=== PATIENT | female | born 1940 | race Caucasian/White ===

== ENCOUNTER 2019-03-19 21:19 | Emergency (ER) | payer OTHER, MEDICARE ==
[2019-03-19] MEDS ORDERED: SMZ./TMP. 800/160 MG TABLET ONE (21:48)
[2019-03-19] MEDS ORDERED: NYSTATIN 100MU/GM CREAM 15GM TOP ONE (21:48)
--- NOTE | 2019-03-19 22:00 | ER ---
Nurse's Notes [facility] Name: Feli Rae Age: 78 yrs Sex: Female : 1940 Arrival Date: 03/19/2019 Time: 21:23 Bed 7 Private MD: Diagnosis: Rash and other nonspecific skin eruption;Candidiasis of other sites-navel;Type 2 diabetes mellitus Presentation: 03/19 21:28 Presenting complaint: Patient states: "I've been lifting some heavy containers, that aj1 was a couple days ago but then I noticed I'm leaking some fluid from around my belly button.. I've had a surgery there for a hernia in 2008." Denies fever. Reports that the drainage is clear in color, but was blood tinged. Transition of care: patient was not received from another setting of care. Onset of symptoms was 2019. Risk Assessment: Do you want to hurt yourself or someone else? Patient reports no desire to harm self or others. Initial Sepsis Screen: Does the patient meet any 2 criteria? HR > 90 bpm. No. Patient's initial sepsis screen is negative. Does the patient have a suspected source of infection? Yes: Skin breakdown/wound. Care prior to arrival: None. 21:28 Method Of Arrival: Ambulatory aj1 21:28 Acuity: RAFAEL 3 aj1 Triage Assessment: 21:30 General: Appears in no apparent distress. comfortable, Behavior is calm, cooperative, aj1 appropriate for age. Pain: Denies pain. Neuro: Level of Consciousness is awake, alert, obeys commands. Cardiovascular: Patient's skin is warm and dry. Respiratory: Airway is patent Respiratory effort is even, unlabored, Respiratory pattern is regular, symmetrical. Historical: - Allergies: 21:30 PENICILLINS; aj1 - Home Meds: 21:30 Metoprolol Tartrate Oral [Active]; aj1 - PMHx: 21:30 Hypertension; aj1 - Immunization history:: Flu vaccine is up to date. - Social history:: Smoking status: Patient/guardian denies using tobacco. - Ebola Screening: : Patient denies travel to an Ebola-affected area in the 21 days before illness onset. - Family history:: not pertinent. Screenin:11 Abuse screen: Denies threats or abuse. Denies injuries from another. Nutritional lp1 screening: No deficits noted. Tuberculosis screening: No symptoms or risk factors identified. Fall Risk None identified. Assessment: 21:45 General: Appears in no apparent distress. Behavior is calm, cooperative, appropriate lp1 for age. Pain: Denies pain. Neuro: No deficits noted. Cardiovascular: No deficits noted. Respiratory: No deficits noted. GI: No signs and/or symptoms were reported involving the gastrointestinal system. : No signs and/or symptoms were reported regarding the genitourinary system. EENT: No signs and/or symptoms were reported regarding the EENT system. Derm: Rash noted that is red, on umbilical area. Musculoskeletal: No deficits noted. Vital Signs: 21:30 BP 189 / 100; Pulse 113; Resp 20; Temp 98.9; Pulse Ox 95% on R/A; Weight 77.11 kg (R); aj1 Height 5 ft. 6 in. (167.64 cm) (R); Pain 0/10; 22:00 BP 180 / 88; Pulse 89; Resp 18; Pulse Ox 98% on R/A; lp1 21:30 Body Mass Index 27.44 (77.11 kg, 167.64 cm) [facility] ED Course: 21:23 Patient arrived in ED. jg7 21:29 Triage completed. aj1 21:31 Arvind Zhao MD is Attending Physician. [facility] 21:31 Arm band placed on Patient placed in an exam room. aj1 21:39 Jerica Gama, KALIE is Primary Nurse. lp1 22:00 Patient has correct armband on for positive identification. lp1 22:11 No provider procedures requiring assistance completed. Patient did not have IV access lp1 during this emergency room visit. Administered Medications: 21:59 Drug: Nystatin-Triamcinolone 1 application {Note: umbilicus.} Route: Topical; Site: lp1 wound; 21:59 Drug: Bactrim (160 mg-800 mg (DS) 1 tablet Route: PO; lp1 22:12 Follow up: Response: Medication administered at discharge. lp1 Outcome: 22:00 Discharge ordered by . beverly 22:11 Discharged to home ambulatory, with significant other. lp1 22:11 Condition: good 22:11 Discharge instructions given to patient, Instructed on discharge instructions, follow up and referral plans. medication usage, wound care, Demonstrated understanding of instructions, follow-up care, medications, wound care, Prescriptions given X 2. 22:12 Patient left the ED. lp1 Signatures: Zuleyma Weaver RN RN aj1 Arvind Zhao MD MD cha Pena, Laura, RN RN lp1 Lamar Narvaez7
--- NOTE | 2019-03-19 22:00 | EDPHYS ---
Physician Documentation [facility] Name: Feli Rae Age: 78 yrs Sex: Female : 1940 Arrival Date: 03/19/2019 Time: 21:23 Bed 7 Private MD: ED Physician Arvind Zhao HPI: 03/19 21:43 This 78 yrs old Female presents to ER via Ambulatory with complaints of beverly DRAINAGE FROM NAVEL. 21:43 The patient presents with cellulitis of the umbilical area. Description: The affected beverly area is small, localized, draining, erythematous. Onset: The symptoms/episode began/occurred 2 day(s) ago. Possible cause(s): unknown. Associated signs and symptoms: The patient has no apparent associated signs or symptoms. Severity of symptoms: At their worst the symptoms were mild, in the emergency department the symptoms are unchanged. The patient has not experienced similar symptoms in the past. Historical: - Allergies: 21:30 PENICILLINS; aj1 - Home Meds: 21:30 Metoprolol Tartrate Oral [Active]; aj1 - PMHx: 21:30 Hypertension; aj1 - Immunization history:: Flu vaccine is up to date. - Social history:: Smoking status: Patient/guardian denies using tobacco. - Ebola Screening: : Patient denies travel to an Ebola-affected area in the 21 days before illness onset. - Family history:: not pertinent. ROS: 21:43 Constitutional: Negative for fever, chills, and weight loss, Eyes: Negative for injury, beverly pain, redness, and discharge, ENT: Negative for injury, pain, and discharge, Neck: Negative for injury, pain, and swelling, Cardiovascular: Negative for chest pain, palpitations, and edema, Respiratory: Negative for shortness of breath, cough, wheezing, and pleuritic chest pain, Abdomen/GI: Negative for abdominal pain, nausea, vomiting, diarrhea, and constipation, Back: Negative for injury and pain, : Negative for injury, bleeding, discharge, and swelling, MS/Extremity: Negative for injury and deformity, Neuro: Negative for headache, weakness, numbness, tingling, and seizure, Psych: Negative for depression, anxiety, suicide ideation, homicidal ideation, and hallucinations, Allergy/Immunology: Negative for hives, rash, and allergies, Endocrine: Negative for neck swelling, polydipsia, polyuria, polyphagia, and marked weight changes, Hematologic/Lymphatic: Negative for swollen nodes, abnormal bleeding, and unusual bruising. 21:43 Skin: Positive for erythema, rash. Exam: 21:43 Constitutional: This is a well developed, well nourished patient who is awake, alert, beverly and in no acute distress. Head/Face: Normocephalic, atraumatic. Eyes: Pupils equal round and reactive to light, extra-ocular motions intact. Lids and lashes normal. Conjunctiva and sclera are non-icteric and not injected. Cornea within normal limits. Periorbital areas with no swelling, redness, or edema. ENT: Nares patent. No nasal discharge, no septal abnormalities noted. Tympanic membranes are normal and external auditory canals are clear. Oropharynx with no redness, swelling, or masses, exudates, or evidence of obstruction, uvula midline. Mucous membranes moist. Neck: Trachea midline, no thyromegaly or masses palpated, and no cervical lymphadenopathy. Supple, full range of motion without nuchal rigidity, or vertebral point tenderness. No Meningismus. Chest/axilla: Normal chest wall appearance and motion. Nontender with no deformity. No lesions are appreciated. Cardiovascular: Regular rate and rhythm with a normal S1 and S2. No gallops, murmurs, or rubs. Normal PMI, no JVD. No pulse deficits. Respiratory: Lungs have equal breath sounds bilaterally, clear to auscultation and percussion. No rales, rhonchi or wheezes noted. No increased work of breathing, no retractions or nasal flaring. Abdomen/GI: Soft, non-tender, with normal bowel sounds. No distension or tympany. No guarding or rebound. No evidence of tenderness throughout. Back: No spinal tenderness. No costovertebral tenderness. Full range of motion. Female : Normal external genitalia. MS/ Extremity: Pulses equal, no cyanosis. Neurovascular intact. Full, normal range of motion. Neuro: Awake and alert, GCS 15, oriented to person, place, time, and situation. Cranial nerves II-XII grossly intact. Motor strength 5/5 in all extremities. Sensory grossly intact. Cerebellar exam normal. Normal gait. Psych: Awake, alert, with orientation to person, place and time. Behavior, mood, and affect are within normal limits. 21:43 Skin: cellulitis, that is minimal, induration, that is mild is noted, injury, is not appreciated, rash a mild rash is noted. Vital Signs: 21:30 BP 189 / 100; Pulse 113; Resp 20; Temp 98.9; Pulse Ox 95% on R/A; Weight 77.11 kg (R); aj1 Height 5 ft. 6 in. (167.64 cm) (R); Pain 0/10; 22:00 BP 180 / 88; Pulse 89; Resp 18; Pulse Ox 98% on R/A; lp1 21:30 Body Mass Index 27.44 (77.11 kg, 167.64 cm) aj1 MDM: 21:31 Patient medically screened. [facility] 21:43 Data reviewed: vital signs, nurses notes, lab test result(s). [facility] 03/19 22:04 Order name: Glucose, Ancillary Testing ED[facility] 03/19 21:42 Order name: Blood Glucose Level; Complete Time: 21:59 [facility] Administered Medications: 21:59 Drug: Nystatin-Triamcinolone 1 application {Note: umbilicus.} Route: Topical; Site: lp1 wound; 21:59 Drug: Bactrim (160 mg-800 mg (DS) 1 tablet Route: PO; lp1 22:12 Follow up: Response: Medication administered at discharge. lp1 Disposition: 03/19/19 22:00 Discharged to Home. Impression: Rash and other nonspecific skin eruption, Candidiasis of other sites - navel, Type 2 diabetes mellitus. - Condition is Stable. - Discharge Instructions: Type 2 Diabetes Mellitus, Diagnosis, Adult, Rash, Rash, [id number], Diabetes Mellitus and Food, Type 2 Diabetes Mellitus, Diagnosis, Adult, [id number], Skin Yeast Infection. - Prescriptions for Bactrim DS 800- 160 mg Oral Tablet - take 1 tablet by ORAL route every 12 hours for 7 days; 14 tablet. Nystatin- Triamcinolone 100,000-0.1 unit/gram-% Topical Ointment - apply 1 application by TOPICAL route 2 times per day; 22 gram. - Medication Reconciliation Form, Thank You Letter, Antibiotic Education, Prescription Opioid Use form. - Follow up: Private Physician; When: 2 - 3 days; Reason: Recheck today's complaints, Continuance of care, Re-evaluation by your physician. - Problem is new. - Symptoms have improved. Signatures: Dispatcher [employer] Zuleyma Montgomery, KALIE RN aj1 Arvind Zhao MD MD cha Pena, Laura, RN RN lp1 Corrections: (The following items were deleted from the chart) 22:12 22:00 03/19/2019 22:00 Discharged to Home. Impression: Rash and other nonspecific skin lp1 eruption; Candidiasis of other sites - navel; Type 2 diabetes mellitus. Condition is Stable. Discharge Instructions: Rash, Rash, [id number], Skin Yeast Infection. Prescriptions for Benadryl 25 mg Oral Capsule - take 1 capsule by ORAL route every 6 hours As needed; 30 tablet, Bactrim DS 800-160 mg Oral Tablet - take 1 tablet by ORAL route every 12 hours for 7 days; 14 tablet, Nystatin-Triamcinolone 100,000-0.1 unit/gram-% Topical Ointment - apply 1 application by TOPICAL route 2 times per day; 22 gram. and Forms are Medication Reconciliation Form, Thank You Letter, Antibiotic Education, Prescription Opioid Use. Follow up: Private Physician; When: 2 - 3 days; Reason: Recheck today's complaints, Continuance of care, Re-evaluation by your physician. Problem is new. Symptoms have improved. beverly
[2019-03-19 22:18] VITALS: TEMP 98.9
[2019-03-19 22:19] VITALS: BP 180/88; O2SAT 98
== END 2019-03-19 22:12 | disposition home or self-care (01) ==
LOC: ER 21:19
DX: B37.89 Other sites of candidiasis (principal); E11.9 Type 2 diabetes mellitus without complications; I10 Essential (primary) hypertension; Z88.0 Allergy status to penicillin
CPT/HCPCS: 82947; 99283

== ENCOUNTER 2020-02-07 09:55 | Emergency (ER) | payer OTHER, MEDICARE ==
[2020-02-07] MEDS ORDERED: FENTANYL CITR 100 MCG/2 ML ONE (10:30)
[2020-02-07 10:35] LABS: Absolute Lymphocytes (CBC) 1.3 K/uL (0.7-4.9); Basophils % 0.4 % (0-1.3); Hematocrit 39.4 % (36.0-45.0); Lymphocytes % 17.8 % (15.3-44.8); MPV 6.6 fL (7.6-11.3); RBC Red Blood Cell Count 4.39 M/uL (3.86-4.86)
[2020-02-07] MEDS ORDERED: HYDROMORPHONE HCL 1 MG/ML INJ ONE (11:16)
--- NOTE | 2020-02-07 11:43 | RAD REPORT ---
EXAM DESCRIPTION: CT - Head C Spine Mpr Wo Con - 02/07/2020 10:40 am CLINICAL HISTORY: Head and neck injury status post fall. Head and neck pain COMPARISON: None. TECHNIQUE: Computed axial tomography of the head and cervical spine was obtained. Sagittal and coronal reconstruction was performed. All CT scans are performed using dose optimization technique as appropriate and may include automated exposure control or mA/KV adjustment according to patient size. FINDINGS: An intracranial bleed is not seen. The ventricles are normal in caliber. An extra-axial fl uid collection is not noted.Fluid within the visualized sinuses and mastoids is not seen Avulsion fracture spinous process of C5. Minimally displaced fracture right lamina/inferior articular process C5. Minimally displaced fracture left lamina/inferior articular process C5 . Ossification involves the anterior aspect of the cervical vertebra involves the cervical spine IMPRESSION: No acute intracranial abnormality is seen. Avulsion fracture spinous process of C5. Minimally displaced fracture right lamina/inferior articular process C5. Minimally displaced fracture left lamina/inferior articular process C5 The exam was discussed with Dr. Zhao in the Emergency Room
[2020-02-07] MEDS ORDERED: NA CHLORIDE 0.9% 1,000 ML ONE (13:14)
--- NOTE | 2020-02-07 13:44 | EDPHYS ---
Physician Documentation [facility] Name: Feli Rae Age: 79 yrs Sex: Female : 1940 Arrival Date: 02/07/2020 Time: 09:59 Bed 3 Private MD: ED Physician Arvind Zhao HPI: 02/06 13:11 This 79 yrs old Female presents to ER via EMS with complaints of Fall Injury. snw 13:29 Details of fall: The patient fell from an upright position, pt slipped on conditioner snw while she was conditioner. 13:37 Onset: The symptoms/episode began/occurred suddenly, just prior to arrival. Associated snw injuries: The patient sustained neck injury, decreased range of motion, pain, pain with movement, tenderness. Severity of symptoms: At their worst the symptoms were moderate. The patient has not experienced similar symptoms in the past. pt was to see PCP, Dr. Polo, this am for check up. + LOC, no vomiting. Pt with GCS 15 on arrival. Historical: - Allergies: 10:06 PENICILLINS; em - PMHx: 10:06 Hypertension; Diabetes - NIDDM; em - PSHx: 10:06 ; em - Immunization history: Last tetanus immunization: - up to date. - Social history:: Smoking status: Patient denies any tobacco usage or history of. ROS: 10:00 Eyes: Negative for injury, pain, redness, and discharge, ENT: Negative for injury, snw pain, and discharge, Cardiovascular: Negative for chest pain, palpitations, and edema, Respiratory: Negative for shortness of breath, cough, wheezing, and pleuritic chest pain, Abdomen/GI: Negative for abdominal pain, nausea, vomiting, diarrhea, and constipation, Back: Negative for injury and pain, : Negative for injury, bleeding, discharge, and swelling, MS/Extremity: Negative for injury and deformity, Skin: Negative for injury, rash, and discoloration, Psych: Negative for depression, anxiety, suicide ideation, homicidal ideation, and hallucinations. 10:00 Constitutional: Positive for pain upon slipping and falling in bathroom this morning. 10:00 Neck: Positive for injury or acute deformity, pain with movement, pain at rest, C-collar placed prior to arrival. 10:00 Neuro: Positive for loss of consciousness, Negative for altered mental status. Exam: 10:00 Constitutional: This is a well developed, well nourished patient who is awake, alert, snw and in no acute distress. Head/Face: Normocephalic, atraumatic. Eyes: Pupils equal round and reactive to light, extra-ocular motions intact. Lids and lashes normal. Conjunctiva and sclera are non-icteric and not injected. Cornea within normal limits. Periorbital areas with no swelling, redness, or edema. ENT: Nares patent. No nasal discharge, no septal abnormalities noted. Tympanic membranes are normal and external auditory canals are clear. Oropharynx with no redness, swelling, or masses, exudates, or evidence of obstruction, uvula midline. Mucous membranes moist. Chest/axilla: Normal chest wall appearance and motion. Nontender with no deformity. No lesions are appreciated. Cardiovascular: Regular rate and rhythm with a normal S1 and S2. No gallops, murmurs, or rubs. Normal PMI, no JVD. No pulse deficits. Respiratory: Lungs have equal breath sounds bilaterally, clear to auscultation and percussion. No rales, rhonchi or wheezes noted. No increased work of breathing, no retractions or nasal flaring. Abdomen/GI: Soft, non-tender, with normal bowel sounds. No distension or tympany. No guarding or rebound. No evidence of tenderness throughout. Back: No spinal tenderness. No costovertebral tenderness. Full range of motion. Skin: Warm, dry with normal turgor. Normal color with no rashes, no lesions, and no evidence of cellulitis. MS/ Extremity: Pulses equal, no cyanosis. Neurovascular intact. Full, normal range of motion. Neuro: Awake and alert, GCS 15, oriented to person, place, time, and situation. Cranial nerves II-XII grossly intact. Motor strength 5/5 in all extremities. Sensory grossly intact. Cerebellar exam normal. Normal gait. Psych: Awake, alert, with orientation to person, place and time. Behavior, mood, and affect are within normal limits. 10:00 Neck: External neck: remains in C-collar placed prior to arrival. Pt states positive posterior pain, no loss of function or sensation.. Vital Signs: 10:00 BP 177 / 100; Pulse 88; Resp 18; Temp 98.4(O); Pulse Ox 94% on R/A; Weight 81.65 kg; em Height 5 ft. 6 in. (167.64 cm); Pain 5/10; 10:49 BP 187 / 98; Pulse 85; Resp 18; Pulse Ox 98% on 2 lpm NC; em 11:33 BP 173 / 94; Pulse 87; Resp 18; Pulse Ox 99% on 2 lpm NC; Pain 7/10; em 12:30 BP 177 / 81; Pulse 80; Resp 19; Pulse Ox 98% on 2 lpm NC; tw2 13:00 BP 155 / 97; Pulse 76; Resp 18; Pulse Ox 99% on 2 lpm NC; Pain 2/10; em 14:00 BP 184 / 86; Pulse 97; Resp 18; Pulse Ox 99% on 2 lpm NC; Pain 5/10; em 10:00 Body Mass Index 29.05 (81.65 kg, 167.64 cm) em Bridgett Coma Score: 10:00 Eye Response: spontaneous(4). Verbal Response: oriented(5). Motor Response: obeys em commands(6). Total: 15. 10:49 Eye Response: spontaneous(4). Verbal Response: oriented(5). Motor Response: obeys em commands(6). Total: 15. 11:41 Eye Response: spontaneous(4). Verbal Response: oriented(5). Motor Response: obeys em commands(6). Total: 15. 13:00 Eye Response: spontaneous(4). Verbal Response: oriented(5). Motor Response: obeys em commands(6). Total: 15. 14:00 Eye Response: spontaneous(4). Verbal Response: oriented(5). Motor Response: obeys em commands(6). Total: 15. Trauma Score (Adult): 10:00 Eye Response: spontaneous(1); Verbal Response: oriented(1); Motor Response: obeys em commands(2); Systolic BP: > 89 mm Hg(4); Respiratory Rate: 10 to 29 per min(4); Vance Score: 15; Trauma Score: 12 10:49 Eye Response: spontaneous(1); Verbal Response: oriented(1); Motor Response: obeys em commands(2); Systolic BP: > 89 mm Hg(4); Respiratory Rate: 10 to 29 per min(4); Bridgett Score: 15; Trauma Score: 12 11:41 Eye Response: spontaneous(1); Verbal Response: oriented(1); Motor Response: obeys em commands(2); Systolic BP: > 89 mm Hg(4); Respiratory Rate: 10 to 29 per min(4); Vance Score: 15; Trauma Score: 12 13:00 Eye Response: spontaneous(1); Verbal Response: oriented(1); Motor Response: obeys em commands(2); Systolic BP: > 89 mm Hg(4); Respiratory Rate: 10 to 29 per min(4); Vance Score: 15; Trauma Score: 12 14:00 Eye Response: spontaneous(1); Verbal Response: oriented(1); Motor Response: obeys em commands(2); Systolic BP: > 89 mm Hg(4); Respiratory Rate: 10 to 29 per min(4); Vance Score: 15; Trauma Score: 12 MDM: 10:13 Patient medically screened. [facility] 13:38 Data reviewed: vital signs, nurses notes. Data interpreted: Pulse oximetry: on room air snw is 99 %. Interpretation: normal. Counseling: I had a detailed discussion with the patient and/or guardian regarding: the historical points, exam findings, and any diagnostic results supporting the discharge/admit diagnosis, the presence of at least one elevated blood pressure reading (>120/80) during this emergency department visit, lab results, radiology results, the need to transfer to another facility, for higher level of care, [facility] does not immediately have the required specialist. Physician consultation: Dr Duarte and will see patient in ED, at [facility]. later today. 13:40 ED course: Pt much more comfortable at this time. snw 02/06 10:15 Order name: CBC with Diff; Complete Time: 10:59 snw 02/06 10:15 Order name: Chem 7; Complete Time: 10:59 snw 02/06 10:15 Order name: CT Head C Spine; Complete Time: 11:54 snw 02/06 10:15 Order name: C-Collar: continue; Complete Time: 10:16 snw 02/06 12:27 Order name: Hinson; Complete Time: 12:47 snw 02/06 12:28 Order name: Oxygen Per Protocol; Complete Time: 12:47 snw Administered Medications: 10:20 Drug: fentaNYL (PF) 50 mcg Route: IVP; Site: right antecubital; em 10:55 Follow up: Response: No adverse reaction; No change in condition; Pain is unchanged, em physician notified 11:04 Drug: Dilaudid 1 mg Route: IVP; Site: right antecubital; em 11:40 Follow up: Response: No adverse reaction; Marked relief of symptoms; Pain is decreased; em RASS: Drowsy (-1) 13:11 Drug: NS 0.9% 1000 ml Route: IV; Rate: 75 ml/hr; Site: right antecubital; em 14:04 Follow up: IV Status: Infusion continued upon transfer tw2 14:06 Drug: Dilaudid 0.5 mg Route: IVP; Site: right antecubital; em 14:14 Follow up: Response: Medication administered at discharge. em Disposition: 15:47 Co-signature as Attending Physician, Arvind Zhao MD I agree with the assessment and beverly plan of care. Disposition: 02/07/20 13:43 Transfer ordered to [facility]. Diagnosis is Fracture of fifth cervical vertebra. - Reason for transfer: Higher level of care. - Accepting physician is Dr. Duarte. - Condition is Stable. - Problem is new. - Symptoms are unchanged. Signatures: Dispatcher [employer] Arvind Phipps MD MD cha Waters, Shelly, CREDIT RESOLUTION REPRESENTATIVE-C CREDIT RESOLUTION REPRESENTATIVE-Csnw Mino Chowdary, RN RN Shena Lilly RN tw2 Corrections: (The following items were deleted from the chart) 14:25 13:43 02/07/2020 13:43 Transfer ordered to [facility]. Diagnosis is em Fracture of fifth cervical vertebra. Reason for transfer: Higher level of care. Accepting physician is Dr. Duarte. Condition is Stable. Problem is new. Symptoms are unchanged. snw
--- NOTE | 2020-02-07 13:44 | ER ---
Nurse's Notes [facility] Name: Feli Rae Age: 79 yrs Sex: Female : 1940 Arrival Date: 02/07/2020 Time: 09:59 Bed 3 Private MD: Diagnosis: Fracture of fifth cervical vertebra Presentation: 02/06 10:00 Chief complaint: EMS states: was in the shower washing hair and fell and hit her head, em reports positive LOC, does take 2 baby aspirin, also reports neck and upper back pain, was placed on backboard and placed on c-collar, 18 G RAC, given 15 mg Toradol IVP x 1 RETREADER. Care prior to arrival: Cervical collar in place. Placed on backboard. IV initiated. 18 GA, in the right antecubital area. Mechanism of Injury: Fall from standing position. Trauma event details: Injury occurred in the [facility]. 10:00 Acuity: RAFAEL 3 em 10:00 Method Of Arrival: EMS: [facility] em 10:08 Coronavirus screen: Client denies travel out of the [place] in the last 14 days. Ebola em Screen: Patient negative for fever greater than or equal to 101.5 degrees Fahrenheit, and additional compatible Ebola Virus Disease symptoms Patient denies exposure to infectious person. Patient denies travel to an Ebola-affected area in the 21 days before illness onset. No symptoms or risks identified at this time. Initial Sepsis Screen: Does the patient meet any 2 criteria? Yes Does the patient have a suspected source of infection? No. Patient's initial sepsis screen is negative. Risk Assessment: Do you want to hurt yourself or someone else? Patient reports no desire to harm self or others. Onset of symptoms was February 07, 2020. Trauma Activation: Alert Physician: ED Physician; Name: Pavel; Notified At: ; Arrived At: Physician: General Surgeon; Name: ; Notified At: ; Arrived At: Physician: Radiology; Name: ; Notified At: ; Arrived At: Physician: Respiratory; Name: ; Notified At: ; Arrived At: Physician: Lab; Name: ; Notified At: ; Arrived At: Historical: - Allergies: 10:06 PENICILLINS; em - PMHx: 10:06 Hypertension; Diabetes - NIDDM; em - PSHx: 10:06 ; em - Immunization history: Last tetanus immunization: - up to date. - Social history:: Smoking status: Patient denies any tobacco usage or history of. Screenin:00 Abuse screen: Denies threats or abuse. Nutritional screening: No deficits noted. em Tuberculosis screening: No symptoms or risk factors identified. 10:00 Fall Risk Fall in past 12 months (25 points). em Primary Survey: 10:00 NO uncontrolled hemorrhage observed. A: The patient is alert. Airway: patent. em Breathing/Chest: Respiratory pattern: regular, Respiratory effort: spontaneous. Circulation: Cardiac rhythm: sinus rhythm. Disability Alert. Exposure/Environment: All clothing and personal items were removed. There is no evidence of uncontrolled external bleeding. 11:00 Reassessment Airway Airway Patent Breathing/Chest Respiratory pattern Regular em Circulation Heart tones Present Color [place] Disability Alert. Assessment: 10:00 General: Appears in no apparent distress. uncomfortable, Behavior is calm, cooperative, em appropriate for age. Pain: Complains of pain in thoracic area and neck Pain currently is 5 out of 10 on a pain scale. Neuro: Level of Consciousness is awake, alert, obeys commands, Oriented to person, place, time, situation, Reports a syncopal episode. Cardiovascular: Capillary refill < 3 seconds Patient's skin is warm and dry. Respiratory: Airway is patent Respiratory effort is even, unlabored, Respiratory pattern is regular, symmetrical. GI: Abdomen is flat, Patient currently denies nausea, vomiting. Derm: Skin is intact, is healthy with good turgor, Skin is pink, warm \T\ dry. Musculoskeletal: Capillary refill < 3 seconds, Range of motion: intact in all extremities. 10:55 Reassessment: reports pain is unchanged, reports pain has gotten worse, provider em notified. 11:33 Reassessment: Patient appears in no apparent distress at this time. Patient and/or em family updated on plan of care and expected duration. Pain level reassessed. Patient is alert, oriented x 3, equal unlabored respirations, skin warm/dry/pink. Patient states feeling better. 13:01 Reassessment: Patient appears in no apparent distress at this time. Patient and/or em family updated on plan of care and expected duration. Pain level reassessed. Patient is alert, oriented x 3, equal unlabored respirations, skin warm/dry/pink. reports feeling better, rates pain 2/10. 13:43 Reassessment: Patient appears in no apparent distress at this time. report given to ness López RN, pending transfer. 13:57 Reassessment: Patient appears in no apparent distress at this time. reports pain is em coming back, rates pain 5/10, provider notified. 14:08 Reassessment: Patient appears in no apparent distress at this time. report given to MARTY em EMS, pt placed on backboard and c-collar left in place. Vital Signs: 10:00 BP 177 / 100; Pulse 88; Resp 18; Temp 98.4(O); Pulse Ox 94% on R/A; Weight 81.65 kg; em Height 5 ft. 6 in. (167.64 cm); Pain 5/10; 10:49 BP 187 / 98; Pulse 85; Resp 18; Pulse Ox 98% on 2 lpm NC; em 11:33 BP 173 / 94; Pulse 87; Resp 18; Pulse Ox 99% on 2 lpm NC; Pain 7/10; em 12:30 BP 177 / 81; Pulse 80; Resp 19; Pulse Ox 98% on 2 lpm NC; tw2 13:00 BP 155 / 97; Pulse 76; Resp 18; Pulse Ox 99% on 2 lpm NC; Pain 2/10; em 14:00 BP 184 / 86; Pulse 97; Resp 18; Pulse Ox 99% on 2 lpm NC; Pain 5/10; em 10:00 Body Mass Index 29.05 (81.65 kg, 167.64 cm) em [place] Coma Score: 10:00 Eye Response: spontaneous(4). Verbal Response: oriented(5). Motor Response: obeys em commands(6). Total: 15. 10:49 Eye Response: spontaneous(4). Verbal Response: oriented(5). Motor Response: obeys em commands(6). Total: 15. 11:41 Eye Response: spontaneous(4). Verbal Response: oriented(5). Motor Response: obeys em commands(6). Total: 15. 13:00 Eye Response: spontaneous(4). Verbal Response: oriented(5). Motor Response: obeys em commands(6). Total: 15. 14:00 Eye Response: spontaneous(4). Verbal Response: oriented(5). Motor Response: obeys em commands(6). Total: 15. Trauma Score (Adult): 10:00 Eye Response: spontaneous(1); Verbal Response: oriented(1); Motor Response: obeys em commands(2); Systolic BP: > 89 mm Hg(4); Respiratory Rate: 10 to 29 per min(4); [place] Score: 15; Trauma Score: 12 10:49 Eye Response: spontaneous(1); Verbal Response: oriented(1); Motor Response: obeys em commands(2); Systolic BP: > 89 mm Hg(4); Respiratory Rate: 10 to 29 per min(4); [place] Score: 15; Trauma Score: 12 11:41 Eye Response: spontaneous(1); Verbal Response: oriented(1); Motor Response: obeys em commands(2); Systolic BP: > 89 mm Hg(4); Respiratory Rate: 10 to 29 per min(4); [place] Score: 15; Trauma Score: 12 13:00 Eye Response: spontaneous(1); Verbal Response: oriented(1); Motor Response: obeys em commands(2); Systolic BP: > 89 mm Hg(4); Respiratory Rate: 10 to 29 per min(4); [place] Score: 15; Trauma Score: 12 14:00 Eye Response: spontaneous(1); Verbal Response: oriented(1); Motor Response: obeys em commands(2); Systolic BP: > 89 mm Hg(4); Respiratory Rate: 10 to 29 per min(4); Bridgett Score: 15; Trauma Score: 12 ED Course: 09:59 Patient arrived in ED. em 10:00 Arm band placed on. em 10:00 Patient has correct armband on for positive identification. Placed in gown. Bed in low em position. Call light in reach. Side rails up X2. Pulse ox on. NIBP on. 10:00 Maintain EMS IV. Dressing intact. Good blood return noted. Site clean \T\ dry. Gauge \T\ em site: 18 G RAC. 10:00 Patient maintains SpO2 saturation greater than 95% on room air. Thermoregulation: warm em blanket given to patient. 10:03 Triage completed. em 10:07 Mino Chowdary RN is Primary Nurse. em 10:13 Arvind Zhao MD is Attending Physician. beverly 10:14 Angle Viveros FNP-C is [facility]. snw 10:14 Arvind Zhao MD is Attending Physician. snw 10:38 CT Head C Spine In Process Unspecified. EDMS 12:46 Hinson cath inserted, using sterile technique, 16 Fr., by me, balloon inflated, to ss gravity drainage. 13:15 No provider procedures requiring assistance completed. em 14:18 Patient transferred, IV remains in place. em Administered Medications: 10:20 Drug: fentaNYL (PF) 50 mcg Route: IVP; Site: right antecubital; em 10:55 Follow up: Response: No adverse reaction; No change in condition; Pain is unchanged, em physician notified 11:04 Drug: Dilaudid 1 mg Route: IVP; Site: right antecubital; em 11:40 Follow up: Response: No adverse reaction; Marked relief of symptoms; Pain is decreased; em RASS: Drowsy (-1) 13:11 Drug: NS 0.9% 1000 ml Route: IV; Rate: 75 ml/hr; Site: right antecubital; em 14:04 Follow up: IV Status: Infusion continued upon transfer tw2 14:06 Drug: Dilaudid 0.5 mg Route: IVP; Site: right antecubital; em 14:14 Follow up: Response: Medication administered at discharge. em Output: 14:10 Urine: 500ml (Hinson); Total: 500ml. em Outcome: 13:43 ER care complete, transfer ordered by . snw 14:18 Transferred by ground EMS to [facility], Transfer form completed. X-rays sent em w/ patient. 14:18 Condition: stable 14:18 Patient's length of stay in the Emergency Department was greater than 2 hours. pending accepting transfer Patient's length of stay extended due to 14:25 Patient left the ED. em Signatures: Dispatcher [employer] EDMS Arvind Zhao MD MD cha Waters, Shelly, FNP-C [facility] Mino Chowdary, KALIE JADE Brianda Yang RN RN Shena Botello RN RN tw2
[2020-02-07] MEDS ORDERED: HYDROMORPHONE HCL 0.5 MG/0.5 ML INJ ONE (14:13)
[2020-02-07 15:45] VITALS: TEMP 98.4
[2020-02-07 15:52] VITALS: O2SAT 99
[2020-02-07 15:55] VITALS: BP 184/86
== END 2020-02-07 14:25 | disposition short-term general hospital (02) ==
LOC: ER 09:55
DX: S12.400A Unspecified displaced fracture of fifth cervical vertebra, initial encounter for closed fracture (principal); W01.0XXA Fall on same level from slipping, tripping and stumbling without subsequent striking against object, initial encounter; Y93.E1 Activity, personal bathing and showering; Y92.9 Unspecified place or not applicable; I10 Essential (primary) hypertension; Z88.0 Allergy status to penicillin
CPT/HCPCS: 85025; 80048; 36415; 70450; 72125; J3010; J1170 ×2; J7030; 51702; 96361; 96374; 96375; 99285; G0390

== ENCOUNTER 2020-02-14 09:40 | Inpatient (IN) | payer OTHER, MEDICARE ==
--- NOTE | 2020-02-14 12:17 | R.PREADM ---
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 ACUTE CLINICAL PROJECT MANAGER/DC ABRASIVE SAWYER ZOHREH RICHARDS ATTENDING PHYSICIAN IRASEMA PALACIO DO REFERRING PHYSICIAN IRASEMA PALACIO DO REHAB FACILITY [facility] CLINICAL LIAISON Karel Mejia PHYSICIAN REVIEWER Dr. Asim Sanchez M.D. MR# [id number] NAME CHELY WAGNER ADDRESS [address] [place] [address] PHONE [facility] [id number] DATE OF 1940 AGE 79 SSN# [id number] GENDER female MARITAL STATUS RACE unknown race ADMIT FROM 02 - [facility] PRE-HOSPITAL LIVING SETTING 01 - Home (private home/apt. board/care, assisted living, mcc, transitional living) HOME TYPE AND DETAILS Type of home: single family house # of levels in the residence: 1 # of steps within the residence: 0 # of steps to enter the residence: 0 PRE-HOSPITAL LIVING WITH Family/Relatives FAMILY SUPPORT Yes PHONE PRIMARY FAMILY CONTACT ON ADM.? no IS PRIMARY FAMILY CONTACT AUTH. REP.? no PHONE 1ST CONTACT ON ADM. no IS 1ST CONTACT AUTH. REP.? no PHONE 2ND CONTACT ON ADM.? no PATIENT EMPLOYMENT STATUS Retired (for age) PATIENT EMPLOYER No Employer PAYOR INFORMATION: 1ST PAYOR NAME MEDICARE 1ST PAYOR PHONE 1ST PAYOR INJURY/ILLNESS DUE TO ACCIDENT? No ANOTHER CONSTITUTION PARTY RESPONSIBLE? No PRIMARY REHAB/ACUTE DIAGNOSIS: FRACTURE OF SIXTH CERVICAL VERTEBRA ONSET DATE 02/07/2020 REHAB IMPAIRMENT CATEGORY (BARBARA): 04 Traumatic spinal cord injury (TSCI) MEETS 60% rule PRIMARY DIAGNOSIS-RELATED SURGERIES: C3T2 PS1F,C4-C7 LAMINECTOMY SUMMARY OF ACUTE HOSPITALIZATION: Pt. is a 79 yo Right-handed female of unknown race. On 02/07/2020 she was admitted to [facility] with diagnosis FRACTURE OF SIXTH CERVICAL VERTEBRA . 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 Pre-morbidly, Pt. was independent/mod-I in Locomotion, Balance, Safety Awareness, Transfers Control, and Self-Care; and she had good Endurance and Communication. Currently, she has deficits of Locomotion, Balance, Sphincter Control, and Self-Care. Pt. is now referred to [facility] for acute in-patient rehabilitation in order to maximize patient's functional independence in activities of daily living, strength, ROM, and mobi lity. Patient has realistic goal of being discharged at assistance level 7-Ind to reside at Home with Fami ly/Relatives. PAST MEDICAL HISTORY DIABETES HYPERTENSION AFIB CERVICAL SPINAL FRX PAST SURGICAL HISTORY: CS X2 HERNIA REPAIR X2 HYSTERECTOMY MEDICATION ALLERGIES: No Known Drug Allergies (NKDA) ENVIRONMENTAL ALLERGIES: - Substance Allergies None Known - Other Allergies None Known CODE STATUS: Full code WEIGHT/HEIGHT/BMI: WEIGHT 180 lbs HEIGHT 5' 6" BMI 29 DIET: - Diet Type Regular - Diet - Solid Texture Regular - Diet - Liquid Texture Regular - Tube Feed N/A REVIEW OF SYSTEMS: - Gen Alert and awake Lying in bed No apparent distress Oriented to: person, time, and place - Vital Signs Temperature: 96.8 F SBP/DBP: 140/73 Pulse: 69 Resp: 21 Vital signs stable, afebrile - CVS RRR VITAL SIGNS Temperature: 96.8 F SBP/DBP: 140/73 Pulse: 69 Resp: 21 Vital signs stable, afebrile MEDICATIONS/TREATMENT: Other- See attached MAR (Medication Administration Record). CURRENT SPHINCTER CONTROL: Pre-hospital bladder status: unspecified # of bladder accidents in the last 7 days prior to screenin Pre-hospital bowel status: unspecified # of bowel accidents in the last 7 days prior to screenin Last Bowel Movement Date: 02/14/2020 CURRENT LOCOMOTION STATUS: distance walked 200 feet WITH ROLLING WALKER DETAILED CURRENT FUNCTIONAL STATUS: - Bladder accident frequency: Ind - No accidents in the past 7 days - Bowel accident frequency: Ind - No accidents in the past 7 days - Walking score based on distance walked: 0(N/A) score based on distance walked: 3(>=150ft) - Wheelchair score based on distance traveled: 0(N/A) QI SCORES: - Self-Care A. Eating 03-Partial/moderate assistance B. Oral hygiene 03-Partial/moderate assistance C. Toileting hygiene 88-Not attempted due to medical condition or safety concerns E. Shower/bathe self 03-Partial/moderate assistance F. Upper body dressing 02-Substantial/maximal assistance G. Lower body dressing 02-Substantial/maximal assistance - Mobility A. Roll left and right 03-Partial/moderate assistance B. Sit to lying 03-Partial/moderate assistance C. Lying to sitting on side of bed 03-Partial/moderate assistance D. Sit to stand 02-Substantial/maximal assistance E. Chair/[id number] transfer 02-Substantial/maximal assistance F. Toilet transfer 03-Partial/moderate assistance G. Car transfer 03-Partial/moderate assistance I. Walk 10 feet 03-Partial/moderate assistance J. Walk 50 feet with two turns 03-Partial/moderate assistance K. Walk 150 feet 03-Partial/moderate assistance L. Walking 10 feet on uneven surfaces 88-Not attempted due to medical condition or safety concerns M. 1 step (curb) 88-Not attempted due to medical condition or safety concerns N. 4 steps 88-Not attempted due to medical condition or safety concerns O. 12 steps 88-Not attempted due to medical condition or safety concerns P. Picking up object 88-Not attempted due to medical condition or safety concerns R. Wheel 50 feet with two turns 88-Not attempted due to medical condition or safety concerns S. Wheel 150 feet 88-Not attempted due to medical condition or safety concerns - Bladder and Bowel Bladder continence Bowel continence - Endurance Fair - Balance Fair - Safety Awareness Fair CURRENT FUNC. DEFICITS: Self-Care, Mobility, Endurance, Balance, and Safety Awareness HISTORY OF FALLS. HAS THE PATIENT HAD TWO OR MORE FALLS IN THE PAST YEAR OR ANY FALL WITH INJURY IN T HE PAST YEAR?: No PRIOR SURGERY. DID THE PATIENT HAVE MAJOR SURGERY DURING THE 100 DAYS PRIOR TO ADMISSION?: No THERAPY NOTES FROM ACUTE CARE: Attached. SPECIAL NEEDS: - Safety Concerns Skin breakdown precautions needed due to skin breakdown risk PATIENT NEEDS ACTIVE AND ONGOING THERAPEUTIC INTERVENTION OF MULTIPLE THERAPY DISCIPLINES, INCLUDING: - Orthotics/Prosthetics Orthotic Evaluation. Splinting/Casting. - Dietary and Nutrition Adequate Nutrition. Nutritional Education. Nutritional Supplements. PATIENT NEEDS CLOSE MEDICAL SUPERVISION BY A REHABILITATION PHYSICIAN FOR: Coordination of Treatment Team PATIENT REQUIRES 24X7 REHAB NURSING FOR MEDICAL AND FUNCTIONAL MGT. OF THE FOLLOWING DEFICITS: Disease Management Medication Management Patient/Family Education Providing Safe Environment PATIENT REQUIRES INTENSIVE, COORDINATED INTERDISCIPLINARY APPROACH TO REHAB: Arranging Home Equipment/Services Discharge Planning Family Intervention/Training Deputy Court Clerk/Case Management PATIENT REHAB POTENTIAL: Brian WAGNER is able and expected to receive 3 hours of individualized therapy daily on at least 5 of rody ry 7 days Brian ARREAGAs prognosis for significant practical improvement within a reasonable period of time appears Good Expected level of measurable improvement will be of a practical value to Brian ARREAGAs functional capaci ty or adaptations to impairments Has a viable Discharge Plan Medically appropriate; condition is sufficiently stable to participate in intensive rehab program DISCHARGE PLAN: - Estimated Length of Stay (days) 27. - Consensus on plan Discharge plan has been discussed with primary caregiver. Patient/Family is in agreement with the milli n. Primary caregiver is in agreement with the plan. - Patient/Family Goals Return home independently. - Planned Living Setting Upon Discharge Home, to live with Family/Relatives. Transitional Living. RECOMMENDED CARE LEVEL: IRF RECOMMENDATION DETAILS: Recommended Admission to Comprehensive Rehabilitation Program to Increase Functional [place] SCREENER'S COMPLETENESS CONFIRMATION: - Screening Confirmation The patient data collection on this preadmission screening form is finished PHYSICIANS REVIEW AND ADMISSION DETERMINATION Admit - Based on my review of the Pre-Admission Screening results, in my medical judgment and experie nce, I concur with the findings and recommend admission to [facility], as this patient requires an IRF level of care. SIGNATURE PANEL: Hearing Officer - [electronically] signed by Karel Mejia on 02/14/2020 at 11:17 (STRETCHING PRESS OPERATOR) Hearing Officer - [electronically] signed by Hieu Conn PT on 02/14/2020 at 12:07 (STRETCHING PRESS OPERATOR) Physician Reviewer - [electronically] signed by Dr. Asim Sanchez M.D. on 02/14/2020 at 12:17 (STRETCHING PRESS OPERATOR )
[2020-02-14] MEDS ORDERED: D50W 25 GM/50 ML SYRINGE IV PRN (18:41)
[2020-02-14] MEDS ORDERED: DOCUSATE NA/SENNA CONC 1 TAB PO PRN (18:41)
[2020-02-14] MEDS ORDERED: GLUCAGON 1 MG/VIAL IM PRN (18:41)
[2020-02-14] MEDS ORDERED: METOPROLOL TAR 50 MG TAB PO SCH (20:00)
[2020-02-14] MEDS: TRAMADOL HCL 50 MG TAB PO PRN (20:19)
[2020-02-14] MEDS: METOPROLOL TAR 50 MG TAB PO SCH (20:20)
[2020-02-14 21:33] LABS: Urine Appearance CLOUDY; Urine Bilirubin NEGATIVE (NEG); Urine Blood NEGATIVE (NEG); Urine Color YELLOW; Urine Glucose TRACE (NEG); Urine Protein NEGATIVE (NEG); Urine Urobilinogen 0.2 mg/dL (0.2-1.0); Urine pH 5.5 (5.0-7.0)
[2020-02-14 21:48] LABS: Urine Bacteria <20 /HPF (<20); Urine RBC <5 /HPF (NONE SEEN); Urine Yeast PRESENT (NONE SEEN)
[2020-02-15] MEDS ORDERED: LOPERAMIDE HCL 2 MG CAPSULE PO PRN (03:19)
[2020-02-15 06:10] LABS: Albumin 2.9 g/dL (3.4-5.0); BUN Blood Urea Nitrogen 12 mg/dL (7-18); Bicarbonate 27 mmol/L (21-32); Glucose Level 173 mg/dL (74-106); Magnesium 2.1 mg/dL (1.8-2.4); Potassium 3.7 mmol/L (3.5-5.1); Prealbumin 15.5 mg/dL (20-40); Sodium Level 140 mmol/L (136-145)
[2020-02-15 07:01] LABS: Absolute Lymphocytes (CBC) 1.4 K/uL (0.7-4.9); Basophils % 0.6 % (0-1.3); Hematocrit 36.4 % (36.0-45.0); Lymphocytes % 16.3 % (15.3-44.8); MPV 6.6 fL (7.6-11.3); RBC Red Blood Cell Count 3.95 M/uL (3.86-4.86)
[2020-02-15] MEDS: ENOXAPARIN 30 MG/0.3 ML SQ SCH ×2 (07:14→19:37)
[2020-02-15] MEDS: INSULIN GLARGINE 100 UNITS/ML SQ SCH (07:56)
[2020-02-15] MEDS: METOPROLOL TAR 50 MG TAB PO SCH ×2 (07:57→19:37)
[2020-02-15] MEDS: TRAMADOL HCL 50 MG TAB PO PRN ×2 (07:58→12:11)
[2020-02-15] MEDS: CALCIUM CARBONATE 500 MG TAB PO SCH ×2 (07:58→19:37)
[2020-02-15] MEDS: ASPIRIN 81 MG CHEWABLE TABLET PO SCH (07:58)
[2020-02-15] MEDS ORDERED: GLUCAGON 1 MG/VIAL IM PRN (09:15)
[2020-02-15] MEDS ORDERED: D50W 25 GM/50 ML SYRINGE IV PRN (09:15)
[2020-02-15] MEDS ORDERED: LOPERAMIDE HCL 2 MG CAPSULE PO ONE (10:45)
[2020-02-15] MEDS: INSULIN -REGULAR HUMAN 50 UNIT/0.5 ML ML SQ SCH ×3 (12:13→19:46)
--- NOTE | 2020-02-15 17:56 | R.HP ---
HISTORY AND PHYSICAL FACILITY: [facility] ENCOUNTER DATE AND TIME: 02/15/2020 17:50 (INFORMATION CODER) MR#: [id number] NAME CHELY WAGNER ADDRESS: [address] [place] [address]: [place] [id number] PHONE: DATE OF : 1940 AGE: 79 SSN# [id number] GENDER: Female DEXTERITY Right-handed MARITAL STATUS RACE Unknown race PRE-HOSPITAL LIVING SETTING 01 - Home (private home/apt. board/care, assisted living, mcc, transitional living) PRE-HOSPITAL LIVING WITH Family/Relatives ENCOUNTER PHYSICIAN: Dr. Asim Sanchez M.D. REFERRING DOCTOR: IRASEMA PALACIO DO DATE OF ADMISSION: 02/14/2020 17:15 (INFORMATION CODER) REFERRING FACILITY [facility] HOME TYPE AND DETAILS: Type of home: single family house # of levels in the residence: 1 # of steps within the residence: 0 # of steps to enter the residence: 0 ONSET DATE: 02/07/2020 PRIMARY DIAGNOSIS-RELATED SURGERIES: C3T2 PS1F,C4-C7 LAMINECTOMY HISTORY OF PRESENT ILLNESS (HPI): Pt. is a 79 yo Right-handed female of unknown race. On 02/07/2020 [address] to [facility] with diagnosis FRACTURE OF SIXTH CERVICAL VERTEBRA . 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 Pre-morbidly, Pt. was independent/mod-I in Locomotion, Balance, Safety Awareness, Transfers Control, and Self-Care; and she had good Endurance and Communication. Currently, she has deficits of Locomotion, Balance, Sphincter Control, and Self-Care. Pt. is now referred to [facility] for acute in-patient rehabilitation in order to maximize patient's functional independence in activities of daily living, strength, ROM, and mobi lity. Patient has realistic goal of being discharged at assistance level 7-Ind to reside at Home with Fami ly/Relatives. MEDICATION ALLERGIES: No Known Drug Allergies (NKDA) ENVIRONMENTAL ALLERGIES: - Substance Allergies None Known - Other Allergies None Known PAST MEDICAL HISTORY: DIABETES HYPERTENSION AFIB CERVICAL SPINAL FRX PAST SURGICAL HISTORY: CS X2 HERNIA REPAIR X2 HYSTERECTOMY SOCIAL HISTORY: - Home Living Family/Relatives REVIEW OF SYSTEMS: - Gen No Chills No Fatigue No Fever - Eyes No Double Vision No itchiness - ENMT No Difficulty Swallowing - CVS No Chest Discomfort No Chest Pain No Fatigue No Weight Gain - Resp No Cough No Shortness of Breath - GI Continent No Abdominal Pain No Constipation Diarrhea - Continent No Kidney Pain No Painful Urination No Urinary Urgency - MSK No Joint Pain Muscle Cramps Stiffness - Skin No Itching No Rash No Suspicious Lesions - Neuro Coordination Difficulty No Difficulty with Concentration No Memory Loss No Seizures No Weakness - Psych No Anxiety No Depression No HIV Exposure No Persistent Infections No Seasonal Allergies - Endo No Cold/Heat Intolerance No Excessive Hunger No Excessive Thirst No Excessive Urination PHYSICAL EXAM - Gen Alert and awake Lying in bed No apparent distress Oriented to: person, time, and place - Skin No skin breakdown. No abnormalities - Eyes No abnormalities - ENMT No abnormalities - Neck No abnormalities - CVS RRR - Chest No abnormalities - Resp Clear to auscultation - Abd Soft - GI Soft No abnormalities - No abnormalities - Ext No significant edema - MSK Unremarkable - Neuro No focal deficits - Psych No abnormalities VITAL SIGNS Temperature: 98.7 F SBP/DBP: 140/67 Pulse: 75 Resp: 16 NURSING: - Shower allowing shower - Bladder care per protocol - Skin care per protocol ACTIVITIES OOB only with supervision QI SCORES: - Self-Care A. Eating 03-Partial/moderate assistance B. Oral hygiene 03-Partial/moderate assistance C. Toileting hygiene 88-Not attempted due to medical condition or safety concerns E. Shower/bathe self 03-Partial/moderate assistance F. Upper body dressing 02-Substantial/maximal assistance G. Lower body dressing 02-Substantial/maximal assistance - Mobility A. Roll left and right 03-Partial/moderate assistance B. Sit to lying 03-Partial/moderate assistance C. Lying to sitting on side of bed 03-Partial/moderate assistance D. Sit to stand 02-Substantial/maximal assistance E. Chair/mva-kw-paloi transfer 02-Substantial/maximal assistance F. Toilet transfer 03-Partial/moderate assistance G. Car transfer 03-Partial/moderate assistance I. Walk 10 feet 03-Partial/moderate assistance J. Walk 50 feet with two turns 03-Partial/moderate assistance K. Walk 150 feet 03-Partial/moderate assistance L. Walking 10 feet on uneven surfaces 88-Not attempted due to medical condition or safety concerns M. 1 step (curb) 88-Not attempted due to medical condition or safety concerns N. 4 steps 88-Not attempted due to medical condition or safety concerns O. 12 steps 88-Not attempted due to medical condition or safety concerns P. Picking up object 88-Not attempted due to medical condition or safety concerns R. Wheel 50 feet with two turns 88-Not attempted due to medical condition or safety concerns S. Wheel 150 feet 88-Not attempted due to medical condition or safety concerns - Bladder and Bowel Bladder continence Bowel continence - Endurance Fair - Balance Fair - Safety Awareness Fair CURRENT FUNC. DEFICITS: Self-Care, Mobility, Endurance, Balance, and Safety Awareness MEDICATIONS: - Other See attached MAR (Medication Administration Record) ASSESSMENT: Pt. is a 79 yo Right-handed female of unknown race.On 02/07/[address] 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 was independent/mod-I in L ocomotion, Balance, Safety Awareness, Transfers Control, and Self-Care; and she had good Endurance an d Communication.Currently, she has deficits of Locomotion, Balance, Sphincter Control, and Self-Care. Pt. is now referred to [facility] for acute in-patient rehabilitation in order to maximize patient's functional independence in activities of daily living, strength, ROM, and mobi lity.- Rehab Goal Patient has realistic goal of being discharged at assistance level 7-Ind to reside at Home with Fami ly/Relatives. - Physical Therapy Gait dysfunction - to improve, our physical therapists will perform initial evaluation of pt's status upon admission and devise an individualized program for Gait Training, and Wheel Chair mobility Need for home safety evaluation - to improve, our physical therapists will perform initial evaluation of pt's status upon admission and devise an individualized program for Home Evaluation Need in caregiver upon discharge - to improve, our physical therapists will perform initial evaluatio n of pt's status upon admission and devise an individualized program for Caregiver Training New precaution - to improve, our physical therapists will perform initial evaluation of pt's status u janet admission and devise an individualized program for Patient precaution education Edema - to improve, our physical therapists will perform initial evaluation of pt's status upon admi ssion and devise an individualized program for Elevation Training, and Lymphedema Therapy Poor balance - to improve, our physical therapists will perform initial evaluation of pt's status upo n admission and devise an individualized program for Balance Training Weakness - to improve, our physical therapists will perform initial evaluation of pt's status upon ad mission and devise an individualized program for Aquatic Therapy, Neuromuscular Reeducation, and Stre ngthening Achieving independence - to improve, our physical therapists will perform initial evaluation of pt's status upon admission and devise an individualized program for Community Reintegration Activities - Occupational Therapy ADL deficits - to improve, our occupation therapists will perform initial evaluation of pt's status u janet admission and devise an individualized program for Bathing, Bed mobility, Community Reintegration , Cooking, Dressing, Eating, Fine Motor Skills, Grooming, Homemaking, Kitchen Mobility, Laundry, Randa ent Education, Safety Awareness, Splinting - Positioning, Transfers(Toilet, Tub, Shower), and Wheel C hair Management Need for home care chaplain - to improve, our occupation therapists will perform initial evaluation of pt's s tatus upon admission and devise an individualized program for Caregiver Training Weakness - to improve, our occupation therapists will perform initial evaluation of pt's status upon admission and devise an individualized program for Aquatic Therapy, Balance, Endurance, UE ROM, and U E strengthening MEDICAL PLAN: - Diet Type Start Regular - Diet - Liquid Texture Start Regular - Tube Feed Start N/A - Bladder care per protocol - Skin care per protocol - Other See attached MAR (Medication Administration Record) - Diet - Solid Texture Regular - Shower shower DISCHARGE PLAN: - Estimated Length of Stay (days) 27. - Consensus on plan Discharge plan has been discussed with primary caregiver. Patient/Family is in agreement with the milli n. Primary caregiver is in agreement with the plan. - Patient/Family Goals Return home independently. - Planned Living Setting Upon Discharge Home, to live with Family/Relatives. Transitional Living. SIGNATURE PANEL: (INFORMATION CODER)
--- NOTE | 2020-02-15 17:57 | PAPE ---
POST ADMISSION PHYSICIAN EVALUATION PATIENT: [facility] MR# [id number] REFERRING DOCTOR IRASEMA PALACIO DO EVALUATION DATE AND TIME 02/15/2020 17:56 (EMERGENCY PLANNING AND RESPONSE MANAGER) NAME CHELY WAGNER DATE OF 1940 AGE 79 PHONE SSN# [id number] GENDER female EVALUATING PHYSICIAN Dr. Asim Sanchez M.D. ADMISSION DIAGNOSIS: FRACTURE OF SIXTH CERVICAL VERTEBRA ONSET DATE 02/07/2020 POST-ADMISSION FUNCTIONAL/MEDICAL STATUS: - Bladder Same accident frequency: Ind - No accidents in the past 7 days - Bowel Same accident frequency: Ind - No accidents in the past 7 days - Walking Same score based on distance walked: 0(N/A) Same score based on distance walked: 3(>=150ft) - Wheelchair Same score based on distance traveled: 0(N/A) STATUS CHANGE EVALUATION: No change in Functional or Medical Status is identified compared with Pre-Admission screening. PATIENT NEEDS CLOSE MEDICAL SUPERVISION BY A REHABILITATION PHYSICIAN FOR: Coordination of Treatment Team PATIENT REQUIRES 24X7 REHAB NURSING FOR MEDICAL AND FUNCTIONAL MGT. OF THE FOLLOWING DEFICITS: Disease Management Medication Management Patient/Family Education Providing Safe Environment PATIENT REQUIRES INTENSIVE, COORDINATED INTERDISCIPLINARY APPROACH TO REHAB: Arranging Home Equipment/Services Discharge Planning Family Intervention/Training Machine Learning Intern/Case Management LIST OF IDENTIFIED AND POTENTIAL PROBLEMS: Alteration in leisure activities Bladder, Incontinence Bowel, Incontinence Infection, Actual or Potential Mobility Impaired Pain, Alteration in Comfort Self Care Deficit Skin Integrity, Actual or Potential Urinary Tract Infection (UTI), Actual or Potential PATIENT COULD BE AT RISK FOR COMPLICATIONS FROM ADVERSE MEDICAL CONDITIONS DUE TO HIS/HER COMORBIDITI ES AND THE RIGORS OF THE INTENSIVE REHABILLITATION PROGRAM. METHODS OR INTERVENTIONS TO AVOID COMPLIC ATIONS INCLUDE: - Infection Clinical staff to assess and manage the signs and symptoms of infection including fever, redness, war mth, etc. - Urinary Tract Infection - Falls Patient will be evaluated for Fall Precautions and will be placed on Fall Precautions as indicated pe r protocol. - Skin Breakdown Nursing will assess skin daily using assessment tool and will place on Skin Breakdown Precautions as indicated per protocol. - Pain Clinical staff may employ non-medication methods such as massage, distraction, decrease stimulus, etc . as needed. Clinical staff will assess patient's pain level every shift per protocol to assess and e nsure pain management effectiveness. Medications will be given and the pain level re-assessed. PRELIMINARY PLAN OF CARE: - Physical Therapy Patient needs Physical Therapy for a daily minimum of 1.5 hours at least 5 out of 7 days, to improve: Mobility, Strengthening, Transfers, Stretching, ROM, Endurance, Ability to manage stairs, Gait, and Balance. - Rehabilitation Nursing Patient requires 24x7 Rehabilitation Nursing for: Pain Issues, Identifying and preventing risk factor s, Monitoring and reporting current medical conditions, Assisting with ambulation and transfer, Festus ting with all ADL-s, Teaching patients about disease process and medications, Family teaching, Provid ing safe environment, Bowel and Bladder Issues, Skin Integrity, and Medication Management. Patient needs Machine Learning Intern and/or Case Management for: Discharge Planning, Arranging Home Equipmen t or Services, and Family Interventions. - Dietary and Nutrition Services Patient needs Dietary and Nutrition Services for: Adequate Nutrition, Nutritional Supplements, and Nu tritional Education. - Occupational Therapy Patient needs Occupational Therapy for a daily minimum of 1.5 hours at least 5 out of 7 days, to impr ove Activities of Daily Living, including: Eating, Grooming, Bathing, Dressing, Toileting, Toilet Tra nsfers, Community Reintegration, Higher functional activities, Adaptive Equipment, Splinting, Househo ld Tasks, and Other activities as determined. QI SCORES: - Self-Care A. Eating 03-Partial/moderate assistance B. Oral hygiene 03-Partial/moderate assistance C. Toileting hygiene 88-Not attempted due to medical condition or safety concerns E. Shower/bathe self 03-Partial/moderate assistance F. Upper body dressing 02-Substantial/maximal assistance G. Lower body dressing 02-Substantial/maximal assistance - Mobility A. Roll left and right 03-Partial/moderate assistance B. Sit to lying 03-Partial/moderate assistance C. Lying to sitting on side of bed 03-Partial/moderate assistance D. Sit to stand 02-Substantial/maximal assistance E. Chair/rur-xs-akvwr transfer 02-Substantial/maximal assistance F. Toilet transfer 03-Partial/moderate assistance G. Car transfer 03-Partial/moderate assistance I. Walk 10 feet 03-Partial/moderate assistance J. Walk 50 feet with two turns 03-Partial/moderate assistance K. Walk 150 feet 03-Partial/moderate assistance L. Walking 10 feet on uneven surfaces 88-Not attempted due to medical condition or safety concerns M. 1 step (curb) 88-Not attempted due to medical condition or safety concerns N. 4 steps 88-Not attempted due to medical condition or safety concerns O. 12 steps 88-Not attempted due to medical condition or safety concerns P. Picking up object 88-Not attempted due to medical condition or safety concerns R. Wheel 50 feet with two turns 88-Not attempted due to medical condition or safety concerns S. Wheel 150 feet 88-Not attempted due to medical condition or safety concerns - Bladder and Bowel Bladder continence Bowel continence - Endurance Fair - Balance Fair - Safety Awareness Fair POTENTIAL FUNCTIONAL GOALS FOR PATIENT TO ACHIEVE BY DISCHARGE: - Safety Precaution Patient will remain free from falls or injury at time of discharge. - Bed Mobility Patient will perform bed mobility at 4-Danielle level of assistance. - Transfers Patient will complete transfers from bed to chair at 4-Danielle level of assistance. - Mobility Patient will ambulate 150 ft with 4-Danielle level of assistance with RW. PATIENT REHAB POTENTIAL Brian WAGNER is able and expected to receive 3 hours of individualized therapy daily on at least 5 of 7 days Brian WAGNER's prognosis for significant practical improvement within a reasonable period of time appears Good Expected level of measurable improvement will be of a practical value to Brian WAGNER's functional capaci ty or adaptations to impairments Has a viable Discharge Plan Medically appropriate; condition is sufficiently stable to participate in intensive rehab program DISCHARGE PLAN: - Estimated Length of Stay (days) 27. - Consensus on plan Discharge plan has been discussed with primary caregiver. Patient/Family is in agreement with the milli n. Primary caregiver is in agreement with the plan. - Patient/Family Goals Return home independently. - Planned Living Setting Upon Discharge Home, to live with Family/Relatives. Transitional Living. CONCLUSION ON REHABILITATION NECESSITY: I have evaluated patient's pre-admission functional status and, comparing it to the patient's post-ad mission functional status now, I conclude that the pre-admission assessment was accurate. Patient's c ondition on admission supports the medical necessity of admission to [facility]. It is safe to proceed with patient's therapy program. SIGNATURE PANEL: (EMERGENCY PLANNING AND RESPONSE MANAGER)
[2020-02-15] MEDS: CRANBERRY FRUIT EXTRACT 200 MG CAP PO SCH (19:37)
[2020-02-16 06:02] LABS: Absolute Lymphocytes (CBC) 2.1 K/uL (0.7-4.9); Basophils % 1.3 % (0-1.3); Hematocrit 34.2 % (36.0-45.0); Lymphocytes % 26.2 % (15.3-44.8); MPV 6.5 fL (7.6-11.3); RBC Red Blood Cell Count 3.79 M/uL (3.86-4.86)
[2020-02-16 06:25] LABS: Albumin 2.8 g/dL (3.4-5.0); Magnesium 1.9 mg/dL (1.8-2.4); Potassium 3.6 mmol/L (3.5-5.1); Prealbumin 17.1 mg/dL (20-40)
[2020-02-16] MEDS: ACETAMINOPHEN 500 MG TAB PO PRN (06:51)
[2020-02-16] MEDS: LOPERAMIDE HCL 2 MG CAPSULE PO PRN ×3 (07:08→17:42)
[2020-02-16] MEDS: INSULIN -REGULAR HUMAN 50 UNIT/0.5 ML ML SQ SCH ×4 (07:30→21:45)
[2020-02-16] MEDS: ENOXAPARIN 30 MG/0.3 ML SQ SCH (08:00)
[2020-02-16 08:22] LABS: Blood Morphology Comment NOTED (NOT SEEN); Platelet Estimate ADEQ; White Blood Cell Scan OK (OK)
[2020-02-16] MEDS: CRANBERRY FRUIT EXTRACT 200 MG CAP PO SCH ×2 (08:34→20:15)
[2020-02-16] MEDS: METOPROLOL TAR 50 MG TAB PO SCH ×2 (08:34→20:15)
[2020-02-16] MEDS: ASPIRIN 81 MG CHEWABLE TABLET PO SCH (08:35)
[2020-02-16] MEDS: CALCIUM CARBONATE 500 MG TAB PO SCH ×2 (08:35→20:16)
[2020-02-16] MEDS: INSULIN GLARGINE 100 UNITS/ML SQ SCH (08:36)
--- NOTE | 2020-02-16 16:07 | FAST ---
[employer]ITY [employer] FORM SHIFT START DATE/TIME: 02/16/2020 07:00 (DICTAPHONE TRANSCRIBER) SHIFT END DATE/TIME: 02/16/2020 19:00 (DICTAPHONE TRANSCRIBER) NAME CHELY WAGNER DATE OF : 1940 DATE OF ADMISSION: 02/14/2020 17:15 (DICTAPHONE TRANSCRIBER) PHONE: AGE: 79 N# [id number] GENDER: Female ENCOUNTER PHYSICIAN: Dr. Asim Sanchez M.D. 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 EATING: EATING - STEP 1: Does the patient complete the activity by him/herself with no assistance (physical, verbal/nonverbal cueing, setup/clean-up)? No. EATING - STEP 2: Does the patient need only setup/clean-up assistance from one helper? Yes. 1. [id number] ADMISSION PERFORMANCE: Setup or clean-up assistance CODE: 05 ORAL HYGIENE: ORAL HYGIENE - STEP 1: Does the patient complete the activity by him/herself with no assistance (physical, verbal/nonverbal cueing, setup/clean-up)? No. ORAL HYGIENE - STEP 2: Does the patient need only setup/clean-up assistance from one helper? Yes. 1. [id number] ADMISSION PERFORMANCE: Setup or clean-up assistance CODE: 05 TOILETING HYGIENE: TOILETING HYGIENE - STEP 1: Does the patient complete the activity by him/herself with no assistance (physical, verbal/nonverbal cueing, setup/clean-up)? No. TOILETING HYGIENE - STEP 2: Does the patient need only setup/clean-up assistance from one helper? Yes. 1. [id number] ADMISSION PERFORMANCE: Setup or clean-up assistance CODE: 05 BATHING: Not assessed/no information CODE: - DRESSING - UPPER BODY: DRESSING - UPPER BODY - STEP 1: Does the patient complete the activity by him/herself with no assistance (physical, verbal/nonverbal cueing, setup/clean-up)? No. DRESSING - UPPER BODY - STEP 2: Does the patient need only setup/clean-up assistance from one helper? Yes. 1. [id number] ADMISSION PERFORMANCE: Setup or clean-up assistance CODE: 05 DRESSING - LOWER BODY: DRESSING - LOWER BODY - STEP 1: Does the patient complete the activity by him/herself with no assistance (physical, verbal/nonverbal cueing, setup/clean-up)? No. DRESSING - LOWER BODY - STEP 2: Does the patient need only setup/clean-up assistance from one helper? Yes. 1. [id number] ADMISSION PERFORMANCE: Setup or clean-up assistance CODE: 05 PUTTING ON/TAKING OFF FOOTWEAR: FOOTWEAR - STEP 1: Does the patient complete the activity by him/herself with no assistance (physical, verbal/nonverbal cueing, setup/clean-up)? No. FOOTWEAR - STEP 2: Does the patient need only setup/clean-up assistance from one helper? Yes. 1. [id number] ADMISSION PERFORMANCE: Setup or clean-up assistance CODE: 05 ROLL LEFT AND RIGHT: ROLL LEFT AND RIGHT - STEP 1: Does the patient complete the activity by him/herself with no assistance (physical, verbal/nonverbal cueing, setup/clean-up)? No. ROLL LEFT AND RIGHT - STEP 2: Does the patient need only setup/clean-up assistance from one helper? Yes. 1. [id number] ADMISSION PERFORMANCE: Setup or clean-up assistance CODE: 05 SIT TO LYING: SIT TO LYING - STEP 1: Does the patient complete the activity by him/herself with no assistance (physical, verbal/nonverbal cueing, setup/clean-up)? No. SIT TO LYING - STEP 2: Does the patient need only setup/clean-up assistance from one helper? Yes. 1. [id number] ADMISSION PERFORMANCE: Setup or clean-up assistance CODE: 05 LYING TO SITTING: LYING TO SITTING ON SIDE OF BED - STEP 1: Does the patient complete the activity by him/herself with no assistance (physical, verbal/nonverbal cueing, setup/clean-up)? No. LYING TO SITTING ON SIDE OF BED - STEP 2: Does the patient need only setup/clean-up assistance from one helper? Yes. 1. [id number] ADMISSION PERFORMANCE: Setup or clean-up assistance CODE: 05 SIT TO STAND: SIT TO STAND - STEP 1: Does the patient complete the activity by him/herself with no assistance (physical, verbal/nonverbal cueing, setup/clean-up)? No. SIT TO STAND - STEP 2: Does the patient need only setup/clean-up assistance from one helper? Yes. 1. [id number] ADMISSION PERFORMANCE: Setup or clean-up assistance CODE: 05 TRANSFERS: BED, CHAIR: [id number] TRANSFER - STEP 1: Does the patient complete the activity by him/herself with no assistance (physical, verbal/nonverbal cueing, setup/clean-up)? No. CHAIR/[id number] TRANSFER - STEP 2: Does the patient need only setup/clean-up assistance from one helper? Yes. 1. [id number] ADMISSION PERFORMANCE: Setup or clean-up assistance CODE: 05 TRANSFER TOILET: TOILET TRANSFER - STEP 1: Does the patient complete the activity by him/herself with no assistance (physical, verbal/nonverbal cueing, setup/clean-up)? No. TOILET TRANSFER - STEP 2: Does the patient need only setup/clean-up assistance from one helper? Yes. 1. [id number] ADMISSION PERFORMANCE: Setup or clean-up assistance CODE: 05 TRANSFERS: CAR: Not assessed/no information CODE: - WALK 10 FEET: Not assessed/no information CODE: - 1 STEP (CURB): Not assessed/no information CODE: - PICKING UP OBJECT: Not assessed/no information CODE: - DOES THE PATIENT USE A WHEELCHAIR/SCOOTER? Q1. DOES THE PATIENT USE A WHEELCHAIR/SCOOTER?: Yes CODE: 1 WHEEL 50 FEET WITH TWO TURNS: WHEEL 50 FEET WITH TWO TURNS - STEP 1: Does the patient complete the activity by him/herself with no assistance (physical, verbal/nonverbal cueing, setup/clean-up)? No. WHEEL 50 FEET WITH TWO TURNS - STEP 2: Does the patient need only setup/clean-up assistance from one helper? Yes. 1. [id number] ADMISSION PERFORMANCE: Setup or clean-up assistance CODE: 05 INDICATE THE TYPE OF WHEELCHAIR/SCOOTER USED: RR1. INDICATE THE TYPE OF WHEELCHAIR/SCOOTER USED.: Manual CODE: 1 WHEEL 150 FEET: Not assessed/no information CODE: - INDICATE THE TYPE OF WHEELCHAIR/SCOOTER USED: SS1. INDICATE THE TYPE OF WHEELCHAIR/SCOOTER USED.: Manual CODE: 1 BLADDER AND BOWEL: H350. BLADDER CONTINENCE (3-DAY ASSESSMENT PERIOD): Always continent (no documented incontinence) CODE: 0 H400. BOWEL CONTINENCE (3-DAY ASSESSMENT PERIOD): Always continent CODE: 0 SIGNATURE PANEL: The following modified sections: 1. [id number] Admission Performance, 1. [id number] Admission Performance, 1. [id number] Admission Performance, 1. [id number] Admission Performance, 1. RG9263c Admission Performance, 1. [id number] Admission Performance, 1. [id number] Admission Performance, 1. [id number] Admission Performance , 1. [id number] Admission Performance, 1. [id number] Admission Performance, 1. [id number] Admission Performanc e, 1. [id number] Admission Performance, Q1. Does the patient use a wheelchair/scooter?, 1. [id number] Admis leah Performance, RR1. Indicate the type of wheelchair/scooter used., Code, SS1. Indicate the type of wheelchair/scooter used., H350. Bladder Continence (3-day assessment period), H400. Bowel Continence (3-day assessment period) were [electronically] signed by Mari BarriosN.Pedrito on ThuFeb 16 2020 16 :07:01 [facility]-0600 (Central Standard Time)
--- NOTE | 2020-02-16 17:38 | R.PN ---
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 Pt denied any Shortness of Breath. WBC 8.2, Hgb 11.7, prealbumin 17.1, glucose 136 to 208. Ambulated 1250' with standby assistance using a rolling walker. Up and down 15 steps with standby ass istance. VITAL SIGNS Temperature: 97.8 F SBP/DBP: 136/65 Pulse: 74 Resp: 16 MEDICATION ALLERGIES: No Known Drug Allergies (NKDA) ENVIRONMENTAL ALLERGIES: - Substance Allergies None Known - Other Allergies None Known NURSING: - Shower allowing shower - Bladder care per protocol - Skin care per protocol ACTIVITIES OOB only with supervision THERAPIES: - Orthotics/Prosthetics Orthotic Evaluation. Splinting/Casting. - Dietary and Nutrition Adequate Nutrition. Nutritional Education. Nutritional Supplements. PHYSICAL EXAM - Gen Alert and awake Lying in bed No apparent distress Oriented to: person, time, and place - Skin No skin breakdown. No abnormalities - Eyes No abnormalities - ENMT No abnormalities - Neck No abnormalities - CVS RRR - Chest No abnormalities - Resp Clear to auscultation - Abd Soft - GI Soft No abnormalities - No abnormalities - Ext No significant edema - MSK Unremarkable - Neuro No focal deficits - Psych No abnormalities ASSESSMENT: Pt. 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 was independent/mod-I in L ocomotion, Balance, Safety Awareness, Transfers Control, and Self-Care; and she had good Endurance an d Communication.Currently, she has deficits of Locomotion, Balance, Sphincter Control, and Self-Care. Pt. is now referred to [facility] for acute in-patient rehabilitation in order to maximize patient's functional independence in activities of daily living, strength, ROM, and mobi lity.- Rehab Goal Patient has realistic goal of being discharged at assistance level 7-Ind to reside at Home with Fami ly/Relatives. MDM/PLAN: - Physical Therapy Gait dysfunction - to improve, our physical therapists will perform initial evaluation of pt's statu s upon admission and devise an individualized program for Gait Training, and Wheel Chair mobility Need for home safety evaluation - to improve, our physical therapists will perform initial evaluatio n of pt's status upon admission and devise an individualized program for Home Evaluation Need in caregiver upon discharge - to improve, our physical therapists will perform initial evaluati on of pt's status upon admission and devise an individualized program for Caregiver Training New precaution - to improve, our physical therapists will perform initial evaluation of pt's status upon admission and devise an individualized program for Patient precaution education Edema - to improve, our physical therapists will perform initial evaluation of pt's status upon admis leah and devise an individualized program for Elevation Training, and Lymphedema Therapy Poor balance - to improve, our physical therapists will perform initial evaluation of pt's status up on admission and devise an individualized program for Balance Training Weakness - to improve, our physical therapists will perform initial evaluation of pt's status upon a dmission and devise an individualized program for Aquatic Therapy, Neuromuscular Reeducation, and Str engthening Achieving independence - to improve, our physical therapists will perform initial evaluation of pt's status upon admission and devise an individualized program for Community Reintegration Activities - Occupational Therapy ADL deficits - to improve, our occupation therapists will perform initial evaluation of pt's status upon admission and devise an individualized program for Bathing, Bed mobility, Community Reintegratio n, Cooking, Dressing, Eating, Fine Motor Skills, Grooming, Homemaking, Kitchen Mobility, Laundry, Pat ient Education, Safety Awareness, Splinting - Positioning, Transfers(Toilet, Tub, Shower), and Wheel Chair Management Need for post acute care nurse practitioner - to improve, our occupation therapists will perform initial evaluation of pt's status upon admission and devise an individualized program for Caregiver Training Weakness - to improve, our occupation therapists will perform initial evaluation of pt's status upon admission and devise an individualized program for Aquatic Therapy, Balance, Endurance, UE ROM, and UE strengthening - Other See attached MAR (Medication Administration Record) - Diet Type Continue Regular - Diet - Liquid Texture Continue Regular - Tube Feed Continue N/A - Bladder care per protocol - Skin care per protocol - Diet - Solid Texture Continue Regular - Shower allowing shower FUNCTIONAL STATUS: UPDATED AT WEEKLY TEAM CONFERENCE - Bladder Same accident frequency: 7-Ind - No accidents in the past 7 days - Bowel Same accident frequency: 7-Ind - No accidents in the past 7 days - Walking Same score based on distance walked: 0(N/A) Same score based on distance walked: 3(>=150ft) - Wheelchair Same score based on distance traveled: 0(N/A) FUNCTIONAL STATUS: - Self-Care A. Eating Ind B. Grooming Jitendra C. Bathing sup D. Dressing - Upper Danielle E. Dressing - Lower Danielle F. Toileting sup - Sphincter Control G. Bladder control Jitendra H. Bowel control Jitendra - Transfers Control I. Bed/Chair/Wheelchair sup J. Toilet sup K. Tub/Shower Danielle - Locomotion L. Walk/Wheelchair (B) Danielle M. Stairs Danielle - Communication N. Comprehension (B) Jitendra O. Expression (B) Jitendra - Social Cognition P. Social Interaction Jitendra Q. Problem Solving Jitendra R. Memory Jitendra - Endurance Good - Balance Good - Safety Awareness Good QI SCORES: - Self-Care A. Eating 03-Partial/moderate assistance B. Oral hygiene 03-Partial/moderate assistance C. Toileting hygiene 88-Not attempted due to medical condition or safety concerns E. Shower/bathe self 03-Partial/moderate assistance F. Upper body dressing 02-Substantial/maximal assistance G. Lower body dressing 02-Substantial/maximal assistance - Mobility A. Roll left and right 03-Partial/moderate assistance B. Sit to lying 03-Partial/moderate assistance C. Lying to sitting on side of bed 03-Partial/moderate assistance D. Sit to stand 02-Substantial/maximal assistance E. Chair/[id number] transfer 02-Substantial/maximal assistance F. Toilet transfer 03-Partial/moderate assistance G. Car transfer 03-Partial/moderate assistance I. Walk 10 feet 03-Partial/moderate assistance J. Walk 50 feet with two turns 03-Partial/moderate assistance K. Walk 150 feet 03-Partial/moderate assistance L. Walking 10 feet on uneven surfaces 88-Not attempted due to medical condition or safety concerns M. 1 step (curb) 88-Not attempted due to medical condition or safety concerns N. 4 steps 88-Not attempted due to medical condition or safety concerns O. 12 steps 88-Not attempted due to medical condition or safety concerns P. Picking up object 88-Not attempted due to medical condition or safety concerns R. Wheel 50 feet with two turns 88-Not attempted due to medical condition or safety concerns S. Wheel 150 feet 88-Not attempted due to medical condition or safety concerns - Bladder and Bowel Bladder continence Bowel continence - Endurance Fair - Balance Fair - Safety Awareness Fair CURRENT [facility]. 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
[2020-02-16] MEDS: ENOXAPARIN 40 MG/0.4 ML SQ SCH (20:16)
[2020-02-17] MEDS: INSULIN -REGULAR HUMAN 50 UNIT/0.5 ML ML SQ SCH ×4 (07:11→20:51)
[2020-02-17] MEDS: ASPIRIN 81 MG CHEWABLE TABLET PO SCH (07:50)
[2020-02-17] MEDS: CRANBERRY FRUIT EXTRACT 200 MG CAP PO SCH ×2 (07:50→20:50)
[2020-02-17] MEDS: CALCIUM CARBONATE 500 MG TAB PO SCH ×2 (07:50→20:49)
[2020-02-17] MEDS: INSULIN GLARGINE 100 UNITS/ML SQ SCH (07:51)
[2020-02-17] MEDS: METOPROLOL TAR 50 MG TAB PO SCH ×2 (07:51→20:49)
[2020-02-17] MEDS: TRAMADOL HCL 50 MG TAB PO PRN (08:19)
[2020-02-17] MEDS: LOPERAMIDE HCL 2 MG CAPSULE PO PRN (08:25)
--- NOTE | 2020-02-17 09:53 | P.RH.PN ---
Estimated Length of Stay: 12 Expected Discharge Date: 02/26/20 Discharge Disposition Plan: Home Family Support: Yes Correction Goal: Mobility, Transfers, Self Care Vital Signs: Last Vital Signs Temp 98 F 02/17/20 07:54 Pulse 66 02/17/20 07:54 Resp 18 02/17/20 08:19 BP 126/63 02/17/20 07:54 Pulse Ox 96 02/17/20 08:19 Laboratory: Laboratory Last Values WBC 8.2 K/uL (4.3-10.9) 02/16/20 05:41 RBC 3.79 M/uL (3.86-4.86) L 02/16/20 05:41 Hgb 11.7 g/dL (12.0-15.0) L 02/16/20 05:41 Hct 34.2 % (36.0-45.0) L 02/16/20 05:41 MCV 90.3 fL (80-100) 02/16/20 05:41 MCH 30.8 pg (27.0-35.0) 02/16/20 05:41 MCHC 34.1 g/dL (32.0-36.0) 02/16/20 05:41 RDW 14.2 % (12.1-15.2) 02/16/20 05:41 Plt Count 317 K/uL (152-406) 02/16/20 05:41 MPV 6.5 fL (7.6-11.3) L 02/16/20 05:41 Neutrophils % 58.8 % (41.7-73.7) 02/16/20 05:41 Lymphocytes % 26.2 % (15.3-44.8) 02/16/20 05:41 Monocytes % 10.2 % (3.3-12.3) 02/16/20 05:41 Eosinophils % 3.5 % (0-4.4) 02/16/20 05:41 Basophils % 1.3 % (0-1.3) 02/16/20 05:41 Absolute Neutrophils 4.8 K/uL (1.8-8.0) 02/16/20 05:41 Absolute Lymphocytes 2.1 K/uL (0.7-4.9) 02/16/20 05:41 Absolute Monocytes 0.8 K/uL (0.1-1.3) 02/16/20 05:41 Absolute Eosinophils 0.3 K/uL (0-0.5) 02/16/20 05:41 Absolute Basophils 0.1 K/uL (0-0.5) 02/16/20 05:41 Platelet Estimate Adeq 02/16/20 05:41 Morphology Comment Noted (NOT SEEN) 02/16/20 05:41 Sodium 140 mmol/L (136-145) 02/16/20 05:41 Potassium 3.6 mmol/L (3.5-5.1) 02/16/20 05:41 Chloride 105 mmol/L (98-107) 02/16/20 05:41 Carbon Dioxide 26 mmol/L (21-32) 02/16/20 05:41 BUN 12 mg/dL (7-18) 02/16/20 05:41 Creatinine 0.70 mg/dL (0.55-1.3) 02/16/20 05:41 Estimated GFR 81 mL/min (=/>90) L 02/16/20 05:41 Glucose 148 mg/dL (74-106) H 02/16/20 05:41 POC Glucose 153 mg/dL (65-120) H 02/17/20 06:58 Calcium 8.8 mg/dL (8.5-10.1) 02/16/20 05:41 Magnesium 1.9 mg/dL (1.8-2.4) 02/16/20 05:41 Albumin 2.8 g/dL (3.4-5.0) L 02/16/20 05:41 Prealbumin 17.1 mg/dL (20-40) L 02/16/20 05:41 Urine Color Yellow 02/14/20 20:20 Urine Appearance Cloudy 02/14/20 20:20 Urine pH 5.5 (5.0-7.0) 02/14/20 20:20 Ur Specific [place] 1.020 (1.005-1.030) 02/14/20 20:20 Glucose (UA)(Auto) Trace (NEG) 02/14/20 20:20 Urine Ketones 2+ (NEG) H 02/14/20 20:20 Urine Blood Negative (NEG) 02/14/20 20:20 Urine Nitrite Negative (NEG) 02/14/20 20:20 Urine Bilirubin Negative (NEG) 02/14/20 20:20 Urine Urobilinogen 0.2 mg/dL (0.2-1.0) 02/14/20 20:20 Ur Leukocyte Esterase 1+ (NEG) H 02/14/20 20:20 Urine RBC <5 /HPF (NONE SEEN) 02/14/20 20:20 Urine WBC 5-10 /HPF (<5) H 02/14/20 20:20 Ur Squamous Epith Cells 5-10 /HPF (NONE SEEN) H 02/14/20 20:20 Urine Bacteria <20 /HPF (<20) 02/14/20 20:20 Urine Yeast Present (NONE SEEN) H 02/14/20 20:20 Urine Culture Reflexed Not needed 02/14/20 20:20 Urine Total Protein Negative (NEG) 02/14/20 20:20 SARS-CoV-2 RNA (RT-PCR) Negative (NEGATIVE) 02/14/20 17:49 Smear Scan Ok (OK) 02/16/20 05:41 Weight: 180 lb Wound Present: No Closed Surgical Incision Present: Yes Negative Pressure Wound Therapy Present: No Physician Update: Labs reviewed and are stable. She is doing well with physical and occupational therapy. Her neck pain is improving. Comment: S/P Laminectomy. Posterior Spinal fusion. Hematoma evacuation. 02/14 dressing changed. Functional Improvement: Patient presents w/ very good work ethic and follows instructions very well. Patient is currently SBA w/ transfers and gait tx. Summary: Patient's care plan and senior care goals have been reviewed and revised as necessary. Please see the Rehabilitation Signature page for all necessary signatures.
[2020-02-17] MEDS: ENOXAPARIN 40 MG/0.4 ML SQ SCH (20:50)
[2020-02-18 05:30] VITALS: BMI 28.5
[2020-02-18] MEDS: INSULIN -REGULAR HUMAN 50 UNIT/0.5 ML ML SQ SCH ×4 (07:30→20:20)
[2020-02-18] MEDS: CRANBERRY FRUIT EXTRACT 200 MG CAP PO SCH ×2 (08:33→20:20)
[2020-02-18] MEDS: METOPROLOL TAR 50 MG TAB PO SCH ×2 (08:33→20:19)
[2020-02-18] MEDS: ACETAMINOPHEN 500 MG TAB PO PRN (08:34)
[2020-02-18] MEDS: CALCIUM CARBONATE 500 MG TAB PO SCH ×2 (08:34→20:19)
[2020-02-18] MEDS: ASPIRIN 81 MG CHEWABLE TABLET PO SCH (08:34)
[2020-02-18] MEDS: INSULIN GLARGINE 100 UNITS/ML SQ SCH (08:35)
[2020-02-18] MEDS: LOPERAMIDE HCL 2 MG CAPSULE PO PRN (13:38)
[2020-02-18] MEDS: METFORMIN HCL 500 MG TAB PO SCH (16:50)
--- NOTE | 2020-02-18 19:27 | R.PN ---
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 Pt denied any Shortness of Breath. WBC 8.2, Hgb 11.7, prealbumin 17.1, glucose 155 to 198. Ambulated 1000' with standby assistance using a rolling walker. Self propelled wheelchair 1000' with minimum assistance. VITAL SIGNS Temperature: 98.0 F SBP/DBP: 132/63 Pulse: 72 Resp: 16 MEDICATION ALLERGIES: No Known Drug Allergies (NKDA) ENVIRONMENTAL ALLERGIES: - Substance Allergies None Known - Other Allergies None Known NURSING: - Shower allowing shower - Bladder care per protocol - Skin care per protocol ACTIVITIES OOB only with supervision THERAPIES: - Orthotics/Prosthetics Orthotic Evaluation. Splinting/Casting. - Dietary and Nutrition Adequate Nutrition. Nutritional Education. Nutritional Supplements. PHYSICAL EXAM - Gen Alert and awake Lying in bed No apparent distress Oriented to: person, time, and place - Skin No skin breakdown. No abnormalities - Eyes No abnormalities - ENMT No abnormalities - Neck No abnormalities - CVS RRR - Chest No abnormalities - Resp Clear to auscultation - Abd Soft - GI Soft No abnormalities - No abnormalities - Ext No significant edema - MSK Unremarkable - Neuro No focal deficits - Psych No abnormalities ASSESSMENT: Pt. 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 was independent/mod-I in L ocomotion, Balance, Safety Awareness, Transfers Control, and Self-Care; and she had good Endurance an d Communication.Currently, she has deficits of Locomotion, Balance, Sphincter Control, and Self-Care. Pt. is now referred to [facility] for acute in-patient rehabilitation in order to maximize patient's functional independence in activities of daily living, strength, ROM, and mobi lity.- Rehab Goal Patient has realistic goal of being discharged at assistance level 7-Ind to reside at Home with Fami ly/Relatives. MDM/PLAN: - Physical Therapy Gait dysfunction - to improve, our physical therapists will perform initial evaluation of pt's statu s upon admission and devise an individualized program for Gait Training, and Wheel Chair mobility Need for home safety evaluation - to improve, our physical therapists will perform initial evaluatio n of pt's status upon admission and devise an individualized program for Home Evaluation Need in caregiver upon discharge - to improve, our physical therapists will perform initial evaluati on of pt's status upon admission and devise an individualized program for Caregiver Training New precaution - to improve, our physical therapists will perform initial evaluation of pt's status upon admission and devise an individualized program for Patient precaution education Edema - to improve, our physical therapists will perform initial evaluation of pt's status upon admi ssion and devise an individualized program for Elevation Training, and Lymphedema Therapy Poor balance - to improve, our physical therapists will perform initial evaluation of pt's status up on admission and devise an individualized program for Balance Training Weakness - to improve, our physical therapists will perform initial evaluation of pt's status upon a dmission and devise an individualized program for Aquatic Therapy, Neuromuscular Reeducation, and Str engthening Achieving independence - to improve, our physical therapists will perform initial evaluation of pt's status upon admission and devise an individualized program for Community Reintegration Activities - Occupational Therapy ADL deficits - to improve, our occupation therapists will perform initial evaluation of pt's status upon admission and devise an individualized program for Bathing, Bed mobility, Community Reintegratio n, Cooking, Dressing, Eating, Fine Motor Skills, Grooming, Homemaking, Kitchen Mobility, Laundry, Pat ient Education, Safety Awareness, Splinting - Positioning, Transfers(Toilet, Tub, Shower), and Wheel Chair Management Need for memory care program director - to improve, our occupation therapists will perform initial evaluation of pt's status upon admission and devise an individualized program for Caregiver Training Weakness - to improve, our occupation therapists will perform initial evaluation of pt's status upon admission and devise an individualized program for Aquatic Therapy, Balance, Endurance, UE ROM, and UE strengthening - Other See attached MAR (Medication Administration Record) - Diet Type Continue Regular - Diet - Liquid Texture Continue Regular - Tube Feed Continue N/A - Bladder care per protocol - Skin care per protocol - Diet - Solid Texture Continue Regular - Shower allowing shower FUNCTIONAL STATUS: UPDATED AT WEEKLY TEAM CONFERENCE - Bladder Same accident frequency: 7-Ind - No accidents in the past 7 days - Bowel Same accident frequency: 7-Ind - No accidents in the past 7 days - Walking Same score based on distance walked: 0(N/A) Same score based on distance walked: 3(>=150ft) - Wheelchair Same score based on distance traveled: 0(N/A) FUNCTIONAL STATUS: - Self-Care A. Eating Ind B. Grooming Jitendra C. Bathing sup D. Dressing - Upper Danielle E. Dressing - Lower Danielle F. Toileting sup - Sphincter Control G. Bladder control Jitendra H. Bowel control Jitendra - Transfers Control I. Bed/Chair/Wheelchair sup J. Toilet sup K. Tub/Shower Danielle - Locomotion L. Walk/Wheelchair (B) Danielle M. Stairs Danielle - Communication N. Comprehension (B) Jitendra O. Expression (B) Jitendra - Social Cognition P. Social Interaction Jitendra Q. Problem Solving Jitendra R. Memory Jitendra - Endurance Good - Balance Good - Safety Awareness Good QI SCORES: - Self-Care A. Eating 03-Partial/moderate assistance B. Oral hygiene 03-Partial/moderate assistance C. Toileting hygiene 88-Not attempted due to medical condition or safety concerns E. Shower/bathe self 03-Partial/moderate assistance F. Upper body dressing 02-Substantial/maximal assistance G. Lower body dressing 02-Substantial/maximal assistance - Mobility A. Roll left and right 03-Partial/moderate assistance B. Sit to lying 03-Partial/moderate assistance C. Lying to sitting on side of bed 03-Partial/moderate assistance D. Sit to stand 02-Substantial/maximal assistance E. Chair/[id number] transfer 02-Substantial/maximal assistance F. Toilet transfer 03-Partial/moderate assistance G. Car transfer 03-Partial/moderate assistance I. Walk 10 feet 03-Partial/moderate assistance J. Walk 50 feet with two turns 03-Partial/moderate assistance K. Walk 150 feet 03-Partial/moderate assistance L. Walking 10 feet on uneven surfaces 88-Not attempted due to medical condition or safety concerns M. 1 step (curb) 88-Not attempted due to medical condition or safety concerns N. 4 steps 88-Not attempted due to medical condition or safety concerns O. 12 steps 88-Not attempted due to medical condition or safety concerns P. Picking up object 88-Not attempted due to medical condition or safety concerns R. Wheel 50 feet with two turns 88-Not attempted due to medical condition or safety concerns S. Wheel 150 feet 88-Not attempted due to medical condition or safety concerns - Bladder and Bowel Bladder continence Bowel continence - Endurance Fair - Balance Fair - Safety Awareness Fair CURRENT [facility]. 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
[2020-02-18] MEDS: ENOXAPARIN 40 MG/0.4 ML SQ SCH (20:20)
[2020-02-19] MEDS: INSULIN -REGULAR HUMAN 50 UNIT/0.5 ML ML SQ SCH ×4 (07:24→19:42)
[2020-02-19] MEDS: CRANBERRY FRUIT EXTRACT 200 MG CAP PO SCH ×2 (08:43→19:42)
[2020-02-19] MEDS: CALCIUM CARBONATE 500 MG TAB PO SCH ×2 (08:43→19:42)
[2020-02-19] MEDS: METOPROLOL TAR 50 MG TAB PO SCH ×2 (08:43→19:42)
[2020-02-19] MEDS: ACETAMINOPHEN 500 MG TAB PO PRN (08:44)
[2020-02-19] MEDS: METFORMIN HCL 500 MG TAB PO SCH ×2 (08:44→17:04)
[2020-02-19] MEDS: ASPIRIN 81 MG CHEWABLE TABLET PO SCH (08:44)
[2020-02-19] MEDS: INSULIN GLARGINE 100 UNITS/ML SQ SCH (08:44)
[2020-02-19] MEDS: LOPERAMIDE HCL 2 MG CAPSULE PO PRN (10:46)
[2020-02-19] MEDS: ENOXAPARIN 40 MG/0.4 ML SQ SCH (19:42)
[2020-02-20] MEDS: TRAMADOL HCL 50 MG TAB PO PRN ×2 (02:05→08:07)
[2020-02-20] MEDS: INSULIN -REGULAR HUMAN 50 UNIT/0.5 ML ML SQ SCH ×4 (07:10→20:34)
[2020-02-20] MEDS: CALCIUM CARBONATE 500 MG TAB PO SCH ×2 (08:08→20:34)
[2020-02-20] MEDS: INSULIN GLARGINE 100 UNITS/ML SQ SCH (08:08)
[2020-02-20] MEDS: METOPROLOL TAR 50 MG TAB PO SCH ×2 (08:08→20:34)
[2020-02-20] MEDS: ASPIRIN 81 MG CHEWABLE TABLET PO SCH (08:09)
[2020-02-20] MEDS: METFORMIN HCL 500 MG TAB PO SCH ×2 (08:09→16:56)
[2020-02-20] MEDS: CRANBERRY FRUIT EXTRACT 200 MG CAP PO SCH ×2 (08:09→20:33)
[2020-02-20] MEDS: LOPERAMIDE HCL 2 MG CAPSULE PO PRN (13:05)
[2020-02-20] MEDS: ENOXAPARIN 40 MG/0.4 ML SQ SCH (20:34)
[2020-02-20] MEDS: MELATONIN 3 MG TABLET PO PRN (20:35)
[2020-02-21] MEDS: INSULIN -REGULAR HUMAN 50 UNIT/0.5 ML ML SQ SCH ×4 (07:12→20:48)
[2020-02-21] MEDS: INSULIN GLARGINE 100 UNITS/ML SQ SCH (08:03)
[2020-02-21] MEDS: METOPROLOL TAR 50 MG TAB PO SCH ×2 (08:04→20:47)
[2020-02-21] MEDS: ASPIRIN 81 MG CHEWABLE TABLET PO SCH (08:04)
[2020-02-21] MEDS: CALCIUM CARBONATE 500 MG TAB PO SCH ×2 (08:04→20:47)
[2020-02-21] MEDS: METFORMIN HCL 500 MG TAB PO SCH ×2 (08:05→17:11)
[2020-02-21] MEDS: CRANBERRY FRUIT EXTRACT 200 MG CAP PO SCH ×2 (08:05→20:46)
--- NOTE | 2020-02-21 10:49 | FAST ---
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 Asim Sanchez M.D. 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 EATING: EATING - STEP 1: Does the patient complete the activity by him/herself with no assistance (physical, verbal/nonverbal cueing, setup/clean-up)? No. EATING - STEP 2: Does the patient need only setup/clean-up assistance from one helper? Yes. 1. [id number] ADMISSION PERFORMANCE: Setup or clean-up assistance CODE: 05 ORAL HYGIENE: ORAL HYGIENE - STEP 1: Does the patient complete the activity by him/herself with no assistance (physical, verbal/nonverbal cueing, setup/clean-up)? No. ORAL HYGIENE - STEP 2: Does the patient need only setup/clean-up assistance from one helper? Yes. 1. [id number] ADMISSION PERFORMANCE: Setup or clean-up assistance CODE: 05 TOILETING HYGIENE: TOILETING HYGIENE - STEP 1: Does the patient complete the activity by him/herself with no assistance (physical, verbal/nonverbal cueing, setup/clean-up)? No. TOILETING HYGIENE - STEP 2: Does the patient need only setup/clean-up assistance from one helper? Yes. 1. [id number] ADMISSION PERFORMANCE: Setup or clean-up assistance CODE: 05 BATHING: Not assessed/no information CODE: - DRESSING - UPPER BODY: DRESSING - UPPER BODY - STEP 1: Does the patient complete the activity by him/herself with no assistance (physical, verbal/nonverbal cueing, setup/clean-up)? No. DRESSING - UPPER BODY - STEP 2: Does the patient need only setup/clean-up assistance from one helper? Yes. 1. [id number] ADMISSION PERFORMANCE: Setup or clean-up assistance CODE: 05 DRESSING - LOWER BODY: DRESSING - LOWER BODY - STEP 1: Does the patient complete the activity by him/herself with no assistance (physical, verbal/nonverbal cueing, setup/clean-up)? No. DRESSING - LOWER BODY - STEP 2: Does the patient need only setup/clean-up assistance from one helper? Yes. 1. [id number] ADMISSION PERFORMANCE: Setup or clean-up assistance CODE: 05 PUTTING ON/TAKING OFF FOOTWEAR: FOOTWEAR - STEP 1: Does the patient complete the activity by him/herself with no assistance (physical, verbal/nonverbal cueing, setup/clean-up)? No. FOOTWEAR - STEP 2: Does the patient need only setup/clean-up assistance from one helper? Yes. 1. [id number] ADMISSION PERFORMANCE: Setup or clean-up assistance CODE: 05 ROLL LEFT AND RIGHT: Not assessed/no information CODE: - SIT TO LYING: SIT TO LYING - STEP 1: Does the patient complete the activity by him/herself with no assistance (physical, verbal/nonverbal cueing, setup/clean-up)? No. SIT TO LYING - STEP 2: Does the patient need only setup/clean-up assistance from one helper? Yes. 1. [id number] ADMISSION PERFORMANCE: Setup or clean-up assistance CODE: 05 LYING TO SITTING: LYING TO SITTING ON SIDE OF BED - STEP 1: Does the patient complete the activity by him/herself with no assistance (physical, verbal/nonverbal cueing, setup/clean-up)? No. LYING TO SITTING ON SIDE OF BED - STEP 2: Does the patient need only setup/clean-up assistance from one helper? Yes. 1. [id number] ADMISSION PERFORMANCE: Setup or clean-up assistance CODE: 05 SIT TO STAND: SIT TO STAND - STEP 1: Does the patient complete the activity by him/herself with no assistance (physical, verbal/nonverbal cueing, setup/clean-up)? No. SIT TO STAND - STEP 2: Does the patient need only setup/clean-up assistance from one helper? Yes. 1. [id number] ADMISSION PERFORMANCE: Setup or clean-up assistance CODE: 05 TRANSFERS: BED, CHAIR: CHAIR/[id number] TRANSFER - STEP 1: Does the patient complete the activity by him/herself with no assistance (physical, verbal/nonverbal cueing, setup/clean-up)? No. CHAIR/[id number] TRANSFER - STEP 2: Does the patient need only setup/clean-up assistance from one helper? Yes. 1. [id number] ADMISSION PERFORMANCE: Setup or clean-up assistance CODE: 05 TRANSFER TOILET: TOILET TRANSFER - STEP 1: Does the patient complete the activity by him/herself with no assistance (physical, verbal/nonverbal cueing, setup/clean-up)? No. TOILET TRANSFER - STEP 2: Does the patient need only setup/clean-up assistance from one helper? Yes. 1. [id number] ADMISSION PERFORMANCE: Setup or clean-up assistance CODE: 05 TRANSFERS: CAR: Not assessed/no information CODE: - WALK 10 FEET: Not assessed/no information CODE: - 1 STEP (CURB): Not assessed/no information CODE: - PICKING UP OBJECT: Not assessed/no information CODE: - DOES THE PATIENT USE A WHEELCHAIR/SCOOTER? Q1. DOES THE PATIENT USE A WHEELCHAIR/SCOOTER?: No CODE: 0 INDICATE THE TYPE OF WHEELCHAIR/SCOOTER USED: CODE: EXPR INDICATE THE TYPE OF WHEELCHAIR/SCOOTER USED: CODE: EXPR BLADDER AND BOWEL: H350. BLADDER CONTINENCE (3-DAY ASSESSMENT PERIOD): Always continent (no documented incontinence) CODE: 0 H400. BOWEL CONTINENCE (3-DAY ASSESSMENT PERIOD): Always continent CODE: 0 SIGNATURE PANEL: The following modified sections: 1. [id number] Admission Performance, 1. [id number] Admission Performance, 1. [id number] Admission Performance, 1. [id number] Admission Performance, 1. [id number] Admission Performance, 1. [id number] Admission Performance, 1. [id number] Admission Performance, 1. [id number] Admission Performance , 1. [id number] Admission Performance, 1. [id number] Admission Performance, 1. [id number] Admission Performanc e, Q1. Does the patient use a wheelchair/scooter?, Q1. Does the patient use a wheelchair/scooter?, H3 50. Bladder Continence (3-day assessment period), H400. Bowel Continence (3-day assessment period) we re [electronically] signed by Mari BarriosNDianne on ThuFeb 21 2020 10:48:56 T-06 ([facility])
[2020-02-21] MEDS: LOPERAMIDE HCL 2 MG CAPSULE PO PRN ×2 (11:53→15:19)
[2020-02-21] MEDS ORDERED: MECLIZINE HCL 12.5 MG TAB PO PRN (14:43)
--- NOTE | 2020-02-21 17:57 | R.PN ---
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 Pt denied any Shortness of Breath. WBC 8.2, Hgb 11.7, prealbumin 17.1, glucose 125 to 155. Ambulated 1500' with standby assistance using a rolling walker. VITAL SIGNS Temperature: 98.0 F SBP/DBP: 115/64 Pulse: 68 Resp: 16 MEDICATION ALLERGIES: No Known Drug Allergies (NKDA) ENVIRONMENTAL ALLERGIES: - Substance Allergies None Known - Other Allergies None Known NURSING: - Shower allowing shower - Bladder care per protocol - Skin care per protocol ACTIVITIES OOB only with supervision THERAPIES: - Orthotics/Prosthetics Orthotic Evaluation. Splinting/Casting. - Dietary and Nutrition Adequate Nutrition. Nutritional Education. Nutritional Supplements. PHYSICAL EXAM - Gen Alert and awake Lying in bed No apparent distress Oriented to: person, time, and place - Skin No skin breakdown. No abnormalities - Eyes No abnormalities - ENMT No abnormalities - Neck No abnormalities - CVS RRR - Chest No abnormalities - Resp Clear to auscultation - Abd Soft - GI Soft No abnormalities - No abnormalities - Ext No significant edema - MSK Unremarkable - Neuro No focal deficits - Psych No abnormalities ASSESSMENT: Pt. 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 was independent/mod-I in L ocomotion, Balance, Safety Awareness, Transfers Control, and Self-Care; and she had good Endurance an d Communication.Currently, she has deficits of Locomotion, Balance, Sphincter Control, and Self-Care. Pt. is now referred to [facility] for acute in-patient rehabilitation in order to maximize patient's functional independence in activities of daily living, strength, ROM, and mobi lity.- Rehab Goal Patient has realistic goal of being discharged at assistance level 7-Ind to reside at Home with Fami ly/Relatives. MDM/PLAN: - Physical Therapy Gait dysfunction - to improve, our physical therapists will perform initial evaluation of pt's statu s upon admission and devise an individualized program for Gait Training, and Wheel Chair mobility Need for home safety evaluation - to improve, our physical therapists will perform initial evaluatio n of pt's status upon admission and devise an individualized program for Home Evaluation Need in caregiver upon discharge - to improve, our physical therapists will perform initial evaluati on of pt's status upon admission and devise an individualized program for Caregiver Training New precaution - to improve, our physical therapists will perform initial evaluation of pt's status upon admission and devise an individualized program for Patient precaution education Edema - to improve, our physical therapists will perform initial evaluation of pt's status upon admi ssion and devise an individualized program for Elevation Training, and Lymphedema Therapy Poor balance - to improve, our physical therapists will perform initial evaluation of pt's status up on admission and devise an individualized program for Balance Training Weakness - to improve, our physical therapists will perform initial evaluation of pt's status upon a dmission and devise an individualized program for Aquatic Therapy, Neuromuscular Reeducation, and Str engthening Achieving independence - to improve, our physical therapists will perform initial evaluation of pt's status upon admission and devise an individualized program for Community Reintegration Activities - Occupational Therapy ADL deficits - to improve, our occupation therapists will perform initial evaluation of pt's status upon admission and devise an individualized program for Bathing, Bed mobility, Community Reintegratio n, Cooking, Dressing, Eating, Fine Motor Skills, Grooming, Homemaking, Kitchen Mobility, Laundry, Pat ient Education, Safety Awareness, Splinting - Positioning, Transfers(Toilet, Tub, Shower), and Wheel Chair Management Need for day care center director - to improve, our occupation therapists will perform initial evaluation of pt's status upon admission and devise an individualized program for Caregiver Training Weakness - to improve, our occupation therapists will perform initial evaluation of pt's status upon admission and devise an individualized program for Aquatic Therapy, Balance, Endurance, UE ROM, and UE strengthening - Other See attached MAR (Medication Administration Record) - Diet Type Continue Regular - Diet - Liquid Texture Continue Regular - Tube Feed Continue N/A - Bladder care per protocol - Skin care per protocol - Diet - Solid Texture Continue Regular - Shower allowing shower FUNCTIONAL STATUS: UPDATED AT WEEKLY TEAM CONFERENCE - Bladder Same accident frequency: 7-Ind - No accidents in the past 7 days - Bowel Same accident frequency: 7-Ind - No accidents in the past 7 days - Walking Same score based on distance walked: 0(N/A) Same score based on distance walked: 3(>=150ft) - Wheelchair Same score based on distance traveled: 0(N/A) FUNCTIONAL STATUS: - Self-Care A. Eating Ind B. Grooming Jitendra C. Bathing sup D. Dressing - Upper Danielle E. Dressing - Lower Danielle F. Toileting sup - Sphincter Control G. Bladder control Jitendra H. Bowel control Jitendra - Transfers Control I. Bed/Chair/Wheelchair sup J. Toilet sup K. Tub/Shower Danielle - Locomotion L. Walk/Wheelchair (B) Danielle M. Stairs Danielle - Communication N. Comprehension (B) Jitendra O. Expression (B) Jitendra - Social Cognition P. Social Interaction Jitendra Q. Problem Solving Jitendra R. Memory Jitendra - Endurance Good - Balance Good - Safety Awareness Good QI SCORES: - Self-Care A. Eating 03-Partial/moderate assistance B. Oral hygiene 03-Partial/moderate assistance C. Toileting hygiene 88-Not attempted due to medical condition or safety concerns E. Shower/bathe self 03-Partial/moderate assistance F. Upper body dressing 02-Substantial/maximal assistance G. Lower body dressing 02-Substantial/maximal assistance - Mobility A. Roll left and right 03-Partial/moderate assistance B. Sit to lying 03-Partial/moderate assistance C. Lying to sitting on side of bed 03-Partial/moderate assistance D. Sit to stand 02-Substantial/maximal assistance E. Chair/ovt-pe-asbvm transfer 02-Substantial/maximal assistance F. Toilet transfer 03-Partial/moderate assistance G. Car transfer 03-Partial/moderate assistance I. Walk 10 feet 03-Partial/moderate assistance J. Walk 50 feet with two turns 03-Partial/moderate assistance K. Walk 150 feet 03-Partial/moderate assistance L. Walking 10 feet on uneven surfaces 88-Not attempted due to medical condition or safety concerns M. 1 step (curb) 88-Not attempted due to medical condition or safety concerns N. 4 steps 88-Not attempted due to medical condition or safety concerns O. 12 steps 88-Not attempted due to medical condition or safety concerns P. Picking up object 88-Not attempted due to medical condition or safety concerns R. Wheel 50 feet with two turns 88-Not attempted due to medical condition or safety concerns S. Wheel 150 feet 88-Not attempted due to medical condition or safety concerns - Bladder and Bowel Bladder continence Bowel continence - Endurance Fair - Balance Fair - Safety Awareness Fair [facility] 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
[2020-02-21] MEDS: MELATONIN 3 MG TABLET PO PRN (20:47)
[2020-02-21] MEDS: ENOXAPARIN 40 MG/0.4 ML SQ SCH (20:48)
[2020-02-22] MEDS: INSULIN -REGULAR HUMAN 50 UNIT/0.5 ML ML SQ SCH ×4 (07:30→20:17)
[2020-02-22] MEDS: CRANBERRY FRUIT EXTRACT 200 MG CAP PO SCH ×2 (08:12→20:17)
[2020-02-22] MEDS: ASPIRIN 81 MG CHEWABLE TABLET PO SCH (08:13)
[2020-02-22] MEDS: ACETAMINOPHEN 500 MG TAB PO PRN (08:13)
[2020-02-22] MEDS: METFORMIN HCL 500 MG TAB PO SCH ×2 (08:13→17:15)
[2020-02-22] MEDS: METOPROLOL TAR 50 MG TAB PO SCH ×2 (08:16→20:16)
[2020-02-22] MEDS: CALCIUM CARBONATE 500 MG TAB PO SCH ×2 (08:17→20:16)
[2020-02-22] MEDS: INSULIN GLARGINE 100 UNITS/ML SQ SCH (08:17)
[2020-02-22] MEDS ORDERED: ONDANSETRON 4 MG (ODT) TAB PO PRN (10:15)
[2020-02-22] MEDS ORDERED: ONDANSETRON 4 MG (ODT) TAB ONE (10:30)
[2020-02-22] MEDS: LOPERAMIDE HCL 2 MG CAPSULE PO PRN (14:44)
--- NOTE | 2020-02-22 18:10 | R.PN ---
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 Pt denied any Shortness of Breath. WBC 8.2, Hgb 11.7, prealbumin 17.1, glucose 105 to 158. Ambulated 1500' with standby assistance using a rollator. VITAL SIGNS Temperature: 97.8 F SBP/DBP: 130/63 Pulse: 74 Resp: 16 MEDICATION ALLERGIES: No Known Drug Allergies (NKDA) ENVIRONMENTAL ALLERGIES: - Substance Allergies None Known - Other Allergies None Known NURSING: - Shower allowing shower - Bladder care per protocol - Skin care per protocol ACTIVITIES OOB only with supervision THERAPIES: - Orthotics/Prosthetics Orthotic Evaluation. Splinting/Casting. - Dietary and Nutrition Adequate Nutrition. Nutritional Education. Nutritional Supplements. PHYSICAL EXAM - Gen Alert and awake Lying in bed No apparent distress Oriented to: person, time, and place - Skin No skin breakdown. No abnormalities - Eyes No abnormalities - ENMT No abnormalities - Neck No abnormalities - CVS RRR - Chest No abnormalities - Resp Clear to auscultation - Abd Soft - GI Soft No abnormalities - No abnormalities - Ext No significant edema - MSK Unremarkable - Neuro No focal deficits - Psych No abnormalities ASSESSMENT: Pt. 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 was independent/mod-I in L ocomotion, Balance, Safety Awareness, Transfers Control, and Self-Care; and she had good Endurance an d Communication.Currently, she has deficits of Locomotion, Balance, Sphincter Control, and Self-Care. Pt. is now referred to [facility] for acute in-patient rehabilitation in order to maximize patient's functional independence in activities of daily living, strength, ROM, and mobi lity.- Rehab Goal Patient has realistic goal of being discharged at assistance level 7-Ind to reside at Home with Fami ly/Relatives. MDM/PLAN: - Physical Therapy Gait dysfunction - to improve, our physical therapists will perform initial evaluation of pt's statu s upon admission and devise an individualized program for Gait Training, and Wheel Chair mobility Need for home safety evaluation - to improve, our physical therapists will perform initial evaluatio n of pt's status upon admission and devise an individualized program for Home Evaluation Need in caregiver upon discharge - to improve, our physical therapists will perform initial evaluati on of pt's status upon admission and devise an individualized program for Caregiver Training New precaution - to improve, our physical therapists will perform initial evaluation of pt's status upon admission and devise an individualized program for Patient precaution education Edema - to improve, our physical therapists will perform initial evaluation of pt's status upon admi ssion and devise an individualized program for Elevation Training, and Lymphedema Therapy Poor balance - to improve, our physical therapists will perform initial evaluation of pt's status up on admission and devise an individualized program for Balance Training Weakness - to improve, our physical therapists will perform initial evaluation of pt's status upon a dmission and devise an individualized program for Aquatic Therapy, Neuromuscular Reeducation, and Str engthening Achieving independence - to improve, our physical therapists will perform initial evaluation of pt's status upon admission and devise an individualized program for Community Reintegration Activities - Occupational Therapy ADL deficits - to improve, our occupation therapists will perform initial evaluation of pt's status upon admission and devise an individualized program for Bathing, Bed mobility, Community Reintegratio n, Cooking, Dressing, Eating, Fine Motor Skills, Grooming, Homemaking, Kitchen Mobility, Laundry, Pat ient Education, Safety Awareness, Splinting - Positioning, Transfers(Toilet, Tub, Shower), and Wheel Chair Management Need for continuum of care manager - to improve, our occupation therapists will perform initial evaluation of pt's status upon admission and devise an individualized program for Caregiver Training Weakness - to improve, our occupation therapists will perform initial evaluation of pt's status upon admission and devise an individualized program for Aquatic Therapy, Balance, Endurance, UE ROM, and UE strengthening - Other See attached MAR (Medication Administration Record) - Diet Type Continue Regular - Diet - Liquid Texture Continue Regular - Tube Feed Continue N/A - Bladder care per protocol - Skin care per protocol - Diet - Solid Texture Continue Regular - Shower allowing shower FUNCTIONAL STATUS: UPDATED AT WEEKLY TEAM CONFERENCE - Bladder Same accident frequency: 7-Ind - No accidents in the past 7 days - Bowel Same accident frequency: 7-Ind - No accidents in the past 7 days - Walking Same score based on distance walked: 0(N/A) Same score based on distance walked: 3(>=150ft) - Wheelchair Same score based on distance traveled: 0(N/A) FUNCTIONAL STATUS: - Self-Care A. Eating Ind B. Grooming Jitendra C. Bathing sup D. Dressing - Upper Danielle E. Dressing - Lower Danielle F. Toileting sup - Sphincter Control G. Bladder control Jitendra H. Bowel control Jitendra - Transfers Control I. Bed/Chair/Wheelchair sup J. Toilet sup K. Tub/Shower Danielle - Locomotion L. Walk/Wheelchair (B) Danielle M. Stairs Danielle - Communication N. Comprehension (B) Jitendra O. Expression (B) Jitendra - Social Cognition P. Social Interaction Jitendra Q. Problem Solving Jitendra R. Memory Jitendra - Endurance Good - Balance Good - Safety Awareness Good QI SCORES: - Self-Care A. Eating 03-Partial/moderate assistance B. Oral hygiene 03-Partial/moderate assistance C. Toileting hygiene 88-Not attempted due to medical condition or safety concerns E. Shower/bathe self 03-Partial/moderate assistance F. Upper body dressing 02-Substantial/maximal assistance G. Lower body dressing 02-Substantial/maximal assistance - Mobility A. Roll left and right 03-Partial/moderate assistance B. Sit to lying 03-Partial/moderate assistance C. Lying to sitting on side of bed 03-Partial/moderate assistance D. Sit to stand 02-Substantial/maximal assistance E. Chair/aph-ha-zagda transfer 02-Substantial/maximal assistance F. Toilet transfer 03-Partial/moderate assistance G. Car transfer 03-Partial/moderate assistance I. Walk 10 feet 03-Partial/moderate assistance J. Walk 50 feet with two turns 03-Partial/moderate assistance K. Walk 150 feet 03-Partial/moderate assistance L. Walking 10 feet on uneven surfaces 88-Not attempted due to medical condition or safety concerns M. 1 step (curb) 88-Not attempted due to medical condition or safety concerns N. 4 steps 88-Not attempted due to medical condition or safety concerns O. 12 steps 88-Not attempted due to medical condition or safety concerns P. Picking up object 88-Not attempted due to medical condition or safety concerns R. Wheel 50 feet with two turns 88-Not attempted due to medical condition or safety concerns S. Wheel 150 feet 88-Not attempted due to medical condition or safety concerns - Bladder and Bowel Bladder continence Bowel continence - Endurance Fair - Balance Fair - Safety Awareness Fair [facility]RENT [facility]. 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
[2020-02-22] MEDS: ENOXAPARIN 40 MG/0.4 ML SQ SCH (20:16)
[2020-02-22] MEDS: MELATONIN 3 MG TABLET PO PRN (20:17)
[2020-02-23] MEDS: TRAMADOL HCL 50 MG TAB PO PRN (02:29)
[2020-02-23 06:08] LABS: Absolute Lymphocytes (CBC) 1.7 K/uL (0.7-4.9); Basophils % 0.2 % (0-1.3); Hematocrit 35.4 % (36.0-45.0); Lymphocytes % 22.9 % (15.3-44.8); MPV 6.2 fL (7.6-11.3); RBC Red Blood Cell Count 3.88 M/uL (3.86-4.86)
[2020-02-23 06:27] LABS: Albumin 3.2 g/dL (3.4-5.0); Magnesium 2.2 mg/dL (1.8-2.4); Potassium 3.9 mmol/L (3.5-5.1); Prealbumin 19.2 mg/dL (20-40)
[2020-02-23] MEDS: INSULIN -REGULAR HUMAN 50 UNIT/0.5 ML ML SQ SCH ×4 (07:30→20:31)
[2020-02-23] MEDS: METOPROLOL TAR 50 MG TAB PO SCH ×2 (08:18→20:30)
[2020-02-23] MEDS: CRANBERRY FRUIT EXTRACT 200 MG CAP PO SCH ×2 (08:19→20:30)
[2020-02-23] MEDS: ASPIRIN 81 MG CHEWABLE TABLET PO SCH (08:19)
[2020-02-23] MEDS: METFORMIN HCL 500 MG TAB PO SCH ×2 (08:19→17:06)
[2020-02-23] MEDS: CALCIUM CARBONATE 500 MG TAB PO SCH ×2 (08:19→20:30)
[2020-02-23] MEDS: INSULIN GLARGINE 100 UNITS/ML SQ SCH (08:23)
[2020-02-23 09:07] LABS: Blood Morphology Comment NOT SEEN (NOT SEEN); Platelet Estimate INCR; White Blood Cell Scan OK (OK)
[2020-02-23] MEDS: LOPERAMIDE HCL 2 MG CAPSULE PO PRN (13:58)
--- NOTE | 2020-02-23 17:52 | R.PN ---
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 Pt denied any Shortness of Breath. WBC 7.4, Hgb 12.2, prealbumin 19.2, glucose 107 to 143. Ambulated 1500' with independence using a rolling walker. Up and down 25 steps with independence. VITAL SIGNS Temperature: 98.8 F SBP/DBP: 111/67 Pulse: 73 Resp: 16 MEDICATION ALLERGIES: No Known Drug Allergies (NKDA) ENVIRONMENTAL ALLERGIES: - Substance Allergies None Known - Other Allergies None Known NURSING: - Shower allowing shower - Bladder care per protocol - Skin care per protocol ACTIVITIES OOB only with supervision THERAPIES: - Orthotics/Prosthetics Orthotic Evaluation. Splinting/Casting. - Dietary and Nutrition Adequate Nutrition. Nutritional Education. Nutritional Supplements. PHYSICAL EXAM - Gen Alert and awake Lying in bed No apparent distress Oriented to: person, time, and place - Skin No skin breakdown. No abnormalities - Eyes No abnormalities - ENMT No abnormalities - Neck No abnormalities - CVS RRR - Chest No abnormalities - Resp Clear to auscultation - Abd Soft - GI Soft No abnormalities - No abnormalities - Ext No significant edema - MSK Unremarkable - Neuro No focal deficits - Psych No abnormalities ASSESSMENT: Pt. 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 was independent/mod-I in L ocomotion, Balance, Safety Awareness, Transfers Control, and Self-Care; and she had good Endurance an d Communication.Currently, she has deficits of Locomotion, Balance, Sphincter Control, and Self-Care. Pt. is now referred to [facility] for acute in-patient rehabilitation in order to maximize patient's functional independence in activities of daily living, strength, ROM, and mobi lity.- Rehab Goal Patient has realistic goal of being discharged at assistance level 7-Ind to reside at Home with Fami ly/Relatives. MDM/PLAN: - Physical Therapy Gait dysfunction - to improve, our physical therapists will perform initial evaluation of pt's statu s upon admission and devise an individualized program for Gait Training, and Wheel Chair mobility Need for home safety evaluation - to improve, our physical therapists will perform initial evaluatio n of pt's status upon admission and devise an individualized program for Home Evaluation Need in caregiver upon discharge - to improve, our physical therapists will perform initial evaluati on of pt's status upon admission and devise an individualized program for Caregiver Training New precaution - to improve, our physical therapists will perform initial evaluation of pt's status upon admission and devise an individualized program for Patient precaution education Edema - to improve, our physical therapists will perform initial evaluation of pt's status upon admi ssion and devise an individualized program for Elevation Training, and Lymphedema Therapy Poor balance - to improve, our physical therapists will perform initial evaluation of pt's status up on admission and devise an individualized program for Balance Training Weakness - to improve, our physical therapists will perform initial evaluation of pt's status upon a dmission and devise an individualized program for Aquatic Therapy, Neuromuscular Reeducation, and Str engthening Achieving independence - to improve, our physical therapists will perform initial evaluation of pt's status upon admission and devise an individualized program for Community Reintegration Activities - Occupational Therapy ADL deficits - to improve, our occupation therapists will perform initial evaluation of pt's status upon admission and devise an individualized program for Bathing, Bed mobility, Community Reintegratio n, Cooking, Dressing, Eating, Fine Motor Skills, Grooming, Homemaking, Kitchen Mobility, Laundry, Pat ient Education, Safety Awareness, Splinting - Positioning, Transfers(Toilet, Tub, Shower), and Wheel Chair Management Need for adult daycare coordinator - to improve, our occupation therapists will perform initial evaluation of pt's status upon admission and devise an individualized program for Caregiver Training Weakness - to improve, our occupation therapists will perform initial evaluation of pt's status upon admission and devise an individualized program for Aquatic Therapy, Balance, Endurance, UE ROM, and UE strengthening - Other See attached MAR (Medication Administration Record) - Diet Type Continue Regular - Diet - Liquid Texture Continue Regular - Tube Feed Continue N/A - Bladder care per protocol - Skin care per protocol - Diet - Solid Texture Continue Regular - Shower allowing shower FUNCTIONAL STATUS: UPDATED AT WEEKLY TEAM CONFERENCE - Bladder Same accident frequency: 7-Ind - No accidents in the past 7 days - Bowel Same accident frequency: 7-Ind - No accidents in the past 7 days - Walking Same score based on distance walked: 0(N/A) Same score based on distance walked: 3(>=150ft) - Wheelchair Same score based on distance traveled: 0(N/A) FUNCTIONAL STATUS: - Self-Care A. Eating Ind B. Grooming Jitendra C. Bathing sup D. Dressing - Upper Danielle E. Dressing - Lower Danielle F. Toileting sup - Sphincter Control G. Bladder control Jitendra H. Bowel control Jitendra - Transfers Control I. Bed/Chair/Wheelchair sup J. Toilet sup K. Tub/Shower Danielle - Locomotion L. Walk/Wheelchair (B) Danielel M. Stairs Danielle - Communication N. Comprehension (B) Jitendra O. Expression (B) Jitendra - Social Cognition P. Social Interaction Jitendra Q. Problem Solving Jitendra R. Memory Jitendra - Endurance Good - Balance Good - Safety Awareness Good QI SCORES: - Self-Care A. Eating 03-Partial/moderate assistance B. Oral hygiene 03-Partial/moderate assistance C. Toileting hygiene 88-Not attempted due to medical condition or safety concerns E. Shower/bathe self 03-Partial/moderate assistance F. Upper body dressing 02-Substantial/maximal assistance G. Lower body dressing 02-Substantial/maximal assistance - Mobility A. Roll left and right 03-Partial/moderate assistance B. Sit to lying 03-Partial/moderate assistance C. Lying to sitting on side of bed 03-Partial/moderate assistance D. Sit to stand 02-Substantial/maximal assistance E. Chair/[id number]-[id number] transfer 02-Substantial/maximal assistance F. Toilet transfer 03-Partial/moderate assistance G. Car transfer 03-Partial/moderate assistance I. Walk 10 feet 03-Partial/moderate assistance J. Walk 50 feet with two turns 03-Partial/moderate assistance K. Walk 150 feet 03-Partial/moderate assistance L. Walking 10 feet on uneven surfaces 88-Not attempted due to medical condition or safety concerns M. 1 step (curb) 88-Not attempted due to medical condition or safety concerns N. 4 steps 88-Not attempted due to medical condition or safety concerns O. 12 steps 88-Not attempted due to medical condition or safety concerns P. Picking up object 88-Not attempted due to medical condition or safety concerns R. Wheel 50 feet with two turns 88-Not attempted due to medical condition or safety concerns S. Wheel 150 feet 88-Not attempted due to medical condition or safety concerns - Bladder and Bowel Bladder continence Bowel continence - Endurance Fair - Balance Fair - Safety Awareness Fair CURRENT PENDING SALE TO [facility]. 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
[2020-02-23] MEDS: ENOXAPARIN 40 MG/0.4 ML SQ SCH (20:31)
[2020-02-24] MEDS: INSULIN -REGULAR HUMAN 50 UNIT/0.5 ML ML SQ SCH ×4 (07:30→20:02)
[2020-02-24] MEDS: INSULIN GLARGINE 100 UNITS/ML SQ SCH (07:58)
[2020-02-24] MEDS: ASPIRIN 81 MG CHEWABLE TABLET PO SCH (07:59)
[2020-02-24] MEDS: CRANBERRY FRUIT EXTRACT 200 MG CAP PO SCH ×2 (07:59→19:59)
[2020-02-24] MEDS: METFORMIN HCL 500 MG TAB PO SCH ×2 (07:59→17:05)
[2020-02-24] MEDS: CALCIUM CARBONATE 500 MG TAB PO SCH ×2 (07:59→20:00)
[2020-02-24] MEDS: METOPROLOL TAR 50 MG TAB PO SCH ×2 (07:59→20:00)
--- NOTE | 2020-02-24 09:52 | P.RH.PN ---
Estimated Length of Stay: 12 Expected Discharge Date: 02/25/20 Discharge Disposition Plan: Home Family Support: Yes Senior Care Goal: Mobility, Transfers, Self Care Vital Signs: Last Vital Signs Temp 98.8 F 02/24/20 07:18 Pulse 70 02/24/20 07:59 Resp 16 02/24/20 07:18 BP 136/73 02/24/20 07:59 Pulse Ox 98 02/24/20 07:18 Laboratory: Laboratory Last Values WBC 7.4 K/uL (4.3-10.9) 02/23/20 05:43 RBC 3.88 M/uL (3.86-4.86) 02/23/20 05:43 Hgb 12.2 g/dL (12.0-15.0) 02/23/20 05:43 Hct 35.4 % (36.0-45.0) L 02/23/20 05:43 MCV 91.3 fL (80-100) 02/23/20 05:43 MCH 31.5 pg (27.0-35.0) 02/23/20 05:43 MCHC 34.5 g/dL (32.0-36.0) 02/23/20 05:43 RDW 14.0 % (12.1-15.2) 02/23/20 05:43 Plt Count 456 K/uL (152-406) H D 02/23/20 05:43 MPV 6.2 fL (7.6-11.3) L 02/23/20 05:43 Neutrophils % 61.0 % (41.7-73.7) 02/23/20 05:43 Lymphocytes % 22.9 % (15.3-44.8) 02/23/20 05:43 Monocytes % 10.4 % (3.3-12.3) 02/23/20 05:43 Eosinophils % 5.5 % (0-4.4) H 02/23/20 05:43 Basophils % 0.2 % (0-1.3) 02/23/20 05:43 Absolute Neutrophils 4.5 K/uL (1.8-8.0) 02/23/20 05:43 Absolute Lymphocytes 1.7 K/uL (0.7-4.9) 02/23/20 05:43 Absolute Monocytes 0.8 K/uL (0.1-1.3) 02/23/20 05:43 Absolute Eosinophils 0.4 K/uL (0-0.5) 02/23/20 05:43 Absolute Basophils 0.0 K/uL (0-0.5) 02/23/20 05:43 Platelet Estimate Incr 02/23/20 05:43 Morphology Comment Not seen (NOT SEEN) 02/23/20 05:43 Sodium 137 mmol/L (136-145) 02/23/20 05:43 Potassium 3.9 mmol/L (3.5-5.1) 02/23/20 05:43 Chloride 102 mmol/L (98-107) 02/23/20 05:43 Carbon Dioxide 29 mmol/L (21-32) 02/23/20 05:43 BUN 14 mg/dL (7-18) 02/23/20 05:43 Creatinine 0.78 mg/dL (0.55-1.3) 02/23/20 05:43 Estimated GFR 72 mL/min (=/>90) L 02/23/20 05:43 Glucose 128 mg/dL (74-106) H 02/23/20 05:43 POC Glucose 148 mg/dL (65-120) H 02/24/20 07:22 Calcium 9.3 mg/dL (8.5-10.1) 02/23/20 05:43 Magnesium 2.2 mg/dL (1.8-2.4) 02/23/20 05:43 Albumin 3.2 g/dL (3.4-5.0) L 02/23/20 05:43 Prealbumin 19.2 mg/dL (20-40) L 02/23/20 05:43 Urine Color Yellow 02/14/20 20:20 Urine Appearance Cloudy 02/14/20 20:20 Urine pH 5.5 (5.0-7.0) 02/14/20 20:20 Ur Specific [place] 1.020 (1.005-1.030) 02/14/20 20:20 Glucose (UA)(Auto) Trace (NEG) 02/14/20 20:20 Urine Ketones 2+ (NEG) H 02/14/20 20:20 Urine Blood Negative (NEG) 02/14/20 20:20 Urine Nitrite Negative (NEG) 02/14/20 20:20 Urine Bilirubin Negative (NEG) 02/14/20 20:20 Urine Urobilinogen 0.2 mg/dL (0.2-1.0) 02/14/20 20:20 Ur Leukocyte Esterase 1+ (NEG) H 02/14/20 20:20 Urine RBC <5 /HPF (NONE SEEN) 02/14/20 20:20 Urine WBC 5-10 /HPF (<5) H 02/14/20 20:20 Ur Squamous Epith Cells 5-10 /HPF (NONE SEEN) H 02/14/20 20:20 Urine Bacteria <20 /HPF (<20) 02/14/20 20:20 Urine Yeast Present (NONE SEEN) H 02/14/20 20:20 Urine Culture Reflexed Not needed 02/14/20 20:20 Urine Total Protein Negative (NEG) 02/14/20 20:20 SARS-CoV-2 RNA (RT-PCR) Negative (NEGATIVE) 02/14/20 17:49 Smear Scan Ok (OK) 02/23/20 05:43 Weight: 177 lb 3.2 oz Wound Present: No Closed Surgical Incision Present: Yes Negative Pressure Wound Therapy Present: No Physician Update: Labs reviewed and are stable. She is doing well with physical and occupational therapy. She will be discharged home with home health to continue therapy. Comment: S/P Laminectomy. Posterior Spinal fusion. Hematoma evacuation Functional Improvement: Patient has met all short-term and long-term goals at this time, w/ the exception of a car transfer, due to lack of vehicle availability. Patient presents w/ very good work ethic and safety awareness. Summary: Patient's care plan and detention goals have been reviewed and revised as necessary. Please see the Rehabilitation Signature page for all necessary signatures.
[2020-02-24] MEDS ORDERED: D50W 25 GM/50 ML SYRINGE IV PRN (17:11)
[2020-02-24] MEDS ORDERED: GLUCAGON 1 MG/VIAL IM PRN (17:11)
[2020-02-24] MEDS: ENOXAPARIN 40 MG/0.4 ML SQ SCH (19:59)
[2020-02-25] MEDS: INSULIN -REGULAR HUMAN 50 UNIT/0.5 ML ML SQ SCH ×2 (07:30→11:30)
[2020-02-25 07:33] VITALS: BP 156/82; TEMP 98.5
[2020-02-25] MEDS ORDERED: HOME MED 1 EA UNK SQ SCH (08:00)
[2020-02-25] MEDS ORDERED: INSULIN GLARGINE 100 UNITS/ML SQ SCH (08:00)
[2020-02-25] MEDS: CRANBERRY FRUIT EXTRACT 200 MG CAP PO SCH (09:58)
[2020-02-25] MEDS: ASPIRIN 81 MG CHEWABLE TABLET PO SCH (09:59)
[2020-02-25] MEDS: CALCIUM CARBONATE 500 MG TAB PO SCH (09:59)
[2020-02-25] MEDS: METFORMIN HCL 500 MG TAB PO SCH (10:00)
[2020-02-25] MEDS: METOPROLOL TAR 50 MG TAB PO SCH (10:01)
[2020-02-25] MEDS: LOPERAMIDE HCL 2 MG CAPSULE PO PRN (10:55)
--- NOTE | 2020-03-23 16:41 | R.DS ---
DISCHARGE SUMMARY FACILITY [facility] MR# [id number] NAME CHELY WAGNER ADDRESS [address] [place] [address] [address] [id number] PHONE DATE OF 1940 AGE 79 SSN# [id number] GENDER Female DEXTERITY Right-handed MARITAL STATUS RACE Unknown race ENCOUNTER PHYSICIAN Dr. Asim Sanchez M.D. 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 NURSING: - Shower allowing shower - Bladder care per protocol - Skin care per protocol ACTIVITIES OOB only with supervision THERAPIES: - Orthotics/Prosthetics Orthotic Evaluation Splinting/Casting - Dietary and Nutrition Adequate Nutrition Nutritional Education Nutritional Supplements HISTORY OF PRESENT ILLNESS: Pt. 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 was independent/mod-I in L ocomotion, Balance, Safety Awareness, Transfers Control, and Self-Care; and she had good Endurance an d Communication.Currently, she has deficits of Locomotion, Balance, Sphincter Control, and Self-Care. Pt. is now referred to [facility] for acute in-patient rehabilitation in order to maximize patient's functional independence in activities of daily living, strength, ROM, and mobi lity.- Rehab Goal Patient has realistic goal of being discharged at assistance level 7-Ind to reside at Home with Fami ly/Relatives. DIET - LIQUID TEXTURE: On 02/14/2020 Pt was upgraded to Regular Diet - Liquid Texture. DIET - SOLID TEXTURE: On 02/14/2020 Pt was upgraded to Regular Diet - Solid Texture. DIET TYPE: On 02/14/2020 Pt was upgraded to Regular Diet Type. TUBE FEED: On 02/14/2020 Pt was changed to N/A Tube Feed. DISCHARGE PHYSICAL EXAM - Gen Alert and awake Lying in bed No apparent distress Oriented to: person, time, and place - Skin No skin breakdown. No abnormalities - Eyes No abnormalities - ENMT No abnormalities - Neck No abnormalities - CVS RRR - Chest No abnormalities - Resp Clear to auscultation - Abd Soft - GI Soft No abnormalities - No abnormalities - Ext No significant edema - MSK Unremarkable - Neuro No focal deficits - Psych No abnormalities FUNCTIONAL STATUS: - Self-Care A. Eating 7-Ind B. Grooming 6-Jitendra C. Bathing 6-Jitendra D. Dressing - Upper 6-Jitendra E. Dressing - Lower 6-Jitendra F. Toileting 6-Jitendra - Sphincter Control G. Bladder control 6-Jitendra H. Bowel control 6-Jitendra - Transfers Control I. Bed/Chair/Wheelchair 6-Jitendra J. Toilet 6-Jitendra K. Tub/Shower 6-Jitendra - Locomotion L. Walk/Wheelchair (B) 6-Jitendra M. Stairs 6-Jitendra - Communication N. Comprehension (B) 6-Jitendra O. Expression (B) 6-Jitendra - Social Cognition P. Social Interaction 6-Jitendra Q. Problem Solving 6-Jitendra R. Memory 6-Jitendra - Endurance Good - Balance Good - Safety Awareness Good QI SCORES: - Self-Care A. Eating 03-Partial/moderate assistance B. Oral hygiene 03-Partial/moderate assistance C. Toileting hygiene 88-Not attempted due to medical condition or safety concerns E. Shower/bathe self 03-Partial/moderate assistance F. Upper body dressing 02-Substantial/maximal assistance G. Lower body dressing 02-Substantial/maximal assistance - Mobility A. Roll left and right 03-Partial/moderate assistance B. Sit to lying 03-Partial/moderate assistance C. Lying to sitting on side of bed 03-Partial/moderate assistance D. Sit to stand 02-Substantial/maximal assistance E. Chair/whp-sp-lawpp transfer 02-Substantial/maximal assistance F. Toilet transfer 03-Partial/moderate assistance G. Car transfer 03-Partial/moderate assistance I. Walk 10 feet 03-Partial/moderate assistance J. Walk 50 feet with two turns 03-Partial/moderate assistance K. Walk 150 feet 03-Partial/moderate assistance L. Walking 10 feet on uneven surfaces 88-Not attempted due to medical condition or safety concerns M. 1 step (curb) 88-Not attempted due to medical condition or safety concerns N. 4 steps 88-Not attempted due to medical condition or safety concerns O. 12 steps 88-Not attempted due to medical condition or safety concerns P. Picking up object 88-Not attempted due to medical condition or safety concerns R. Wheel 50 feet with two turns 88-Not attempted due to medical condition or safety concerns S. Wheel 150 feet 88-Not attempted due to medical condition or safety concerns - Bladder and Bowel Bladder continence Bowel continence - Endurance Fair - Balance Fair - Safety Awareness Fair DISCHARGE INSTRUCTIONS: - N/A Lovenox 40 mg sq daily. DISCHARGE PLAN, FOLLOW UP CARE PROVISIONS: - Estimated Length of Stay (days) 27. - Consensus on plan Discharge plan has been discussed with primary caregiver. Patient/Family is in agreement with the milli n. Primary caregiver is in agreement with the plan. - Patient/Family Goals Return home independently. - Planned Living Setting Upon Discharge Home, to live with Family/Relatives. Transitional Living. 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
== END 2020-02-25 12:00 | disposition home health service (06) | DRG 561 ==
LOC: 5TH 17:28
PROVIDERS: ADMIT Psychiatry & Neurology Neurology with Special Qualifications in Child Neurology; ATTEND Psychiatry & Neurology Neurology with Special Qualifications in Child Neurology
DX: S12.500D Unspecified displaced fracture of sixth cervical vertebra, subsequent encounter for fracture with routine healing (principal); Z90.710 Acquired absence of both cervix and uterus; Z20.828 Contact with and (suspected) exposure to other viral communicable diseases
CPT/HCPCS: 36415; 80048; 81001; 82040; 82947; 83735; 84134; 85025; 87077; 87086; 87088; 87186; 97110; 97112; 97116; 97161; 97530; 97542; J1650; J1815; U0002; U0003

== ENCOUNTER 2022-04-20 01:46 | Emergency (ER) | payer OTHER, MEDICARE ==
--- OUTSIDE RECORDS SUMMARY | 2022-04-20 01:49 | XMS REPORT | Continuity of Care Document ---
:1940 Author Organization [facility] t Address [address] [place] [address] Care Team Providers Name Role Phone SINA MORALES Attending Clinician Unavailable Cliff_Tatianna Attending Clinician Unavailable SINA MORALES M.D. Attending Clinician Unavailable Vitor Admitting Clinician Unavailable Payers Payer Name Policy Type Policy Number Effective Date Expiration Date S sylvia MEDICARE PART A AND [id number] 2007 B 00:00:00 MEDICARE B-[place]: [id number] 2007 [employer] 00:00:00 [employer] [id number] 2017 2022 00:00:00 00:00:00 [employer] (MEDICARE [id number] 2022 REPLACEMENT PPO) 00:00:00 Problems Condition Condition Condition Status Onset Resolution Last Treating Co mments Source Name Details Category Date Date Treatment Clinician Date Body mass Body Mass Problem Active Philomena pito index Index 1-03 Family 25-29 - 25-29 - 00:00: Practic overweight Overweight 00 e Candidiasi Candidiasi Problem Active 2021-03 [facility] ill[facility] s of s of 0-03 Family vagina Vagina 00:00: Practic 00 e Hypertensi Hypertensi Problem Active [facility] ve ve 4- Family disorder Disorder 00:00: Practi c 00 e 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 Purpura 4-01 Family 00:00: Practic 00 e Mixed Mixed Problem Active [facility] hyperlipid Hyperlipid 2-04 Fa yulisa emia emia 00:00: Practic 00 e Secondary Secondary Problem Active Philomena sheldon polycythem Polycythem 2-04 Eden márquez ia ia 00:00: Practic 00 e Obstructiv Obstructiv Problem Active [facility] e sleep e Sleep -04 Family apnea Apnea 00:00: Practic syndrome Syndrome 00 e Foot Foot Problem Active [facility] callus Callus 2-04 Family 00:00: Practic 00 e Blister Blister Problem Active [facility] 2-04 Family 00:00: Practic 00 e Elevated Elevated Problem Active Nic ge blood-pres Blood-pres 03-15 Eden márquez sure sure 00:00: Practic reading Reading 00 e without without diagnosis Diagnosis of of hypertensi Hypertensi on on Type 2 Type 2 Problem Active [facility] diabetes Diabetes 03-15 Family mellitus Mellitus 00:00: Practi c 00 e Cervical Cervical Problem Active [facility] pain pain Physici ans Thoracic Thoracic Problem Active [facility] back pain back pain Phys ici ans Hand Hand Problem Active [facility] weakness weakness Physic i ans Allergies, Adverse Reactions, Alerts This patient has no known allergies or adverse reactions. Social History Social Habit Start Date Stop Date Quantity Comments Source Exposure to SARS-CoV-2 Not sure [facility] (event) Sex Assigned At [birth year] [facility] 00:00:00 00:00:00 Smoking Status Start Date Stop Date Source Unknown if ever smoked [facility] Medications Ordered Filled Start Stop Current Ordering Indication Dosage Frequency Signature Comments Components Source Medication Medication Date Date Medication? Clinician (SIG) Name Name aspirin 81 aspirin 81 No aspirin 81 [facility] mg capsule mg capsule mg capsule Family Take two Take two Take two Pra ctic capsule capsule capsule e daily daily daily cetirizine cetirizine No cetirizine [facility] 10 mg 10 mg 10 mg Family tablet TAKE tablet TAKE tablet Practic 1 TABLET BY 1 TABLET BY TAKE 1 e MOUTH EVERY MOUTH EVERY TABLET BY DAY DAY MOUTH NEEDED FOR NEEDED FOR EVERY DAY CONGESTION CONGESTION NEEDED FOR CONGESTION Jardiance Jardiance No 1 Q1D Jardiance [facility] 10 mg 10 mg 10 mg Family tablet Take tablet Take tablet Practic 1 tablet 1 tablet Take 1 e every day every day tablet by oral by oral every day route in route in by oral the morning the morning route in for 30 for 30 the days. days. morning for 30 days. metoprolol metoprolol No metoprolol [facility] tartrate tartrate tartrate Fam giacomo 100 mg 100 mg 100 mg Practic tablet TAKE tablet TAKE tablet e 1 TABLET BY 1 TABLET BY TAKE 1 MOUTH TWICE MOUTH TWICE TABLET BY A DAY A DAY MOUTH TWICE A DAY mupirocin 2 mupirocin 2 No mupirocin [facility] % topical % topical 2 % Famil y ointment ointment topical Prac tic APPLY TO APPLY TO ointment e AFFECTED AFFECTED APPLY TO AREA 3 AREA 3 AFFECTED TIMES A DAY TIMES A DAY AREA 3 TIMES A DAY OneTouch OneTouch No OneTouch [facility] Del[facility] Family Lancets 33 Lancets 33 Lancets 33 Practic gauge 3 gauge 3 gauge 3 e TIMES A DAY TIMES A DAY TIMES A DAY OneTouch OneTouch No 2strip( Q1D [facility] Verio test Verio test s) Verio test Family strips Take strips Take strips Practic 2 strips 2 strips Take 2 e every day every day strips by miscell. by miscell. every day route for route for by 90 days. 90 days. miscell. route for 90 days. prednisolon prednisolon No prednisolo [facility] e acetate 1 e acetate 1 ne acetate Family % eye % eye 1 % eye Practic drops,suspe drops,suspe drops,susp e nsion nsion ension INSTILL 1 INSTILL 1 INSTILL 1 DROP INTO DROP INTO DROP INTO BOTH EYES 4 BOTH EYES 4 BOTH EYES TIMES A DAY TIMES A DAY 4 TIMES A FOR 5 DAYS FOR 5 DAYS DAY FOR 5 DAYS Trulicity Trulicity No 1.5mg Q1W Trulicity [facility] 1.5 mg/0.5 1.5 mg/0.5 1.5 mg/0.5 Family mL mL mL Practic subcutaneou subcutaneou subcutaneo e s pen s pen us pen injector injector injector Inject 1.5 Inject 1.5 Inject 1.5 mg every mg every mg every week by week by week by subcutaneou subcutaneou subcutaneo s route for s route for us route 30 days. 30 days. for 30 days. valsartan valsartan valsartan [facility] 80 mg 80 mg 80 mg Family tablet TAKE tablet TAKE tablet Practic 1 TABLET BY 1 TABLET BY TAKE 1 e MOUTH EVERY MOUTH EVERY TABLET BY DAY FOR 30 DAY FOR 30 MOUTH DAYS DAYS EVERY DAY FOR 30 DAYS aspirin 81 aspirin 81 No aspirin 81 [facility] mg capsule mg capsule mg capsule Family Take two Take two Take two Pra ctic capsule capsule capsule e daily daily daily fluconazole fluconazole No 1 Q1D fluconazol [facility] 150 mg 150 mg e 150 mg Family tablet Take tablet Take tablet Practic 1 tablet 1 tablet Take 1 e every day every day tablet by oral by oral every day route for 3 route for 3 by oral days. days. route for 3 days. FreeStyle FreeStyle No FreeStyle [facility] Tomy 2 Tomy 2 Tomy 2 Family Sensor kit Sensor kit Sensor kit Practic USE USE USE e DIRECTED DIRECTED DIRECTED DAILY BUT DAILY BUT DAILY BUT CHANGE CHANGE CHANGE EVERY 14 EVERY 14 EVERY 14 DAYS. DAYS. DAYS. Jardiance Jardiance No Jardiance [facility] 10 mg 10 mg 10 mg Family tablet TAKE tablet TAKE tablet Practic 1 TABLET BY 1 TABLET BY TAKE 1 e MOUTH EVERY MOUTH EVERY TABLET BY DAY IN THE DAY IN THE MOUTH MORNING MORNING EVERY DAY IN THE MORNING metoprolol metoprolol No metoprolol [facility] tartrate tartrate tartrate Fam giacomo 100 mg 100 mg 100 mg Practic tablet TAKE tablet TAKE tablet e 1 TABLET BY 1 TABLET BY TAKE 1 MOUTH TWICE MOUTH TWICE TABLET BY A DAY A DAY MOUTH TWICE A DAY OneTouch OneTouch No OneTouch [facility] Family Lancets 33 Lancets 33 Lancets 33 Practic gauge 3 gauge 3 gauge 3 e TIMES A DAY TIMES A DAY TIMES A DAY OneTouch OneTouch No 2strip( Q1D OneTouch [facility] Verio test Verio test s) Verio test Family strips Take strips Take strips Practic 2 strips 2 strips Take 2 e every day every day strips by miscell. by miscell. every day route for route for by 90 days. 90 days. miscell. route for 90 days. Trulicity Trulicity No Trulicity [facility] 1.5 mg/0.5 1.5 mg/0.5 1.5 mg/0.5 Family mL mL mL Practic subcutaneou subcutaneou subcutaneo e s pen s pen us pen injector injector injector INJECT 1.5 INJECT 1.5 INJECT 1.5 MG UNDER MG UNDER MG UNDER THE SKIN THE SKIN THE SKIN ONCE EVERY ONCE EVERY ONCE EVERY WEEK BY WEEK BY WEEK BY SUBCUTANEOU SUBCUTANEOU SUBCUTANEO S ROUTE FOR S ROUTE FOR US ROUTE 30 DAYS. 30 DAYS. FOR 30 DAYS. valsartan valsartan No valsartan [facility] 80 mg 80 mg 80 mg Family tablet TAKE tablet TAKE tablet Practic 1 TABLET BY 1 TABLET BY TAKE 1 e MOUTH EVERY MOUTH EVERY TABLET BY DAY FOR 30 DAY FOR 30 MOUTH DAYS DAYS EVERY DAY FOR 30 DAYS aspirin 81 aspirin 81 No aspirin 81 [facility] mg capsule mg capsule mg capsule Family Take two Take two Take two Pra ctic capsule capsule capsule e daily daily daily FreeStyle FreeStyle No FreeStyle [facility] Tomy 14 Tomy 14 Tomy 14 Fam giacomo Day Sensor Day Sensor Day Sensor Practic kit USE kit USE kit USE e DIRECTED DIRECTED DIRECTED DAILY BUT DAILY BUT DAILY BUT CHANGE CHANGE CHANGE EVERY 14 EVERY 14 EVERY 14 DAYS. DAYS. DAYS. Jardiance Jardiance No 1 Q1D Jardiance [facility] 10 mg 10 mg 10 mg Family tablet Take tablet Take tablet Practic 1 tablet 1 tablet Take 1 e every day every day tablet by oral by oral every day route in route in by oral the morning the morning route in for 30 for 30 the days. days. morning for 30 days. loteprednol loteprednol No lotepredno [facility] etabonate etabonate l Famil y 0.5 % eye 0.5 % eye etabonate Practic drops,suspe drops,suspe 0.5 % eye e nsion nsion drops,susp INSTILL ONE INSTILL ONE ension DROP EVERY DROP EVERY INSTILL 4 HOURS 4 HOURS ONE DROP INTO BOTH INTO BOTH EVERY 4 EYES FOR 7 EYES FOR 7 HOURS INTO DAYS DAYS BOTH EYES FOR 7 DAYS metoprolol metoprolol No metoprolol [facility] tartrate tartrate tartrate [facility] giacomo 100 mg 100 mg 100 mg Practic tablet TAKE tablet TAKE tablet e 1 TABLET BY 1 TABLET BY TAKE 1 MOUTH TWICE MOUTH TWICE TABLET BY A DAY A DAY MOUTH TWICE A DAY OneTouch OneTouch No OneTouch [facility] Delica Delica Delica Family Lancets 33 Lancets 33 Lancets 33 Practic gauge 3 gauge 3 gauge 3 e TIMES A DAY TIMES A DAY TIMES A DAY OneTouch OneTouch No 2strip( Q1D OneTouch [facility] Verio test Verio test s) Verio test Family strips Take strips Take strips Practic 2 strips 2 strips Take 2 e every day every day strips by miscell. by miscell. every day route for route for by 90 days. 90 days. miscell. route for 90 days. Trulicity Trulicity No 1.5mg Q1W Trulicity [facility] 1.5 mg/0.5 1.5 mg/0.5 1.5 mg/0.5 Family mL mL mL Practic subcutaneou subcutaneou subcutaneo e s pen s pen us pen injector injector injector Inject 1.5 Inject 1.5 Inject 1.5 mg every mg every mg every week by week by week by subcutaneou subcutaneou subcutaneo s route for s route for us route 30 days. 30 days. for 30 days. valsartan valsartan No valsartan [facility] 80 mg 80 mg 80 mg Family tablet TAKE tablet TAKE tablet Practic 1 TABLET BY 1 TABLET BY TAKE 1 e MOUTH EVERY MOUTH EVERY TABLET BY DAY FOR 30 DAY FOR 30 MOUTH DAYS DAYS EVERY DAY FOR 30 DAYS Immunizations Ordered Immunization Filled Immunization Date Status Commen ts Source Name Name Non-US Vaccine Non-US Vaccine 2020-11-13 Completed [facility] COVID-19 IV COVID-19 IV 00:00:00 Practice (COVAXIN) (COVAXIN) Non-US Vaccine Non-US Vaccine 2020-11-13 Completed [facility] COVID-19 IV COVID-19 IV 00:00:00 Practice (COVAXIN) (COVAXIN) Non-US Vaccine Non-US Vaccine 2020-11-13 Completed [facility] COVID-19 IV COVID-19 IV 00:00:00 Practice (COVAXIN) (COVAXIN) Non-US Vaccine Non-US Vaccine 2020-05-03 Completed [facility] COVID-19 IV COVID-19 IV 00:00:00 Practice (COVAXIN) (COVAXIN) Non-US Vaccine Non-US Vaccine 2020-05-03 Completed [facility] COVID-19 IV COVID-19 IV 00:00:00 Practice (COVAXIN) (COVAXIN) Non-US Vaccine Non-US Vaccine 2020-05-03 Completed [facility] COVID-19 IV COVID-19 IV 00:00:00 Practice (COVAXIN) (COVAXIN) Non-US Vaccine Non-US Vaccine 2020-04-12 Completed [facility] COVID-19 IV COVID-19 IV 00:00:00 Practice (COVAXIN) (COVAXIN) Non-US Vaccine Non-US Vaccine 2020-04-12 Completed [facility] COVID-19 IV COVID-19 IV 00:00:00 Practice (COVAXIN) (COVAXIN) Non-US Vaccine Non-US Vaccine 2020-04-12 Completed [facility] COVID-19 IV COVID-19 IV 00:00:00 Practice (COVAXIN) (COVAXIN) Vital Signs Vital Name Observation Time Observation Value Comments Source BP Diastolic 2022-03-11 00:00:00 82 mm[Hg] [facility] Height 2022-03-11 00:00:00 66 [in_i] [facility] BMI (Body Mass 2022-03-11 00:00:00 26.5 kg/m2 [facility] Index) Practice BP Systolic 2022-03-11 00:00:00 143 mm[Hg] [facility] Body Weight 2022-03-11 00:00:00 164 [lb_av] [facility] BP Diastolic 2021-12-09 00:00:00 84 mm[Hg] [facility] Height 2021-12-09 00:00:00 66 [in_i] [facility] BMI (Body Mass 2021-12-09 00:00:00 27.3 kg/m2 [facility] Index[facility] BP Systolic 2021-12-09 00:00:00 165 mm[Hg] [facility] Body Weight 2021-12-09 00:00:00 169 [lb_av] [facility] BP Diastolic 2021-09-12 00:00:00 81 mm[Hg] [facility] Height 2021-09-12 00:00:00 66 [in_i] [facility] BMI (Body Mass 2021-09-12 00:00:00 27.6 kg/m2 [facility] Index) [facility] BP Systolic 2021-09-12 00:00:00 135 mm[Hg] [facility] Body Weight 2021-09-12 00:00:00 171 [lb_av] [facility] BP Diastolic 2021-06-07 00:00:00 88 mm[Hg] [facility] Height 2021-06-07 00:00:00 66 [in_i] [facility] BMI (Body Mass 2021-06-07 00:00:00 26.6 kg/m2 [facility] Index) Practice BP Systolic 2021-06-07 00:00:00 157 mm[Hg] [facility] Practice Body Weight 2021-06-07 00:00:00 165 [lb_av] [facility] Practice BP Diastolic 2021-04-12 00:00:00 91 mm[Hg] [facility] Practice Height 2021-04-12 00:00:00 66 [in_i] [facility] Practice BMI (Body Mass 2021-04-12 00:00:00 27.1 kg/m2 [facility] Family Index) Practice BP Systolic 2021-04-12 00:00:00 160 mm[Hg] [facility] Practice Body Weight 2021-04-12 00:00:00 168 [lb_av] [facility] Practice BP Diastolic 2021-03-15 00:00:00 94 mm[Hg] [facility] Practice Height 2021-03-15 00:00:00 66 [in_i] [facility] Practice BMI (Body Mass 2021-03-15 00:00:00 28.1 kg/m2 [facility] Family Index) Practice BP Systolic 2021-03-15 00:00:00 182 mm[Hg] [facility] Practice Body Weight 2021-03-15 00:00:00 174 [lb_av] [facility] Procedures Procedure Date / Time Performed Performing Clinician [facility] e home sleep study 2022-03-11 00:00:00 [facility] home sleep study 2021-09-12 00:00:00 [facility] home sleep study 2021-06-07 00:00:00 [facility] home sleep study 2021-04-12 00:00:00 [facility] XR CERVICAL SPINE 2-3 2020-08-02 19:51:02 [facility] THORACIC SPINE 3 2020-08-02 19:51:02 [facility] 2020-04-09 00:00:00 [facility] Post Op Promis 29 2020-03-08 00:00:00 [facility] Survey Physical Therapy 2020-02-24 00:00:00 [facility] Hernia Repair [facility] Section [facility] Plan of Care Planned Activity Planned Date Details Comments Source Diagnostic Test 2022-03-11 glucose, fingerstick, Philomena pito Family Pending 00:00:00 blood [code = Practice glucose, fingerstick, blood] Diagnostic Test 2022-03-11 hemoglobin A1C, [facility] Pending 00:00:00 fingerstick [code = Practice hemoglobin A1C, fingerstick] Future Appointment 2022-06-08 Melissa Talavera [facility] 00:00:[address]; Practice [address], [place] [address] Future Appointment 2022-05-12 Eleazar Coronado, Melissa [facility] Family 15:30:[address]; Practice [address], [place] [address] Encounters Start End Encounter Admission Attending Care Care Encounter Source Date/Time Date/Time Type Type Clinicians Facility Department ID 2021-07-17 Outpatient [facility] [id number] [place] 15:11:16 [id number] [facility] 2021-01-29 Outpatient LADJENNY, SINA [facility] [id number] [place] 15:04:09 Health 2021-01-29 Outpatient [facility] [id number] [place] 15:03:16 [facility] 2021-01-29 Outpatient [facility] [id number] [place] 15:03:16 [facility] 2020-08-02 Outpatient LADOR, SINA [facility] [id number] [place] 15:34:14 Health 2020-08-02 Outpatient [facility] [id number] [place] 14:29:13 Health 2020-07-14 Outpatient LADOR, SINA [facility] [id number] [place] 03:06:58 Health 2022-03-11 2022-03-11 Outpatient Daniel_T [facility] [address] [place] [address] 00:00:00 00:00:00 [id number] Family Practic e 2022-03-11 2022-03-11 Outpatient Daniel_T [facility] [address] [place] [address] 00:00:00 00:00:00 [id number] Family Practic e 2022-03-11 2022-03-11 Outpatient Daniel_T [facility] [address] [place] [address] 00:00:00 00:00:00 [id number] Family Practic e 2022-03-11 2022-03-11 Eleazar VFP [place] - [id number] V illage 00:00:00 00:00:00 [facility] Family Coronado, Medical - Practi c MD: [id number] [place] - e Shadow VM_HOU_Donaldo [facility], [address], [place] [address] , Ph. 2022-03-09 2022-03-09 Outpatient Daniel_T [facility]FP [facility] [address] [place] [address] 00:00:00 00:00:00 [id number] Family Practic e 2022-03-07 2022-03-07 Outpatient Daniel_T [facility] [address] [place] [address] 00:00:00 00:00:00 [id number] Family Practic e 2021-12-09 2021-12-09 Outpatient Daniel_T [facility] [address] [place] [address] 00:00:00 00:00:00 [id number] Family Practic e 2021-12-09 2021-12-09 Eleazar VFP [place] - [id number] V illage 00:00:00 00:00:00 [facility] Family CoronadoBlu - Kusum madera MD: [id number] [place] - e Shadow HELLEN_HOU_Donaldo [facility], [address], [place] [address] , Ph. 2021-12-05 2021-12-05 Outpatient Daniel_T VFP VFP [address] [place] [address] 00:00:00 00:00:00 [id number] Family Practic e 2021-12-04 2021-12-04 Outpatient Daniel_T [facility] [address] [place] [address] 00:00:00 00:00:00 [id number] Family Practic e 2021 2021 Outpatient Daniel_T [facility]FP [facility] [address] [place] [address] 11:27:00 11:27:00 [id number] Family Practic e 2021-09-12 2021-09-12 Outpatient Daniel_T [facility] [address] [place] [address] 04:27:00 04:27:00 [id number] Family Practic e 2021-09-12 2021-09-12 Eleazar VFP [place] - [id number] V illage 00:00:00 00:00:00 [facility] Family SalazarBlu hector - Kusum madera MD: [id number] DANITA_Donaldo e Shadow [facility], [address], [place] [address] , Ph. 2021-09-03 2021-09-03 Outpatient Daniel_T VFP VFP [address] 01:42:00 01:42:00 [id number] Family Practic e 2021-09-03 2021-09-03 Outpatient Daniel_T VFP VFP [address] [place] [address] 01:42:00 01:42:00 [id number] Family Practic e 2021-07-31 2021-07-31 Outpatient Daniel_T VFP [facility]FP [address] [place] [address] 04:11:00 04:11:00 [id number] Family Practic e 2021-06-13 2021-06-13 Outpatient Daniel_T [facility]FP [facility] [address] [place] [address] 05:32:00 05:32:00 [id number] Family Practic e 2021-06-07 2021-06-07 Outpatient Daniel_T VFP [facility] [address] [place] [address] 03:34:00 03:34:00 [id number] Family Practic e 2021-06-07 2021-06-07 Eleazar VFP [place] - [id number] V illage 00:00:00 00:00:00 [facility] Family Coronado, Medical - Practi c : [id number] DANITA_Donaldo jacob [facility], [facility] [address], [place] [address] , Ph. 2021-05-21 2021-05-21 Outpatient Daniel_T [facility] [address] 03:41:00 03:41:00 [id number] Family Practic e 2021-04-15 2021-04-15 Outpatient Daniel_T VFP VFP [address] [place] [address] 06:44:00 06:44:00 [id number] Family Practic e 2021-04-12 2021-04-12 Outpatient Daniel_T [facility]FP [facility] [address] [place] [address] 03:46:00 03:46:00 [id number] Family Practic e 2021-04-12 2021-04-12 Eleazar VFP [place] - [id number] V illage 00:00:00 00:00:00 [facility] Family Coronado Medical - Pracpreet madera MD: [id number] VM_HOU_Shad e [facility], [address], [place] [address] , Ph. 2021-04-08 2021-04-08 Outpatient Daniel_T VFP VFP [address] [place] [address] 05:38:00 05:38:00 [id number] Family Practic e 2021-03-22 2021-03-22 Outpatient Daniel_T VFP VFP [address] [place] [address] 09:30:00 09:30:00 [id number] Family Practic e 2021-03-15 2021-03-15 Outpatient Daniel_T VFP VFP [address] [place] [address] 12:13:00 12:13:00 [id number] Family Practic e 2021-03-15 2021-03-15 Eleazar VFP [place] - [id number] V illage 00:00:00 00:00:00 [facility]ado Medical - Pracpreet madera MD: [id number] VM_HOU_Shad e Shadow [facility], [address], [place] [address] , Ph. 2021-03-11 2021-03-11 Outpatient Daniel_T VFP V[facility] [address] [place] [address] 03:32:00 03:32:00 [id number] Family Practic e 2021-02-06 2021-02-06 Outpatient Daniel_T VFP [facility]FP [address] [place] [address] 10:35:00 10:35:00 [id number] Family Practic e 2020-08-02 2020-08-02 Office Sina Morales 6400 [id number] [place] 14:02:53 15:32:57 Visit [facility] [id number] [facility] [id number] 2020-04-03 2020-04-03 Appointmen SINA MORALES [facility] [id number] [place] 12:30:00 12:30:00 tAlisa MORALES M.D. at [employer] [facility] ANDINO M.D. Sports [facility] 2020-02-24 2020-02-24 Appointmen ELVIN SINA, [facility] [id number] [place] 12:00:00 12:00:00 Franck Gonzalez M.D. ans Results Test Description Test Time Test Comments Results Result Comments Source Hemoglobin A1c measurement device panel 2022-03-11 15:25:56 Test Item Value Reference Range Interpretation Comme nts Hemoglobin A1c/Hemoglobin.total in Blood (test code = 4548-4) 7.5 % 5.7-6.4 [facility] PracticeGlucose [Mass/volume] in Capillary [id number] 15:22:08 Test Item Value Reference Range Interpretation Comments Blood Glucose: mg/dl (test code = Blood 156 Glucose: mg/dl) [facility] Family PracticeHemoglobin A1c measurement device [id number] 15:29:41 Test Item Value Reference Range Interpretation Comments Hemoglobin A1c/Hemoglobin.total in 7.2 % 5.7-6.4 Blood (test code = 4548-4) [facility] Family PracticeGlucose [Mass/volume] in Capillary [id number] 15:27:23 Test Item Value Reference Range Interpretation Comments Blood Glucose: mg/dl (test code = Blood 124 Glucose: mg/dl) [facility] Family PracticeHemoglobin A1c measurement device [id number] 14:09:08 Test Item Value Reference Range Interpretation Comments Hemoglobin A1c/Hemoglobin.total in 7.8 % 5.7-6.4 Blood (test code = 4548-4) [facility] Family PracticeGlucose [Mass/volume] in Capillary [id number] 14:08:57 Test Item Value Reference Range Interpretation Comments Blood Glucose: mg/dl (test code = Blood 191 Glucose: mg/dl) [facility] Family PracticeHemoglobin A1c measurement device [id number] 14:01:14 Test Item Value Reference Range Interpretation Comments Hemoglobin A1C Fingerstick: (test code 7.4 = Hemoglobin A1C Fingerstick:) [facility] Family PracticeHemoglobin A1c measurement device [id number] 14:01:14 Test Item Value Reference Range Interpretation Comments Hemoglobin A1C Fingerstick: (test code 7.4 = Hemoglobin A1C Fingerstick:) [facility] Family PracticeGlucose [Mass/volume] in Capillary [id number] 13:59:15 Test Item Value Reference Range Interpretation Comments Blood Glucose: mg/dl (test code = Blood 132 Glucose: mg/dl) [facility] Cap[facility] [id number] 13:59:15 Test Item Value Reference Range Interpretation Comments Blood Glucose: mg/dl (test code = Blood 132 Glucose: mg/dl) [facility] [id number] 09:58:19 Test Item Value Reference Range Interpretation Comments Hemoglobin A1C Fingerstick: (test code 8.4 = Hemoglobin A1C Fingerstick:) [facility] [id number] 09:58:19 Test Item Value Reference Range Interpretation Comments Hemoglobin A1C Fingerstick: (test code 8.4 = Hemoglobin A1C Fingerstick:) [facility] [Mass/volume] in Capillary [id number] 09:58:12 Test Item Value Reference Range Interpretation Comments Blood Glucose: mg/dl (test code = Blood 292 Glucose: mg/dl) [facility]] in Capillary [id number] 09:58:12 Test Item Value Reference Range Interpretation Comments Blood Glucose: mg/dl (test code = Blood 292 Glucose: mg/dl) [facility] 3 [id number] 20:32:56X-rays performed to the thoracic spine in AP and lateral views which were reviewed by myself and compared to previous imaging show normal alignment of the thoracic spine and normal position of all screws and hardware.[facility] cervical [facility] 2 or 3 [id number] 20:32:38Extrapulmonary in the cervical and thoracic spine including AP, lateral and open-mouth views which were reviewed by myself and compared to previous imaging show normal position of all hardware and normal alignment of the cervical thoracic spine.[facility][U] XRAY SPINE CERVICAL 2 OR 3 VWS [id number] 12:55:00Images acquired, not reported on this accession number.[facility][U] XRAY SPINE THORACIC 2 VWS [id number] 12:55:00Images acquired, not reported on this accession number.[facility][U] XRAY SPINE THORACIC 2 VWS [id number] 12:04:00Images acquired, not reported on this accession number.[facility][U] XRAY SPINE CERVICAL 2 OR 3 S [id number] 12:04:00Images acquired, not reported on this accession number.[facility]
--- NOTE | 2022-04-20 04:05 | ER ---
Nurse's Notes [facility] Name: Feli Rae Age: 81 yrs Sex: Female : 1940 Arrival Date: 04/20/2022 Time: 01:53 Bed 13 Private MD: Diagnosis: Contusion of right ring finger without damage to nail, initial encounter Presentation: 04/20 02:04 Chief complaint: Patient states: Stumbled and my finger hit a glass around 5 PM ke1 yesterday, later on noticed that my finger is swollen. Coronavirus screen: Vaccine status: Patient reports receiving the 2nd dose of the covid vaccine. Ebola Screen: No symptoms or risks identified at this time. Initial Sepsis Screen: Does the patient meet any 2 criteria? No. Patient's initial sepsis screen is negative. Does the patient have a suspected source of infection? No. Patient's initial sepsis screen is negative. Risk Assessment: Do you want to hurt yourself or someone else? Patient reports no desire to harm self or others. Onset of symptoms was April 19, 2022 at 17:00. 02:04 Method Of Arrival: Ambulatory ke1 02:04 Acuity: RAFAEL 4 ke1 Triage Assessment: 02:07 General: Appears in no apparent distress. Behavior is appropriate for age. Pain: Denies ke1 pain. Musculoskeletal: No deficits noted. Capillary refill < 3 seconds, Range of motion: intact in all extremities. Injury Description: Bruise sustained to ring finger is purple. Historical: - Allergies: 02:06 PENICILLINS; ke1 - PMHx: 02:06 Diabetes - NIDDM; Hypertension; ke1 - Immunization history:: Client reports receiving the 2nd dose of the Covid vaccine. - Social history:: Smoking status: Patient denies any tobacco usage or history of. Screenin:10 [facility] ED Fall Risk Assessment (Adult) History of falling in the last 3 months, ke1 including since admission No falls in past 3 months (0 pts) Confusion or Disorientation No (0 pts) Intoxicated or Sedated No (0 pts) Impaired Gait No (0 pts) Mobility Assist Device Used No (0 pt) Altered Elimination No (0 pt) Score/Fall Risk Level 0 - 2 = Low Risk. Abuse screen: Denies threats or abuse. Nutritional screening: No deficits noted. Tuberculosis screening: No symptoms or risk factors identified. Assessment: 02:30 Reassessment: Ring removed by MD from swollen finger, cap refill < 3 s on the finger, ke1 warm and good circulation. 03:29 Reassessment: Patient is alert, oriented x 3, equal unlabored respirations, skin ke1 warm/dry/pink. Patient denies pain at this time. Vital Signs: 02:04 BP 141 / 78; Pulse 89; Resp 17; Temp 98.7; Pulse Ox 94% on R/A; Weight 72.57 kg; Height ke1 5 ft. 6 in. (167.64 cm); Pain 0/10; 03:27 BP 127 / 72; Pulse 78; Resp 17; Pulse Ox 94% on R/A; Pain 0/10; ke1 02:04 Body Mass Index 25.82 (72.57 kg, 167.64 cm) ke1 ED Course: 01:53 Patient arrived in ED. ja2 02:02 Tony Rico DO is Attending Physician. ms3 02:03 Diogo Vera, KALIE is Primary Nurse. ke1 02:06 Triage completed. ke1 02:10 Arm band placed on left wrist. ke1 02:10 Bed in low position. Call light in reach. ke1 03:38 Hand Right 3 View XRAY In Process Unspecified. EDMS 04:03 Carlos Rich DO is Referral Physician. ms3 04:18 No provider procedures requiring assistance completed. Patient did not have IV access ll3 during this emergency room visit. Administered Medications: No medications were administered Medication: 02:10 VIS not applicable for this client. ke1 Outcome: 04:05 Discharge ordered by MD. ms3 04:18 Discharged to home ambulatory, with significant other. ll3 04:18 Condition: stable 04:18 Discharge instructions given to patient, significant other, Instructed on discharge instructions, follow up and referral plans. Demonstrated understanding of instructions, follow-up care. 04:18 Patient left the ED. ll3 Signatures: Dispatcher [employer] EDMS Tony Rico DO DO ms3 Lamar Camarena Lynsea, RN RN ll3 Diogo Vera RN RN ke1
--- NOTE | 2022-04-20 04:05 | EDPHYS ---
Physician Documentation [facility] Name: Feli Rae Age: 81 yrs Sex: Female : 1940 Arrival Date: 04/20/2022 Time: 01:53 Bed 13 Private MD: ED Physician Tony Rico HPI: 04/20 05:08 This 81 yrs old Female presents to ER via Ambulatory with complaints of Finger Injury. ms3 05:08 81-year-old female with past medical history of diabetes and hypertension presents for ms3 right ring finger swelling after stumbling and hitting a glass door with her hand. Patient denies pain.. Historical: - Allergies: 02:06 PENICILLINS; ke1 - PMHx: 02:06 Diabetes - NIDDM; Hypertension; ke1 - Immunization history:: Client reports receiving the 2nd dose of the Covid vaccine. - Social history:: Smoking status: Patient denies any tobacco usage or history of. ROS: 05:08 Constitutional: Negative for fever, and chills. Cardiovascular: Negative for chest ms3 pain, and palpitations. Respiratory: Negative for shortness of breath, cough, wheezing, and pleuritic chest pain, Abdomen/GI: Negative for abdominal pain, nausea, vomiting, diarrhea, and constipation. 05:08 MS/extremity: Positive for Swelling of right ring finger. 05:08 All other systems are negative. Exam: 05:08 Constitutional: This is a well developed, well nourished patient who is awake, alert, ms3 and in no acute distress. Head/Face: Normocephalic, atraumatic. Chest/axilla: Normal chest wall appearance and motion. Nontender with no deformity. Cardiovascular: Regular rate and rhythm with a normal S1 and S2. No gallops, murmurs, or rubs. Normal PMI, no JVD. No pulse deficits. Respiratory: Lungs have equal breath sounds bilaterally, clear to auscultation and percussion. No rales, rhonchi or wheezes noted. No increased work of breathing, no retractions or nasal flaring. Abdomen/GI: Soft, non-tender, with normal bowel sounds. No distension or tympany. No guarding or rebound. No evidence of tenderness throughout. 05:08 Musculoskeletal/extremity: Extremities: noted in the Right ring finger: contusion, swelling. Vital Signs: 02:04 BP 141 / 78; Pulse 89; Resp 17; Temp 98.7; Pulse Ox 94% on R/A; Weight 72.57 kg; Height ke1 5 ft. 6 in. (167.64 cm); Pain 0/10; 03:27 BP 127 / 72; Pulse 78; Resp 17; Pulse Ox 94% on R/A; Pain 0/10; ke1 02:04 Body Mass Index 25.82 (72.57 kg, 167.64 cm) ke1 Procedures: 05:08 Performed Ring removal. Right ring finger. Ring cut with ring cutter. Ring then spread ms3 with hemostats and removed without incident.. MDM: 02:17 Patient medically screened. ms3 05:08 Differential diagnosis: Fracture vs Contusion vs Ligamentous injury. Data reviewed: ms3 vital signs, nurses notes, radiologic studies, plain films, and as a result, I will discharge patient. Independent interpretation of the following test(s) in the Emergency Department X-Ray: My interpretation is Hand x ray image: No fracture present. Counseling: I had a detailed discussion with the patient and/or guardian regarding: the historical points, exam findings, and any diagnostic results supporting the discharge/admit diagnosis, radiology results, the need for outpatient follow up. ED course: Discussed x-ray findings with the patient and her . Patient to follow-up with her primary care physician as discussed. All questions were answered. Return precautions discussed include worsening symptoms, or any other concerns. On reevaluation swelling decreased after ring removal, patient states her finger feels better, sensation of right ring finger intact, cap refill less than 2 seconds in right ring finger.. 04/20 02:18 Order name: Hand Right 3 View XRAY ms3 Administered Medications: No medications were administered Disposition Summary: 04/20/22 04:05 Discharge Ordered Location: Home ms3 Condition: Stable ms3 Diagnosis - Contusion of right ring finger without damage to nail, initial encounter ms3 Followup: ms3 - With: Carlos Rich DO - When: 2 - 3 days - Reason: Recheck today's complaints Discharge Instructions: - Discharge Summary Sheet ms3 - Hand Contusion ms3 Forms: - Medication Reconciliation Form ms3 - Thank You Letter ms3 - Antibiotic Education ms3 - Prescription Opioid Use ms3 Signatures: Dispatcher [employer] EDTony Bose, DO DO ms3 Diogo Vera, RN RN ke1
[2022-04-20 04:44] VITALS: TEMP 98.7; O2SAT 94
[2022-04-20 04:46] VITALS: BP 127/72
--- NOTE | 2022-04-20 19:09 | RAD REPORT ---
EXAM DESCRIPTION: XR Right Hand Complete, 3 Views CLINICAL HISTORY: Pain TECHNIQUE: Frontal, lateral and oblique views of the right hand. COMPARISON: No relevant prior studies available. FINDINGS: Bones/joints: Osseous structures are osteopenic. No acute or remote fracture. Multil evel degenerative changes most pronounced, moderate to severe at the 3rd through 5th DIP articulation s. No dislocation. Soft tissues: Unremarkable. No radiopaque foreign body. IMPRESSION: No acute abnormality. Electronically signed by: Marisol Gibbons MD 04/20/2022 3:47 AM D[employer] WORKER Due to temporary technical issues with the PACS/Fluency reporting system, reports are being signed by the in house radiologists without review as a courtesy to insure prompt reporting. The interpreting radiologist is fully responsible for the content of the report.
== END 2022-04-20 04:18 | disposition home or self-care (01) ==
LOC: ER 01:46
DX: S60.041A Contusion of right ring finger without damage to nail, initial encounter (principal); I10 Essential (primary) hypertension; Z88.0 Allergy status to penicillin
CPT/HCPCS: 99283

== ENCOUNTER 2022-11-05 17:43 | Emergency (ER) | payer OTHER ==
--- OUTSIDE RECORDS SUMMARY | 2022-11-05 17:48 | XMS REPORT | Continuity of Care Document ---
:[address] [facility] t Address [address] [facility] [address] [place] [address] Care Team Providers Name Role Phone SINA MORALES Attending Clinician Unavailable Sarah Attending Clinician Unavailable SINA MORALES M.D. Attending Clinician Unavailable Sarah Admitting Clinician Unavailable Payers Payer Name Policy Type Policy Number Effective Date Expiration Date S ource MEDICARE PART A AND [id number] 2007 B 00:00:00 [employer] (MEDICARE [id number] 2022 REPLACEMENT PPO) 00:00:00 MEDICARE B-[place]: [id number] 2007 [employer] 00:00:00 [employer] [id number] 2017 2022 00:00:00 00:00:00 Problems Condition Condition Condition Status Onset Resolution Last Treating Co mments Source Name Details Category Date Date Treatment Clinician Date Tinea Tinea Problem Active [facility] - Family 00:00: Practic 00 e Overweight Overweight Problem Active [facility] 7-27 Family 00:00: Practic 00 e Hypercalce Hypercalce Problem Active [facility] pete pete 5-08 Family 00:00: Practic 00 e Body mass Body Mass Problem Active [facility] index Index 1-03 Family 25-29 - 25-29 - 00:00: Practic overweight Overweight 00 e Candidiasi Candidiasi Problem Active 2021-03 [facility] s of s of 0-03 Family vagina Vagina 00:00: Practic 00 e Hypertensi Hypertensi Problem Active [facility] ve ve 4-01 Family disorder Disorder 00:00: Practi c 00 e 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 Purpura 4-01 Family 00:00: Practic 00 e Mixed Mixed Problem Active [facility] hyperlipid Hyperlipid 2-04 Eden márquez emia emia 00:00: Practic 00 e 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 Polycythem 2-04 Eden márquez ia ia 00:00: Practic 00 e Obstructiv Obstructiv Problem Active [facility] e sleep e Sleep 2-04 Family apnea Apnea 00:00: Practic syndrome Syndrome 00 e Foot Foot Problem Active [facility] callus Callus 2-04 Family 00:00: Practic 00 e Blister Blister Problem Active [facility] 2-04 Family 00:00: Practic 00 e Elevated Elevated Problem Active [facility] blood-pres Blood-pres 1-07 Eden márquez sure sure 00:00: Practic reading Reading 00 e without without diagnosis Diagnosis of of hypertensi Hypertensi on on Type 2 Type 2 Problem Active [facility] diabetes Diabetes 1-07 Family mellitus Mellitus 00:00: Practi c 00 [...] Comments Source Exposure to SARS-CoV-2 Not sure [facility] (event) Sex Ass[birth year] At [birth year] [facility] 00:00:00 00:00:00 Smoking Status Start Date Stop Date Source Unknown if ever smoked [facility] Medications Ordered Filled Start Stop Current Ordering Indication Dosage Frequency Signature Comments Components Source Medication Medication Date Date Medication? Clinician (SIG) Name Name aspirin 81 aspirin 81 No aspirin 81 [facility] mg capsule mg capsule mg capsule Family Take two Take two Take two Pra ctic capsule capsule capsule e daily daily daily cetirizine cetirizine No cetirizine [facility] 10 mg 10 mg 10 mg Family tablet TAKE tablet TAKE tablet Practic 1 TABLET BY 1 TABLET BY TAKE 1 e MOUTH EVERY MOUTH EVERY TABLET BY DAY DAY MOUTH NEEDED FOR NEEDED FOR EVERY DAY CONGESTION CONGESTION NEEDED FOR CONGESTION Jardiance Jardiance No 1 Q1D Jardiance [facility] 10 mg 10 mg 10 mg Family tablet Take tablet Take tablet Practic 1 tablet 1 tablet Take 1 e every day every day tablet by oral by oral every day route in route in by oral the morning the morning route in for 30 for 30 the days. days. morning for 30 days. metoprolol metoprolol No metoprolol [facility] tartrate tartrate tartrate Fam giacomo 100 mg [...] TIMES A DAY OneTouch OneTouch No OneTouch [facility] Family Lancets 33 Lancets 33 Lancets 33 Practic gauge 3 gauge 3 gauge 3 e TIMES A DAY TIMES A DAY TIMES A DAY OneTouch OneTouch No 2strip( Q1D OneTouch [facility] Verio test Verio test s) Verio test [...] DAYS Trulicity Trulicity No 1.5mg Q1W Trulicity [facility] 1.5 mg/0.5 1.5 mg/0.5 1.5 mg/0.5 Family [...] for 30 days. valsartan valsartan No valsartan [facility] 80 mg 80 mg 80 mg Family [...] daily fluconazole fluconazole No 1 Q1D fluconazol [facility] 150 mg 150 mg e 150 mg Family tablet Take tablet Take tablet Practic 1 tablet 1 tablet Take 1 e every day every day tablet by oral by oral every day route for 3 route for 3 by oral days. days. route for 3 days. FreeStyle FreeStyle No FreeStyle [facility] Tomy 2 Tomy 2 Tomy 2 Family Sensor kit Sensor kit Sensor kit Practic USE USE USE e DIRECTED DIRECTED DIRECTED DAILY BUT DAILY BUT DAILY BUT CHANGE CHANGE CHANGE EVERY 14 EVERY 14 EVERY 14 DAYS. DAYS. DAYS. Jardiance Jardiance No Jardiance [facility] 10 mg 10 mg 10 mg Family tablet TAKE tablet TAKE tablet Practic 1 TABLET BY 1 TABLET BY TAKE 1 e MOUTH EVERY MOUTH EVERY TABLET BY DAY IN THE DAY IN THE MOUTH MORNING MORNING EVERY DAY IN THE MORNING metoprolol metoprolol No metoprolol [facility] tartrate tartrate tartrate Fam giacomo 100 mg 100 mg 100 mg Practic tablet TAKE tablet TAKE tablet e 1 TABLET BY 1 TABLET BY TAKE 1 MOUTH TWICE MOUTH TWICE TABLET BY A DAY A DAY MOUTH TWICE A DAY OneTouch OneTouch No OneTouch [facility] Family Lancets 33 Lancets 33 Lancets 33 Practic gauge 3 gauge 3 gauge 3 e TIMES A DAY TIMES A DAY TIMES A DAY OneTouch OneTouch No 2strip( Q1D OneTouch [facility] Verio test Verio test s) Verio test Family strips Take strips Take strips Practic 2 strips 2 strips Take 2 e every day every day strips by miscell. by miscell. every day route for route for by 90 days. 90 days. miscell. route for 90 days. Trulicity Trulicity No Trulicity [facility] 1.5 mg/0.5 1.5 mg/0.5 1.5 mg/0.5 Family [...] FOR 30 DAYS. valsartan valsartan No valsartan [facility] 80 mg 80 mg 80 mg Family [...] DAYS. Jardiance Jardiance No 1 Q1D Jardiance [facility] 10 mg 10 mg 10 mg Family tablet Take tablet Take tablet Practic 1 tablet 1 tablet Take 1 e every day every day tablet by oral by oral every day route in route in by oral the morning the morning route in for 30 for 30 the days. days. morning for 30 days. loteprednol loteprednol No lotepredno [facility] etabonate etabonate l Famil y 0.5 % eye 0.5 % eye etabonate Practic drops,suspe drops,suspe 0.5 % eye e nsion nsion drops,susp INSTILL ONE INSTILL ONE ension DROP EVERY DROP EVERY INSTILL 4 HOURS 4 HOURS ONE DROP INTO BOTH INTO BOTH EVERY 4 EYES FOR 7 EYES FOR 7 HOURS INTO DAYS DAYS BOTH EYES FOR 7 DAYS metoprolol metoprolol No metoprolol [facility] tartrate tartrate tartrate Fam giacomo 100 mg 100 mg 100 mg Practic tablet TAKE tablet TAKE tablet e 1 TABLET BY 1 TABLET BY TAKE 1 MOUTH TWICE MOUTH TWICE TABLET BY A DAY A DAY MOUTH TWICE A DAY OneTouch OneTouch No OneTouch [facility] Family Lancets 33 Lancets 33 Lancets 33 Practic gauge 3 gauge 3 gauge 3 e TIMES A DAY TIMES A DAY TIMES A DAY OneTouch OneTouch No 2strip( Q1D OneTouch [facility] Verio test Verio test s) Verio test [...] for 30 days. valsartan valsartan No valsartan [facility] 80 mg 80 mg 80 mg Family [...] capsule capsule capsule e daily daily daily doxycycline doxycycline No doxycyclin [facility] hyclate 100 hyclate 100 e hyclate Family mg capsule mg capsule 100 mg P ractic capsule e FreeStyle FreeStyle No FreeStyle [facility] Tomy 14 Tomy 14 Tomy 14 Fam giacomo Day Sensor Day Sensor Day Sensor Practic kit CHANGE kit CHANGE kit CHANGE e EVERY 14 EVERY 14 EVERY 14 DAYS DAYS DAYS Jardiance Jardiance No Jardiance [facility] 10 mg 10 mg 10 mg Family tablet TAKE tablet TAKE tablet Practic 1 TABLET BY 1 TABLET BY TAKE 1 e MOUTH EVERY MOUTH EVERY TABLET BY DAY IN THE DAY IN THE MOUTH MORNING MORNING EVERY DAY IN THE MORNING loteprednol loteprednol No lotepredno [facility] etabonate etabonate l Famil y 0.5 % eye 0.5 % eye etabonate Practic drops,suspe drops,suspe 0.5 % eye e nsion nsion drops,susp INSTILL ONE INSTILL ONE ension DROP EVERY DROP EVERY INSTILL 4 HOURS 4 HOURS ONE DROP INTO BOTH INTO BOTH EVERY 4 EYES FOR 7 EYES FOR 7 HOURS INTO DAYS DAYS BOTH EYES FOR 7 DAYS metoprolol metoprolol No metoprolol [facility] tartrate tartrate tartrate Fam giacomo 100 mg 100 mg 100 mg Practic tablet TAKE tablet TAKE tablet e 1 TABLET BY 1 TABLET BY TAKE 1 MOUTH TWICE MOUTH TWICE TABLET BY A DAY A DAY MOUTH TWICE A DAY Ozempic Ozempic No .5mg Q1W Ozempic [facility] 0.25 mg or 0.25 mg or 0.25 mg or Family 0.5 mg (2 0.5 mg (2 0.5 mg (2 Practic mg/1.5 mL) mg/1.5 mL) mg/1.5 mL) e subcutaneou subcutaneou subcutaneo s pen s pen us pen injector injector injector Inject 0.5 Inject 0.5 Inject 0.5 mg every mg every mg every week by week by week by subcutaneou subcutaneou subcutaneo s route for s route for us route 30 days. 30 days. for 30 days. Trulicity Trulicity No Trulicity [facility] 1.5 mg/0.5 1.5 mg/0.5 1.5 mg/0.5 Family mL mL mL Practic subcutaneou subcutaneou subcutaneo e s pen s pen us pen injector injector injector INJECT 1.5 INJECT 1.5 INJECT 1.5 MG EVERY MG EVERY MG EVERY WEEK BY WEEK BY WEEK BY SUBCUTANEOU SUBCUTANEOU SUBCUTANEO S ROUTE FOR S ROUTE FOR US ROUTE 30 DAYS. 30 DAYS. FOR 30 DAYS. valsartan valsartan No valsartan [facility] 80 mg 80 mg 80 mg Family [...] capsule capsule capsule e daily daily daily doxycycline doxycycline No doxycyclin [facility] hyclate 100 hyclate 100 e hyclate Family mg capsule mg capsule 100 mg P ractic capsule e FreeStyle FreeStyle No FreeStyle [facility] Tomy 14 Tomy 14 Tomy 14 Fam giacomo Day Sensor Day Sensor Day Sensor Practic kit CHANGE kit CHANGE kit CHANGE e EVERY 14 EVERY 14 EVERY 14 DAYS DAYS DAYS Jardiance Jardiance No Jardiance [facility] 10 mg 10 mg 10 mg Family tablet TAKE tablet TAKE tablet Practic 1 TABLET BY 1 TABLET BY TAKE 1 e MOUTH EVERY MOUTH EVERY TABLET BY DAY IN THE DAY IN THE MOUTH MORNING MORNING EVERY DAY IN THE MORNING loteprednol loteprednol No lotepredno [facility] etabonate etabonate l Famil y 0.5 % eye 0.5 % eye etabonate Practic drops,suspe drops,suspe 0.5 % eye e nsion nsion drops,susp INSTILL ONE INSTILL ONE ension DROP EVERY DROP EVERY INSTILL 4 HOURS 4 HOURS ONE DROP INTO BOTH INTO BOTH EVERY 4 EYES FOR 7 EYES FOR 7 HOURS INTO DAYS DAYS BOTH EYES FOR 7 DAYS metoprolol metoprolol No metoprolol [facility] tartrate tartrate tartrate Fam giacomo 100 mg 100 mg 100 mg Practic tablet TAKE tablet TAKE tablet e 1 TABLET BY 1 TABLET BY TAKE 1 MOUTH TWICE MOUTH TWICE TABLET BY A DAY A DAY MOUTH TWICE A DAY Ozempic Ozempic No .5mg Q1W Ozempic [facility] 0.25 mg or 0.25 mg or 0.25 mg or Family 0.5 mg (2 0.5 mg (2 0.5 mg (2 Practic mg/1.5 mL) mg/1.5 mL) mg/1.5 mL) e subcutaneou subcutaneou subcutaneo s pen s pen us pen injector injector injector Inject 0.5 Inject 0.5 Inject 0.5 mg every mg every mg every week by week by week by subcutaneou subcutaneou subcutaneo s route for s route for us route 30 days. 30 days. for 30 days. Trulicity Trulicity No Trulicity [facility] 1.5 mg/0.5 1.5 mg/0.5 1.5 mg/0.5 Family mL mL mL Practic subcutaneou subcutaneou subcutaneo e s pen s pen us pen injector injector injector INJECT 1.5 INJECT 1.5 INJECT 1.5 MG EVERY MG EVERY MG EVERY WEEK BY WEEK BY WEEK BY SUBCUTANEOU SUBCUTANEOU SUBCUTANEO S ROUTE FOR S ROUTE FOR US ROUTE 30 DAYS. 30 DAYS. FOR 30 DAYS. valsartan valsartan No valsartan [facility] 80 mg 80 mg 80 mg Family [...] capsule capsule capsule e daily daily daily doxycycline doxycycline No doxycyclin [facility] hyclate 100 hyclate 100 e hyclate Family mg capsule mg capsule 100 mg P ractic capsule e FreeStyle FreeStyle No FreeStyle [facility] Tomy 14 Tomy 14 Tomy 14 Fam giacomo Day Sensor Day Sensor Day Sensor Practic kit CHANGE kit CHANGE kit CHANGE e EVERY 14 EVERY 14 EVERY 14 DAYS DAYS DAYS Jardiance Jardiance No Jardiance [facility] 10 mg 10 mg 10 mg Family tablet TAKE tablet TAKE tablet Practic 1 TABLET BY 1 TABLET BY TAKE 1 e MOUTH EVERY MOUTH EVERY TABLET BY DAY IN THE DAY IN THE MOUTH MORNING MORNING EVERY DAY IN THE MORNING loteprednol loteprednol No lotepredno [facility] etabonate etabonate l Famil y 0.5 % eye 0.5 % eye etabonate Practic drops,suspe drops,suspe 0.5 % eye e nsion nsion drops,susp INSTILL ONE INSTILL ONE ension DROP EVERY DROP EVERY INSTILL 4 HOURS 4 HOURS ONE DROP INTO BOTH INTO BOTH EVERY 4 EYES FOR 7 EYES FOR 7 HOURS INTO DAYS DAYS BOTH EYES FOR 7 DAYS metoprolol metoprolol No metoprolol [facility] tartrate tartrate tartrate [facility] giacomo 100 mg 100 mg 100 mg Practic tablet TAKE tablet TAKE tablet e 1 TABLET BY 1 TABLET BY TAKE 1 MOUTH TWICE MOUTH TWICE TABLET BY A DAY A DAY MOUTH TWICE A DAY Ozempic Ozempic No .5mg Q1W Ozempic [facility] 0.25 mg or 0.25 mg or 0.25 mg or Family 0.5 mg (2 0.5 mg (2 0.5 mg (2 Practic mg/1.5 mL) mg/1.5 mL) mg/1.5 mL) e subcutaneou subcutaneou subcutaneo s pen s pen us pen injector injector injector Inject 0.5 Inject 0.5 Inject 0.5 mg every mg every mg every week by week by week by subcutaneou subcutaneou subcutaneo s route for s route for us route 30 days. 30 days. for 30 days. Trulicity Trulicity No Trulicity [facility] 1.5 mg/0.5 1.5 mg/0.5 1.5 mg/0.5 Family mL mL mL Practic subcutaneou subcutaneou subcutaneo e s pen s pen us pen injector injector injector INJECT 1.5 INJECT 1.5 INJECT 1.5 MG EVERY MG EVERY MG EVERY WEEK BY WEEK BY WEEK BY SUBCUTANEOU SUBCUTANEOU SUBCUTANEO S ROUTE FOR S ROUTE FOR US ROUTE 30 DAYS. 30 DAYS. FOR 30 DAYS. valsartan valsartan No valsartan [facility] 80 mg 80 mg 80 mg Family [...] capsule capsule capsule e daily daily daily doxycycline doxycycline No doxycyclin [facility] hyclate 100 hyclate 100 e hyclate Family mg capsule mg capsule 100 mg P ractic capsule e fluconazole fluconazole No 1 Q1D fluconazol [facility] 150 mg 150 mg e 150 mg Family tablet Take tablet Take tablet Practic 1 tablet 1 tablet Take 1 e every day every day tablet by oral by oral every day route for 3 route for 3 by oral days. days. route for 3 days. FreeStyle FreeStyle No FreeStyle [facility] Tomy 14 Tomy 14 Tomy 14 Fam giacomo Day Sensor Day Sensor Day Sensor Practic kit CHANGE kit CHANGE kit CHANGE e EVERY 14 EVERY 14 EVERY 14 DAYS DAYS DAYS Jardiance Jardiance No 1 Q1D Jardiance [facility] 10 mg 10 mg 10 mg Family tablet Take tablet Take tablet Practic 1 tablet 1 tablet Take 1 e every day every day tablet by oral by oral every day route in route in by oral the morning the morning route in for 30 for 30 the days. days. morning for 30 days. ketoconazol ketoconazol No ketoconazo [facility] e 2 % e 2 % le 2 % Family topical topical topical Practi c cream APPLY cream APPLY cream e TO THE TO THE APPLY TO AFFECTED AFFECTED THE AREA(S) BY AREA(S) BY AFFECTED TOPICAL TOPICAL AREA(S) BY ROUTE ONCE ROUTE ONCE TOPICAL DAILY DAILY ROUTE ONCE DAILY loteprednol loteprednol No lotepredno [facility] etabonate etabonate l Famil y 0.5 % eye 0.5 % eye etabonate Practic drops,suspe drops,suspe 0.5 % eye e nsion nsion drops,susp INSTILL ONE INSTILL ONE ension DROP EVERY DROP EVERY INSTILL 4 HOURS 4 HOURS ONE DROP INTO BOTH INTO BOTH EVERY 4 EYES FOR 7 EYES FOR 7 HOURS INTO DAYS DAYS BOTH EYES FOR 7 DAYS metoprolol metoprolol No metoprolol [facility] tartrate tartrate tartrate Fam giacomo 100 mg 100 mg 100 mg Practic tablet TAKE tablet TAKE tablet e 1 TABLET BY 1 TABLET BY TAKE 1 MOUTH TWICE MOUTH TWICE TABLET BY A DAY A DAY MOUTH TWICE A DAY Ozempic Ozempic No .5mg Q1W Ozempic [facility] 0.25 mg or 0.25 mg or 0.25 mg or Family 0.5 mg (2 0.5 mg (2 0.5 mg (2 Practic mg/1.5 mL) mg/1.5 mL) mg/1.5 mL) e subcutaneou subcutaneou subcutaneo s pen s pen us pen injector injector injector Inject 0.5 Inject 0.5 Inject 0.5 mg every mg every mg every week by week by week by subcutaneou subcutaneou subcutaneo s route for s route for us route 30 days. 30 days. for 30 days. Ozempic Ozempic No Ozempic [facility] 0.25 mg or 0.25 mg or 0.25 mg or Family 0.5 mg (2 0.5 mg (2 0.5 mg (2 Practic mg/3 mL) mg/3 mL) mg/3 mL) e subcutaneou subcutaneou subcutaneo s pen s pen us pen injector injector injector INJECT 0.5 INJECT 0.5 INJECT 0.5 MG MG MG SUBCUTANEOU SUBCUTANEOU SUBCUTANEO SLY EVERY SLY EVERY USLY EVERY WEEK WEEK WEEK valsartan valsartan No valsartan [facility] 80 mg 80 mg 80 mg Family tablet TAKE tablet TAKE tablet Practic 1 TABLET BY 1 TABLET BY TAKE 1 e MOUTH EVERY MOUTH EVERY TABLET BY DAY FOR 30 DAY FOR 30 MOUTH DAYS DAYS EVERY DAY FOR 30 DAYS Immunizations Ordered Immunization Filled Immunization Date Status Commmargaret ts Source Name Name COVID-19, mRNA, COVID-19, mRNA, 2020-12-03 Completed [facility] LNP-S, PF, 30 LNP-S, PF, 30 00:00:00 Practice mcg/0.3 mL dose mcg/0.3 mL dose (Pfizer-BioNTech) - (Pfizer-BioNTech) - ML ML COVID-19, mRNA, COVID-19, mRNA, 2020-12-03 Completed [facility] Family LNP-S, PF, 30 LNP-S, PF, 30 00:00:00 Practice mcg/0.3 mL dose mcg/0.3 mL dose (Pfizer-BioNTech) - (Pfizer-BioNTech) - ML ML COVID-19, mRNA, COVID-19, mRNA, 2020-12-03 Completed [facility] Family LNP-S, PF, 30 LNP-S, PF, 30 00:00:00 Practice mcg/0.3 mL dose mcg/0.3 mL dose (Pfizer-BioNTech) - (Pfizer-BioNTech) - ML ML COVID-19, mRNA, COVID-19, mRNA, 2020-12-03 Completed [facility] Family LNP-S, PF, 30 LNP-S, PF, 30 00:00:00 Practice mcg/0.3 mL dose mcg/0.3 mL dose (Pfizer-BioNTech) - (Pfizer-BioNTech) - ML ML Non-US Vaccine Non-US Vaccine 2020-11-13 Completed [facility] [...] IV COVID-19 IV 00:00:00 Practice (COVAXIN) (COVAXIN) COVID-19, mRNA, COVID-19, mRNA, 2020-05-03 Completed [facility] Family LNP-S, PF, 30 LNP-S, PF, 30 00:00:00 Practice mcg/0.3 mL dose mcg/0.3 mL dose (Pfizer-BioNTech) - (Pfizer-BioNTech) - ML ML Non-US Vaccine Non-US Vaccine 2020-05-03 Completed [facility] COVID-19 IV COVID-19 IV 00:00:00 Practice (COVAXIN) (COVAXIN) COVID-19, mRNA, COVID-19, mRNA, 2020-05-03 Completed [facility] Family LNP-S, PF, 30 LNP-S, PF, 30 00:00:00 Practice mcg/0.3 mL dose mcg/0.3 mL dose (Pfizer-BioNTech) - (Pfizer-BioNTech) - ML ML Non-US Vaccine Non-US Vaccine 2020-05-03 Completed [facility] COVID-19 IV COVID-19 IV 00:00:00 Practice (COVAXIN) (COVAXIN) COVID-19, mRNA, COVID-19, mRNA, 2020-05-03 Completed [facility] Family LNP-S, PF, 30 LNP-S, PF, 30 00:00:00 Practice mcg/0.3 mL dose mcg/0.3 mL dose (Pfizer-BioNTech) - (Pfizer-BioNTech) - ML ML Non-US Vaccine Non-US Vaccine 2020-05-03 Completed [facility] COVID-19 IV COVID-19 IV 00:00:00 Practice (COVAXIN) (COVAXIN) COVID-19, mRNA, COVID-19, mRNA, 2020-05-03 Completed [facility] Family LNP-S, PF, 30 LNP-S, PF, 30 00:00:00 Practice mcg/0.3 mL dose mcg/0.3 mL dose (Pfizer-BioNTech) - (Pfizer-BioNTech) - ML ML Non-US Vaccine Non-US Vaccine 2020-05-03 Completed Vill[facility] [...] IV COVID-19 IV 00:00:00 Practice (COVAXIN) (COVAXIN) COVID-19, mRNA, COVID-19, mRNA, 2020-04-12 Completed [facility] LNP-S, PF, 30 LNP-S, PF, 30 00:00:00 Practice mcg/0.3 mL dose mcg/0.3 mL dose (Pfizer-BioNTech) - (Pfizer-BioNTech) - ML ML Non-US Vaccine Non-US Vaccine 2020-04-12 Completed [facility] COVID-19 IV COVID-19 IV 00:00:00 Practice (COVAXIN) (COVAXIN) COVID-19, mRNA, COVID-19, mRNA, 2020-04-12 Completed [facility] LNP-S, PF, 30 LNP-S, PF, 30 00:00:00 Practice mcg/0.3 mL dose mcg/0.3 mL dose (Pfizer-BioNTech) - (Pfizer-BioNTech) - ML ML Non-US Vaccine Non-US Vaccine 2020-04-12 Completed [facility] COVID-19 IV COVID-19 IV 00:00:00 Practice (COVAXIN) (COVAXIN) COVID-19, mRNA, COVID-19, mRNA, 2020-04-12 Completed [facility] LNP-S, PF, 30 LNP-S, PF, 30 00:00:00 Practice mcg/0.3 mL dose mcg/0.3 mL dose (Pfizer-BioNTech) - (Pfizer-BioNTech) - ML ML Non-US Vaccine Non-US Vaccine 2020-04-12 Completed [facility] COVID-19 IV COVID-19 IV 00:00:00 Practice (COVAXIN) (COVAXIN) COVID-19, mRNA, COVID-19, mRNA, 2020-04-12 Completed [facility] Family LNP-S, PF, 30 LNP-S, PF, 30 00:00:00 Practice mcg/0.3 mL dose mcg/0.3 mL dose (Pfizer-BioNTech) - (Pfizer-BioNTech) - ML ML Non-US Vaccine Non-US Vaccine 2020-04-12 Completed [facility] COVID-19 IV COVID-19 IV 00:00:00 Practice (COVAXIN) (COVAXIN) Vital Signs Vital Name Observation Time Observation Value Comments Source BP Diastolic 2022-10-02 00:00:00 84 mm[Hg] [facility] Height 2022-10-02 00:00:00 66 [in_i] [facility] BMI (Body Mass 2022-10-02 00:00:00 26 kg/m2 [facility] Index) Practice BP Systolic 2022-10-02 00:00:00 143 mm[Hg] [facility] Body Weight 2022-10-02 00:00:00 161 [lb_av] [facility] BP Diastolic 2022-07-02 00:00:00 87 mm[Hg] [facility] Height 2022-07-02 00:00:00 66 [in_i] [facility] BMI (Body Mass 2022-07-02 00:00:00 26.3 kg/m2 [facility] Index) Practice BP Systolic 2022-07-02 00:00:00 154 mm[Hg] [facility] Body Weight 2022-07-02 00:00:00 162.8 [lb_av] [facility] BP Diastolic 2022-03-11 00:00:00 82 mm[Hg] [facility] [...] Practice BP Systolic 2021-06-07 00:00:00 157 mm[Hg] [facility] Body Weight 2021-06-07 00:00:00 165 [lb_av] [facility] Practice BP Diastolic 2021-04-12 00:00:00 91 mm[Hg] [facility] Height 2021-04-12 00:00:00 66 [in_i] [facility] BMI (Body Mass 2021-04-12 00:00:00 27.1 kg/m2 [facility] Family Index) Practice BP Systolic 2021-04-12 00:00:00 160 mm[Hg] [facility] Body Weight 2021-04-12 00:00:00 168 [lb_av] [facility] Practice BP Diastolic 2021-03-15 00:00:00 94 mm[Hg] [facility] Height 2021-03-15 00:00:00 66 [in_i] [facility] BMI (Body Mass 2021-03-15 00:00:00 28.1 kg/m2 [facility] Family Index) Practice BP Systolic 2021-03-15 00:00:00 182 mm[Hg] [facility] Body Weight 2021-03-15 00:00:00 174 [lb_av] [facility] Procedures Procedure Date / Time Performed Performing Clinician [facility] home sleep study 2022-03-11 00:00:00 [facility] home sleep study 2021-09-12 00:00:00 [facility] home sleep study 2021-06-07 00:00:00 [facility] home sleep study 2021-04-12 00:00:00 [facility] XR CERVICAL SPINE 2-3 2020-08-02 19:51:02 [facility] TH[facility]AC[facility] SP[facility] 3 2020-08-02 19:51:02 [facility] 2020-04-09 [facility] 2020-03-08 [facility] 2020-02-24 00:00:00 [facility] Hern[facility] Rep[facility] Section [facility] Plan of Care Planned Activity Planned Date Details Comments Source Diagnostic Test 2022-10-02 glucose, fingerstick, [facility]a [facility] Family Pending 00:00:00 blood [code = Practice glucose, fingerstick, blood] Diagnostic Test 2022-10-02 hemoglobin A1C, [facility] Pending 00:00:00 fingerstick [code = Practice hemoglobin A1C, fingerstick] Future Appointment 2023-01-02 Eleazar Coronado, Melissa Ruiz 11:00:[address] Practice [address], [place] [address] Future Appointment 2023-01-02 Eleazar Coronado, Melissa [facility] 00:00:[address] Practice [address], [place] [address] Encounters Start End Encounter Admission Attending Care Care Encounter Source Date/Time Date/Time Type Type Clinicians Facility Department ID 2021-07-17 Outpatient [facility] [id number] [place] 15:11:16 [id number] [facility] 2021-01-29 Outpatient LADOR, SINA [facility] [id number] [place] 15:04:09 [facility] 2021-01-29 Outpatient [facility] [id number] [place] 15:03:16 [facility] 2021-01-29 Outpatient [facility] [id number] [place] 15:03:16 [facility] 2020-08-02 Outpatient LADOR, SINA [facility] [id number] [place] 15:34:14 Health 2020-08-02 Outpatient [facility] [id number] [place] 14:29:13 [facility] 2020-07-14 Outpatient LADOR, RAN [facility] [id number] [place] 03:06:58 Health 2022-10-02 2022-10-02 Outpatient Daniel_T_HO VFP VFP 200 [id number] [facility] 00:00:00 00:00:00 DEBRA [id number] Family Practic e 2022-10-02 2022-10-02 Outpatient Daniel_T_HO VFP VFP 200 [id number] [facility] 00:00:00 00:00:00 DEBRA [id number] Family Practic e 2022-10-02 2022-10-02 Eleazar VFP [place] - [id number] V illage 00:00:00 00:00:00 Kristie [facility] CoronadoBlu - Kusum madera MD: [id number] [place] - e Shadow VM_HOU_Shad [place] [address] [place], [address], [place] [address] , Ph. 2022-07-31 2022-07-31 Outpatient Daniel_T VFP VFP [address] [place] [address] 00:00:00 00:00:00 [id number] Family Practic e 2022-07-02 2022-07-02 Outpatient Daniel_T VFP VFP [address] [place] [address] 00:00:00 00:00:00 [id number] Family Practic e 2022-07-02 2022-07-02 Outpatient Daniel_T VFP VFP [address] [place] [address] 00:00:00 00:00:00 [id number] Family Practic e 2022-07-02 2022-07-02 Eleazar VFP [place] - [id number] V illage 00:00:00 00:00:00 [facility] CoronadoBlu - Kusum madera MD: [id number] [place] - e Shadow VM_HOU_[facility], [address] [address] , Ph. 2022-06-29 2022-06-29 Outpatient Daniel_T VFP VFP [address] [place] [address] 00:00:00 00:00:00 [id number] Family Practic e 2022-06-18 2022-06-18 Outpatient Daniel_T VFP VFP [address] [place] [address] 00:00:00 00:00:00 [id number] Family Practic e 2022-05-14 2022-05-14 Outpatient Daniel_T VFP VFP [address] [place] [address] 00:00:00 00:00:00 [id number] Family Practic e 2022-03-11 2022-03-11 Outpatient Daniel_T VFP VFP [address] [place] [address] 00:00:00 00:00:00 [id number] Family Practic e 2022-03-11 2022-03-11 Outpatient Daniel_T VFP VFP [address] [place] [address] 00:00:00 00:00:00 [id number] Family Practic e 2022-03-11 2022-03-11 Outpatient Daniel_T VFP VFP [address] [place] [address] 00:00:00 00:00:00 [id number] Family Practic e 2022-03-11 2022-03-11 Eleazar VFP [place] - [id number] V illage 00:00:00 00:00[facility]00 [facility] CoronadoBlu MD: [id number] [place] - e Shadow [facility], [facility] [address] [address] , Ph. 2022-03-09 2022-03-09 Outpatient Daniel_T VFP VFP [address] [place] [address] 00:00:00 00:00:00 [id number] Family Practic e 2022-03-07 2022-03-07 Outpatient Daniel_T VFP VFP [address] [place] [address] 00:00:00 00:00:00 [id number] Family Practic e 2021-12-09 2021-12-09 Outpatient Daniel_T VFP VFP [id number] [place] [id number] 00:00:00 00:00:00 [id number] Family Practic e 2021-12-09 2021-12-09 Eleazar VFP [place] - [id number] V illage 00:00:00 00:00:00 [facility] Family CoronadoBlu MD: [id number] [place] - e Shadow [facility], [facility] [address] [address] , Ph. 2021-12-05 2021-12-05 Outpatient Daniel_T VFP VFP [id number] [place] [id number] 00:00:00 00:00:00 [id number] Family Practic e 2021-12-04 2021-12-04 Outpatient Daniel_T VFP VFP [address] [place] [address] 00:00:00 00:00:00 [id number] Family Practic e 2021 2021 Outpatient Daniel_T VFP VFP [id number] [place] [id number] 11:27:00 11:27:00 [id number] Family Practic e 2021-09-12 2021-09-12 Outpatient Daniel_T VFP VFP [id number] [place] [address] 04:27:00 04:27:00 [id number] Family Practic e 2021-09-12 2021-09-12 Eleazar VFP [place] - [id number] V illage 00:00:00 00:00:00 [facility] CoronadoBlu MD: [id number] HELLEN_RAFAEL_Donaldo jacob [facility], [address] [address] , Ph. 2021-09-03 2021-09-03 Outpatient Daniel_T VFP VFP [address] [place] [address] 01:42:00 01:42:00 [id number] Family Practic e 2021-09-03 2021-09-03 Outpatient Daniel_T VFP VFP [address] [place] [address] 01:42:00 01:42:00 [id number] Family Practic e 2021-07-31 2021-07-31 Outpatient Daniel_T VFP VFP [address] [place] [address] 04:11:00 04:11:00 [id number] Family Practic e 2021-06-13 2021-06-13 Outpatient Daniel_T VFP VFP [address] [place] [address] 05:32:00 05:32:00 [id number] Family Practic e 2021-06-07 2021-06-07 Outpatient Daniel_T VFP VFP [address] [place] [address] 03:34:00 03:34:00 [id number] Family Practic e 2021-06-07 2021-06-07 Eleazar VFP [place] - [id number] V illage 00:00:00 00:00:00 [facility] Family CoronadoBlu MD: [id number] DANITA_Donaldo jacob Shadow [facility], [address] [address] , Ph. 2021-05-21 2021-05-21 Outpatient Daniel_T VFP VFP [address] [place] [address] 03:41:00 03:41:00 [id number] Family Practic e 2021-04-15 2021-04-15 Outpatient Daniel_T VFP VFP [address] [place] [address] 06:44:00 06:44:00 [id number] Family Practic e 2021-04-12 2021-04-12 Outpatient Daniel_T VFP VFP [address] [place] [address] 03:46:00 03:46:00 [id number] Family Practic e 2021-04-12 2021-04-12 Eleazar VFP [place] - [id number] V illage 00:00:00 00:00:00 [facility] - Practi santy MD: [id number] VM_HOU_Shad e Shadow [facility], [address] [address] , Ph. 2021-04-08 2021-04-08 Outpatient Daniel_T VFP VFP [address] [place] [address] 05:38:00 05:38:00 [id number] Family Practic e 2021-03-22 2021-03-22 Outpatient Daniel_T VFP VFP [address] [place] [address] 09:30:00 09:30:00 [id number] Family Practic e 2021-03-15 2021-03-15 Outpatient Daniel_T VFP VFP [address] [place] [address] 12:13:00 12:13:00 [id number] Family Practic e 2021-03-15 2021-03-15 Eleazar VFP [place] - [id number] V illage 00:00:00 00:00:00 [facility] Family Coronado Blu - Pracpreet madera MD: [id number] HELLEN_HOU_Avilad e Shadow [facility], [address] [address] , Ph. 2021-03-11 2021-03-11 Outpatient Daniel_T VFP VFP [address] [place] [address] 03:32:00 03:32:00 [id number] Family Practic e 2021-02-06 2021-02-06 Outpatient Daniel_T VFP VFP [address] [place] [address] 10:35:00 10:35:00 [id number] Family Practic e 2020-08-02 2020-08-02 Office Sina Morales 6400 [id number] [place] 14:02:53 15:32:57 Visit KOBY [id number] Health [id number] 2020-04-03 2020-04-03 Appointmen SINA MORALES [facility] [id number] [place] 12:30:00 12:30:00 t; Franck MORALES at [facility] geeta ANDINO M.D. [facility] [place] [facility] 2020-02-24 2020-02-24 Appointmen SINA MORALESTOÑITO [facility] [id number] [place] 12:00:00 12:00:00 t; Franck MORALES Phys christiano ANDINO M.D. ans Results Test Description Test Time Test Comments Results Result Comments Source Hemoglobin A1c measurement device panel 2022-10-02 11:13:36 Test Item Value Reference Range Interpretation Comme nts Hemoglobin A1c/Hemoglobin.total in Blood (test code = 4548-4) 7.4 % 4.0-6.4 [facility] PracticeGlucose [Mass/volume] in Capillary [id number] 11:03:28 Test Item Value Reference Range Interpretation Comments Blood Glucose: mg/dl (test code = Blood 185 Glucose: mg/dl) [facility] PracticeHemoglobin A1c measurement device [id number] 11:27:44 Test Item Value Reference Range Interpretation Comments Hemoglobin A1c/Hemoglobin.total in 7.2 % 4.0-5.6 Blood (test code = 4548-4) [facility] PracticeHemoglobin A1c measurement device [id number] 11:27:44 Test Item Value Reference Range Interpretation Comments Hemoglobin A1c/Hemoglobin.total in 7.2 % 4.0-5.6 Blood (test code = 4548-4) [facility] PracticeHemoglobin A1c measurement device [id number] 11:27:44 Test Item Value Reference Range Interpretation Comments Hemoglobin A1c/Hemoglobin.total in 7.2 % 4.0-5.6 Blood (test code = 4548-4) [facility] PracticeGlucose [Mass/volume] in Capillary [id number] 11:22:26 Test Item Value Reference Range Interpretation Comments Blood Glucose: mg/dl (test code = Blood 142 Glucose: mg/dl) [facility] PracticeGlucose [Mass/volume] in Capillary [id number] 11:22:26 Test Item Value Reference Range Interpretation Comments Blood Glucose: mg/dl (test code = Blood 142 Glucose: mg/dl) [facility] PracticeGlucose [Mass/volume] in Capillary [id number] 11:22:26 Test Item Value Reference Range Interpretation Comments Blood Glucose: mg/dl (test code = Blood 142 Glucose: mg/dl) [facility] PracticeHemoglobin A1c measurement device [id number] 15:25:56 Test Item Value Reference Range Interpretation Comments Hemoglobin A1c/Hemoglobin.total in 7.5 % 5.7-6.4 Blood (test code = 4548-4) [facility] PracticeGlucose [Mass/volume] in Capillary [id number] 15:22:08 Test Item Value Reference Range Interpretation Comments Blood Glucose: mg/dl (test code = Blood 156 Glucose: mg/dl) [facility] PracticeHemoglobin A1c measurement device [id number] 15:29:41 Test Item Value Reference Range Interpretation Comments Hemoglobin A1c/Hemoglobin.total in 7.2 % 5.7-6.4 Blood (test code = 4548-4) [facility] PracticeGlucose [Mass/volume] in Capillary [id number] 15:27:23 Test Item Value Reference Range Interpretation Comments Blood Glucose: mg/dl (test code = Blood 124 Glucose: mg/dl) [facility] PracticeHemoglobin A1c measurement device [id number] 14:09:08 Test Item Value Reference Range Interpretation Comments Hemoglobin A1c/Hemoglobin.total in 7.8 % 5.7-6.4 Blood (test code = 4548-4) [facility] PracticeGlucose [Mass/volume] in Capillary [id number] 14:08:57 Test Item Value Reference Range Interpretation Comments Blood Glucose: mg/dl (test code = Blood 191 Glucose: mg/dl) [facility] PracticeHemoglobin A1c measurement device [id number] 14:01:14 Test Item Value Reference Range Interpretation Comments Hemoglobin A1C Fingerstick: (test code 7.4 = Hemoglobin A1C Fingerstick:) [facility] PracticeHemoglobin A1c measurement device [id number] 14:01:14 Test Item Value Reference Range Interpretation Comments Hemoglobin A1C Fingerstick: (test code 7.4 = Hemoglobin A1C Fingerstick:) [facility] PracticeGlucose [Mass/volume] in Capillary [id number] 13:59:15 Test Item Value Reference Range Interpretation Comments Blood Glucose: mg/dl (test code = Blood 132 Glucose: mg/dl) [facility] PracticeGlucose [Mass/volume] in Capillary [id number] 13:59:15 Test Item Value Reference Range Interpretation Comments Blood Glucose: mg/dl (test code = Blood 132 Glucose: mg/dl) [facility] [id number] 09:58:19 Test Item Value Reference Range Interpretation Comments Hemoglobin A1C Fingerstick: (test code 8.4 = Hemoglobin A1C Fingerstick:) [facility] [id number] 09:58:19 Test Item Value Reference Range Interpretation Comments Hemoglobin A1C Fingerstick: (test code 8.4 = Hemoglobin A1C Fingerstick:) [facility]Mass/volume] in Capillary [id number] 09:58:12 Test Item Value Reference Range Interpretation Comments Blood Glucose: mg/dl (test code = Blood 292 Glucose: mg/dl) [facility]Mass/volume] in Capillary [id number] 09:58:12 Test Item Value Reference Range Interpretation Comments Blood Glucose: mg/dl (test code = Blood 292 Glucose: mg/dl) [facility] 3 [id number] 20:32:56X-rays performed to the thoracic spine in AP and lateral views which were reviewed by myself and compared to previous imaging show normal alignment of the thoracic spine and normal position of all screws and hardware.[facility] cervical spine 2 or 3 [id number] 20:32:38Extrapulmonary in the cervical and thoracic spine including AP, lateral and open-mouth views which were reviewed by myself and compared to previous imaging show normal position of all hardware and normal alignment of the cervical thoracic spine.[facility][U] XRAY SPINE CERVICAL 2 OR 3 [id number] [id number] 12:55:00Images acquired, not reported on this accession number.[facility][U] XRAY SPINE THORACIC 2 VWS [id number] 12:55:00Images acquired, not reported on this accession number.[facility][U] XRAY SPINE THORACIC 2 VWS [id number] 12:04:00Images acquired, not reported on this accession number.[facility][U] XRAY SPINE CERVICAL 2 OR 3 VWS [id number] 12:04:00Images acquired, not reported on this accession number.[facility]
--- NOTE | 2022-11-05 18:30 | RAD REPORT ---
EXAM DESCRIPTION: CT - Head C Spine Mpr Wo Con - 11/05/2022 6:13 pm CLINICAL HISTORY: Head and neck injury status post fall. Head and neck pain COMPARISON: 2019 TECHNIQUE: Computed axial tomography of the head and cervical spine was obtained. Sagittal and coronal reconstruction was performed. All CT scans are performed using dose optimization technique as appropriate and may include automated exposure control or mA/KV adjustment according to patient size. FINDINGS: An intracranial bleed is not seen. The ventricles are normal in caliber. No significant hypodensity within the brain. An extra-axial fluid collection is not noted. Fluid is present within left maxillary and ethmoid sinuses probably acute sinusitis An acute cervical fracture is not visualized. No dislocation is noted. Postsurgical changes involve t he cervical spine. Bridging ossifications anterior cervical spine IMPRESSION: No acute intracranial abnormality is seen. An acute cervical fracture is not visualized. If the patient continues to have symptoms to suggest intracranial /spinal cord pathology then MRI wou ld be recommended
--- NOTE | 2022-11-05 18:37 | ER ---
Nurse's Notes [facility] Name: Feli Rae Age: 82 yrs Sex: Female : 1940 Arrival Date: 11/05/2022 Time: 17:43 Bed 6 Private MD: Diagnosis: Closed head injury, forehead contusion and hematoma. Presentation: 11/05 17:48 Chief complaint: Patient states: she fell on offset concrete hitting her head. patient ap3 denies LOC. Coronavirus screen: At this time, the client does not indicate any symptoms associated with coronavirus-19. Ebola Screen: No symptoms or risks identified at this time. Initial Sepsis Screen: Does the patient meet any 2 criteria? No. Patient's initial sepsis screen is negative. Does the patient have a suspected source of infection? No. Patient's initial sepsis screen is negative. Risk Assessment: Do you want to hurt yourself or someone else? Patient reports no desire to harm self or others. Onset of symptoms was November 05, 2022. 17:48 Method Of Arrival: Ambulatory ap3 17:48 Acuity: RAFAEL 3 ap3 17:51 Care prior to arrival: None. Mechanism of Injury: Fall from standing position. Trauma ap3 event details: Injury occurred in the [facility], Injury occurred: at home. Injury occurred: November 05, 2022. Triage Assessment: 17:50 General: Appears in no apparent distress. Behavior is calm, cooperative, appropriate ap3 for age. Pain: Complains of pain in forehead. Neuro: Level of Consciousness is awake, alert, obeys commands, Oriented to person, place, time, situation, Appropriate for age Moves all extremities. Gait is steady, Speech is normal. Cardiovascular: Patient's skin is warm and dry. Respiratory: Airway is patent Respiratory effort is even, unlabored, Respiratory pattern is regular, symmetrical. Derm: Wound noted forehead. Historical: - Allergies: 17:49 PENICILLINS; ap3 17:49 Codeine; ap3 17:49 Sulfa (Sulfonamide Antibiotics); ap3 - Home Meds: 17:49 Metoprolol Tartrate Oral [Active]; ap3 - PMHx: 17:49 Diabetes - NIDDM; Hypertension; ap3 - Immunization history:: Client reports having NOT received the Covid vaccine. Last tetanus immunization: unknown. - Social history:: Smoking status: Patient denies any tobacco usage or history of. Screenin:51 [facility] ED Fall Risk Assessment (Adult) History of falling in the last 3 months, ap3 including since admission Yes- single mechanical fall (1 pt) Confusion or Disorientation No (0 pts) Intoxicated or Sedated No (0 pts) Impaired Gait No (0 pts) Mobility Assist Device Used No (0 pt) Altered Elimination No (0 pt). Abuse screen: Denies threats or abuse. Nutritional screening: No deficits noted. Tuberculosis screening: No symptoms or risk factors identified. Assessment: 18:00 General: Appears in no apparent distress. uncomfortable, Behavior is calm, cooperative, nj1 appropriate for age. Pain: Complains of pain in forehead Pain currently is 4 out of 10 on a pain scale. 18:00 Neuro: Level of Consciousness is awake, alert, obeys commands, Oriented to person, nj1 place, time, situation. Cardiovascular: Patient's skin is warm and dry. Respiratory: Airway is patent Respiratory effort is even, unlabored. Derm: Hematoma noted to right side of forehead. 18:51 Reassessment: Patient appears in no apparent distress at this time. No changes from nj1 previously documented assessment. Vital Signs: 17:48 Pulse 95; Resp 18; Temp 98.6; Pulse Ox 100% ; Weight 70.31 kg; Pain 7/10; ap3 17:50 BP 167 / 85; ap3 18:50 BP 128 / 84; Pulse 85; Resp 18; Pulse Ox 95% on R/A; Pain 4/10; nj1 17:48 Pain Scale: Adult ap3 18:50 Pain Scale: Adult nj1 Bridgett Coma Score: 17:51 Eye Response: spontaneous(4). Motor Response: obeys commands(6). Verbal Response: ap3 oriented(5). Total: 15. Trauma Score (Adult): 17:50 Eye Response: spontaneous(1); Verbal Response: oriented(1); Motor Response: obeys ap3 commands(2); Systolic BP: > 89 mm Hg(4); Respiratory Rate: 10 to 29 per min(4); Bridgett Score: 15; Trauma Score: 12 ED Course: 17:45 Patient arrived in ED. rg4 17:47 Tod Rich MD is Attending Physician. sp3 17:49 Triage completed. ap3 17:50 Arm band placed on left wrist. ap3 17:51 Patient maintains SpO2 saturation greater than 95% on room air. ap3 17:59 Clara Hodgson, RN is Primary Nurse. nj1 18:00 Patient has correct armband on for positive identification. Bed in low position. Call nj1 light in reach. Adult w/ patient. Provided Education on: fall precautions, call light. 18:11 CT Head C Spine In Process Unspecified. EDMS 18:51 No provider procedures requiring assistance completed. Patient did not have IV access nj1 during this emergency room visit. Administered Medications: No medications were administered Medication: 18:51 VIS not applicable for this client. nj1 Outcome: 18:36 Discharge ordered by . sp3 18:51 Discharged to home ambulatory, with family. nj1 18:51 Condition: stable 18:51 Discharge instructions given to patient, Instructed on discharge instructions, follow up and referral plans. safety practices, Demonstrated understanding of instructions, follow-up care. 18:51 Patient left the ED. nj1 Signatures: Dispatcher [employer] EDWV Sharona Puckett rg4 Blanche Purcell, RN RN ap3 Tod Rich MD MD sp3 Clara Hodgson, RN RN nj1
--- NOTE | 2022-11-05 18:37 | EDPHYS ---
Physician Documentation [facility] Name: Feli Rae Age: 82 yrs Sex: Female : 1940 Arrival Date: 11/05/2022 Time: 17:43 Bed 6 Private MD: ED Physician Tod Rich HPI: 11/05 17:55 This 82 yrs old Female presents to ER via Ambulatory with complaints of Fall Injury. sp3 17:55 82-year-old female with a history of hypertension and diabetes presents to the ED with sp3 a mechanical ground-level fall tripping on x-ray. With injury to the forehead consisting of hematoma. Patient self came to the hospital via POV. Denies loss of consciousness or being on any blood thinners or antiplatelet agents. She denies secondary injury including neck pain, chest pain, back pain, abdominal pain, extremity pain or any other signs or symptoms on ROS at this time. No visual changes noted. Patient does have prior C5 injury but denies any neck pain or neurological symptoms at this time.. Historical: - Allergies: 17:49 PENICILLINS; ap3 17:49 Codeine; ap3 17:49 Sulfa (Sulfonamide Antibiotics); ap3 - Home Meds: 17:49 Metoprolol Tartrate Oral [Active]; ap3 - PMHx: 17:49 Diabetes - NIDDM; Hypertension; ap3 - Immunization history:: Client reports having NOT received the Covid vaccine. Last tetanus immunization: unknown. - Social history:: Smoking status: Patient denies any tobacco usage or history of. ROS: 17:56 Constitutional: Negative for fever, chills, and weight loss, Eyes: Negative for injury, sp3 pain, redness, and discharge, ENT: Negative for injury, pain, and discharge, Neck: Negative for injury, pain, and swelling, Cardiovascular: Negative for chest pain, palpitations, and edema, Respiratory: Negative for shortness of breath, cough, wheezing, and pleuritic chest pain, Abdomen/GI: Negative for abdominal pain, nausea, vomiting, diarrhea, and constipation, Back: Negative for injury and pain, MS/Extremity: Negative for injury and deformity, Skin: Negative for injury, rash, and discoloration, Allergy/Immunology: Negative for hives, rash, and allergies, Endocrine: Negative for neck swelling, polydipsia, polyuria, polyphagia, and marked weight changes, Hematologic/Lymphatic: Negative for swollen nodes, abnormal bleeding, and unusual bruising. 17:56 All other systems are negative. Exam: 17:56 Constitutional: This is a well developed, well nourished patient who is awake, alert, sp3 and in no acute distress. Eyes: Pupils equal round and reactive to light, extra-ocular motions intact. Lids and lashes normal. Conjunctiva and sclera are non-icteric and not injected. Cornea within normal limits. Periorbital areas with no swelling, redness, or edema. ENT: Nares patent. No nasal discharge, no septal abnormalities noted. External auditory canals are clear. Oropharynx with no redness, swelling, or masses, exudates, or evidence of obstruction, uvula midline. Mucous membranes moist. Neck: Trachea midline, no thyromegaly or masses palpated, and no cervical lymphadenopathy. Supple, full range of motion without nuchal rigidity, or vertebral point tenderness. No Meningismus. Chest/axilla: Normal chest wall appearance and motion. Nontender with no deformity. No lesions are appreciated. Cardiovascular: Regular rate and rhythm with a normal S1 and S2. No gallops, murmurs, or rubs. Normal PMI, no JVD. No pulse deficits. Respiratory: Lungs have equal breath sounds bilaterally, clear to auscultation and percussion. No rales, rhonchi or wheezes noted. No increased work of breathing, no retractions or nasal flaring. Abdomen/GI: Soft, non-tender, with normal bowel sounds. No distension or tympany. No guarding or rebound. No evidence of tenderness throughout. Back: No spinal tenderness. No costovertebral tenderness. Full range of motion. MS/ Extremity: Pulses equal, no cyanosis. Neurovascular intact. Full, normal range of motion. Neuro: Awake and alert, GCS 15, oriented to person, place, time, and situation. Cranial nerves II-XII grossly intact. Motor strength 5/5 in all extremities. Sensory grossly intact. Cerebellar exam normal. Normal gait. Psych: Awake, alert, with orientation to person, place and time. Behavior, mood, and affect are within normal limits. 17:56 Head/face: Patient has 3 cm x 3 cm hematoma with surface abrasion on her forehead just right of midline. No lacerations present. Cranial nerve exam is normal. Neck exam is also normal with full flexion and extension and lateral rotation without eliciting any pain or neurological symptoms.. Vital Signs: 17:48 Pulse 95; Resp 18; Temp 98.6; Pulse Ox 100% ; Weight 70.31 kg; Pain 7/10; ap3 17:50 BP 167 / 85; ap3 18:50 BP 128 / 84; Pulse 85; Resp 18; Pulse Ox 95% on R/A; Pain 4/10; nj1 17:48 Pain Scale: Adult ap3 18:50 Pain Scale: Adult nj1 Bridgett Coma Score: 17:51 Eye Response: spontaneous(4). Motor Response: obeys commands(6). Verbal Response: ap3 oriented(5). Total: 15. Trauma Score (Adult): 17:50 Eye Response: spontaneous(1); Verbal Response: oriented(1); Motor Response: obeys ap3 commands(2); Systolic BP: > 89 mm Hg(4); Respiratory Rate: 10 to 29 per min(4); Bridgett Score: 15; Trauma Score: 12 MDM: 17:53 Patient medically screened. sp3 17:57 Data reviewed: vital signs, nurses notes, radiologic studies. ED course: 82-year-old sp3 with mechanical ground-level fall with forehead hematoma. Will assess with CT scan of the head and C-spine and if negative discharge patient home on general precautions. I am not highly suspicious for intracranial hemorrhage, cervical fracture, prodromal event causing the fall, or any other critical process.. 18:36 ED course: CT scan of the head and C-spine demonstrate no significant abnormality. We sp3 will safely discharge patient home at this time.. 11/05 17:53 Order name: CT Head C Spine; Complete Time: 18:34 sp3 Administered Medications: No medications were administered Disposition Summary: 11/05/22 18:36 Discharge Ordered Location: Home sp3 Condition: Stable sp3 Diagnosis - Closed head injury, forehead contusion and hematoma. sp3 Followup: sp3 - With: Private Physician - When: Upon discharge from the Emergency Department - Reason: Continuance of care Discharge Instructions: - Discharge Summary Sheet sp3 - Head Injury, Adult sp3 Forms: - Medication Reconciliation Form sp3 - Thank You Letter sp3 - Antibiotic Education sp3 - Prescription Opioid Use sp3 - Patient Portal Instructions sp3 - Leadership Thank You Letter sp3 Signatures: Dispatcher Carlitos Blanche Garland RN RN ap3 Tod Rich MD MD sp3
[2022-11-05 18:56] VITALS: TEMP 98.6
[2022-11-05 18:58] VITALS: BP 128/84; O2SAT 95
== END 2022-11-05 18:51 | disposition home or self-care (01) ==
LOC: ER 17:43
DX: S00.83XA Contusion of other part of head, initial encounter (principal); E11.9 Type 2 diabetes mellitus without complications; I10 Essential (primary) hypertension; Z88.0 Allergy status to penicillin; Z88.2 Allergy status to sulfonamides; Z88.5 Allergy status to narcotic agent
CPT/HCPCS: 70450; 72125

== ENCOUNTER → 2023-03-06 | Emergency (ER) | payer OTHER ==
--- OUTSIDE RECORDS SUMMARY | 2023-03-06 16:04 | XMS REPORT | Continuity of Care Document ---
Author Name Unknown Address [address] [facility] Richard. [address] th[address] Address [address] [facility]. 1 [address] [place] [address] Care Team Providers Care Bi Data Modeler Name Role Phone SINA MORALES Attending Clinician Unavailable Sarah Attending Clinician Unavailable SINA MORALES M.D. Attending Clinician Unavailable Sarah Admitting Clinician Unavailable Payers Payer Name Policy Type Policy Number Effective Date Expirati on Date Source MEDICARE PART A AND B [id number] 2007 00:00:00 [employer] (MEDICARE REPLACEMENT PPO) [id number] 2022 00:00:00 [place]: [employer] [id number] 2007 00:00:00 [employer] [id number] 2017 00:00:00 2022 00:00:00 Problems Condition Name Condition Details Condition Category Status Onset Date Resolution Date Last Treatment Date Treating Clinician Comments Source Tinea cruris Tinea Cruris Problem Active 10-02 00:00: 00 [facility] Overweight Overweight Problem Active 10-02 00:00: 00 [facility] Hypercalce pete Hypercalce pete Problem Active 07-14 00:00: 00 [facility] Body mass index 25-29 - overweight Body Mass Index 25-29 - Overweight Problem Active - 00:00: 00 [facility] Candidiasi s of vagina Candidiasi s of Vagina Problem Active 2021-03 0 00:00: 00 [facility] Hypertensi ve disorder Hypertensi ve Disorder Problem Active 06-07 00:00: 00 [facility] Senile purpura Senile Purpura Problem Active 06-07 00:00: 00 [facility] Mixed hyperlipid emia Mixed Hyperlipid emia Problem Active 04-12 00:00: 00 [facility] Secondary polycythem ia Secondary Polycythem ia Problem Active 04-12 00:00: 00 [facility] Obstructiv e sleep apnea syndrome Obstructiv e Sleep Apnea Syndrome Problem Active 04-12 00:00: 00 [facility] Foot callus Foot Callus Problem Active 04-12 00:00: 00 [facility] Blister Blister Problem Active 04-12 00:00: 00 [facility] Elevated blood-pres sure reading without diagnosis of hypertensi on Elevated Blood-pres sure Reading without Diagnosis of Hypertensi on Problem Active 03-15 00:00: 00 [facility] Type 2 diabetes mellitus Type 2 Diabetes Mellitus Problem Active 03-15 00:00: 00 [facility] Hand weakness [facility] weakness [facility] Cervical pain Cervical pain Problem Active [facility] Thoracic back pain Thoracic back pain Problem Active [facility] Social History Social Habit Start Date Stop Date Quantity Comments Source Exposure to SARS-CoV-2 (event) Not sure [facility] Sex Assigned At 1940 00:00:00 1940 00:00:00 [facility] Smoking Status Start Date Stop Date Source Never Smoker [facility] Unknown if ever smoked [facility] Medications Ordered Medication Name Filled Medication Name Start Date Stop Date Current Medication? Ordering Clinician Indication Dosage Frequency Signature (SIG) Comments Components Source aspirin 81 mg capsule Take two capsule daily aspirin 81 mg capsule Take two capsule daily No aspirin 81 mg capsule Take two capsule daily [facility] cetirizine 10 mg tablet TAKE 1 TABLET BY MOUTH EVERY DAY NEEDED FOR CONGESTION cetirizine 10 mg tablet TAKE 1 TABLET BY MOUTH EVERY DAY NEEDED FOR CONGESTION No cetirizine 10 mg tablet TAKE 1 TABLET BY MOUTH EVERY DAY NEEDED FOR CONGESTION [facility] Jardiance 10 mg tablet Take 1 tablet every day by oral route in the morning for 30 days. Jardiance 10 mg tablet Take 1 tablet every day by oral route in the morning for 30 days. No 1 Q1D Jardiance 10 mg tablet Take 1 tablet every day by oral route in the morning for 30 days. [facility] metoprolol tartrate 100 mg tablet TAKE 1 TABLET BY MOUTH TWICE A DAY metoprolol tartrate 100 mg tablet TAKE 1 TABLET BY MOUTH TWICE A DAY No metoprolol tartrate 100 mg tablet TAKE 1 TABLET BY MOUTH TWICE A DAY [facility] mupirocin 2 % topical ointment APPLY TO AFFECTED AREA 3 TIMES A DAY mupirocin 2 % topical ointment APPLY TO AFFECTED AREA 3 TIMES A DAY No mupirocin 2 % topical ointment APPLY TO AFFECTED AREA 3 TIMES A DAY [facility] OneTouch Delica Lancets 33 gauge 3 TIMES A DAY OneTouch Delica Lancets 33 gauge 3 TIMES A DAY No OneTouch Delica Lancets 33 gauge 3 TIMES A DAY [facility] OneTouch Verio test strips Take 2 strips every day by miscell. route for 90 days. OneTouch Verio test strips Take 2 strips every day by miscell. route for 90 days. No 2strip( s) Q1D OneTouch Verio test strips Take 2 strips every day by miscell. route for 90 days. [facility] prednisolon e acetate 1 % eye drops,suspe nsion INSTILL 1 DROP INTO BOTH EYES 4 TIMES A DAY FOR 5 DAYS prednisolon e acetate 1 % eye drops,suspe nsion INSTILL 1 DROP INTO BOTH EYES 4 TIMES A DAY FOR 5 DAYS No prednisolo ne acetate 1 % eye drops,susp ension INSTILL 1 DROP INTO BOTH EYES 4 TIMES A DAY FOR 5 DAYS [facility] Trulicity 1.5 mg/0.5 mL subcutaneou s pen injector Inject 1.5 mg every week by subcutaneou s route for 30 days. Trulicity 1.5 mg/0.5 mL subcutaneou s pen injector Inject 1.5 mg every week by subcutaneou s route for 30 days. No 1.5mg Q1W Trulicity 1.5 mg/0.5 mL subcutaneo us pen injector Inject 1.5 mg every week by subcutaneo us route for 30 days. [facility] valsartan 80 mg tablet TAKE 1 TABLET BY MOUTH EVERY DAY FOR 30 DAYS valsartan 80 mg tablet TAKE 1 TABLET BY MOUTH EVERY DAY FOR 30 DAYS No valsartan 80 mg tablet TAKE 1 TABLET BY MOUTH EVERY DAY FOR 30 DAYS [facility] aspirin 81 mg capsule Take two capsule daily aspirin 81 mg capsule Take two capsule daily No aspirin 81 mg capsule Take two capsule daily [facility] fluconazole 150 mg tablet Take 1 tablet every day by oral route for 3 days. fluconazole 150 mg tablet Take 1 tablet every day by oral route for 3 days. No 1 Q1D fluconazol e 150 mg tablet Take 1 tablet every day by oral route for 3 days. [facility] FreeStyle Tomy 2 Sensor kit USE DIRECTED DAILY BUT CHANGE EVERY 14 DAYS. FreeStyle Tomy 2 Sensor kit USE DIRECTED DAILY BUT CHANGE EVERY 14 DAYS. No FreeStyle Tomy 2 Sensor kit USE DIRECTED DAILY BUT CHANGE EVERY 14 DAYS. [facility] Jardiance 10 mg tablet TAKE 1 TABLET BY MOUTH EVERY DAY IN THE MORNING Jardiance 10 mg tablet TAKE 1 TABLET BY MOUTH EVERY DAY IN THE MORNING No Jardiance 10 mg tablet TAKE 1 TABLET BY MOUTH EVERY DAY IN THE MORNING [facility] metoprolol tartrate 100 mg tablet TAKE 1 TABLET BY MOUTH TWICE A DAY metoprolol tartrate 100 mg tablet TAKE 1 TABLET BY MOUTH TWICE A DAY No metoprolol tartrate 100 mg tablet TAKE 1 TABLET BY MOUTH TWICE A DAY [facility] OneTouch Delica Lancets 33 gauge 3 TIMES A DAY OneTouch Delica Lancets 33 gauge 3 TIMES A DAY No OneTouch Delica Lancets 33 gauge 3 TIMES A DAY [facility] OneTouch Verio test strips Take 2 strips every day by miscell. route for 90 days. OneTouch Verio test strips Take 2 strips every day by miscell. route for 90 days. No 2strip( s) Q1D OneTouch Verio test strips Take 2 strips every day by miscell. route for 90 days. [facility] Trulicity 1.5 mg/0.5 mL subcutaneou s pen injector INJECT 1.5 MG UNDER THE SKIN ONCE EVERY WEEK BY SUBCUTANEOU S ROUTE FOR 30 DAYS. Trulicity 1.5 mg/0.5 mL subcutaneou s pen injector INJECT 1.5 MG UNDER THE SKIN ONCE EVERY WEEK BY SUBCUTANEOU S ROUTE FOR 30 DAYS. No Trulicity 1.5 mg/0.5 mL subcutaneo us pen injector INJECT 1.5 MG UNDER THE SKIN ONCE EVERY WEEK BY SUBCUTANEO US ROUTE FOR 30 DAYS. [facility] valsartan 80 mg tablet TAKE 1 TABLET BY MOUTH EVERY DAY FOR 30 DAYS valsartan 80 mg tablet TAKE 1 TABLET BY MOUTH EVERY DAY FOR 30 DAYS No valsartan 80 mg tablet TAKE 1 TABLET BY MOUTH EVERY DAY FOR 30 DAYS [facility] aspirin 81 mg capsule Take two capsule daily aspirin 81 mg capsule Take two capsule daily No aspirin 81 mg capsule Take two capsule daily [facility] FreeStyle Tomy 14 Day Sensor kit USE DIRECTED DAILY BUT CHANGE EVERY 14 DAYS. FreeStyle Tomy 14 Day Sensor kit USE DIRECTED DAILY BUT CHANGE EVERY 14 DAYS. No FreeStyle Tomy 14 Day Sensor kit USE DIRECTED DAILY BUT CHANGE EVERY 14 DAYS. [facility] Jardiance 10 mg tablet Take 1 tablet every day by oral route in the morning for 30 days. Jardiance 10 mg tablet Take 1 tablet every day by oral route in the morning for 30 days. No 1 Q1D Jardiance 10 mg tablet Take 1 tablet every day by oral route in the morning for 30 days. [facility] loteprednol etabonate 0.5 % eye drops,suspe nsion INSTILL ONE DROP EVERY 4 HOURS INTO BOTH EYES FOR 7 DAYS loteprednol etabonate 0.5 % eye drops,suspe nsion INSTILL ONE DROP EVERY 4 HOURS INTO BOTH EYES FOR 7 DAYS No lotepredno l etabonate 0.5 % eye drops,susp ension INSTILL ONE DROP EVERY 4 HOURS INTO BOTH EYES FOR 7 DAYS [facility] metoprolol tartrate 100 mg tablet TAKE 1 TABLET BY MOUTH TWICE A DAY metoprolol tartrate 100 mg tablet TAKE 1 TABLET BY MOUTH TWICE A DAY No metoprolol tartrate 100 mg tablet TAKE 1 TABLET BY MOUTH TWICE A DAY [facility] OneTouch Delica Lancets 33 gauge 3 TIMES A DAY OneTouch Delica Lancets 33 gauge 3 TIMES A DAY No OneTouch Delica Lancets 33 gauge 3 TIMES A DAY [facility] OneTouch Verio test strips Take 2 strips every day by miscell. route for 90 days. OneTouch Verio test strips Take 2 strips every day by miscell. route for 90 days. No 2strip( s) Q1D OneTouch Verio test strips Take 2 strips every day by miscell. route for 90 days. [facility] Trulicity 1.5 mg/0.5 mL subcutaneou s pen injector Inject 1.5 mg every week by subcutaneou s route for 30 days. Trulicity 1.5 mg/0.5 mL subcutaneou s pen injector Inject 1.5 mg every week by subcutaneou s route for 30 days. No 1.5mg Q1W Trulicity 1.5 mg/0.5 mL subcutaneo us pen injector Inject 1.5 mg every week by subcutaneo us route for 30 days. [facility] valsartan 80 mg tablet TAKE 1 TABLET BY MOUTH EVERY DAY FOR 30 DAYS valsartan 80 mg tablet TAKE 1 TABLET BY MOUTH EVERY DAY FOR 30 DAYS No valsartan 80 mg tablet TAKE 1 TABLET BY MOUTH EVERY DAY FOR 30 DAYS [facility] aspirin 81 mg capsule Take two capsule daily aspirin 81 mg capsule Take two capsule daily No aspirin 81 mg capsule Take two capsule daily [facility] doxycycline hyclate 100 mg capsule doxycycline hyclate 100 mg capsule No doxycyclin e hyclate 100 mg capsule [facility] FreeStyle Tomy 14 Day Sensor kit CHANGE EVERY 14 DAYS FreeStyle Tomy 14 Day Sensor kit CHANGE EVERY 14 DAYS No FreeStyle Tomy 14 Day Sensor kit CHANGE EVERY 14 DAYS [facility] Jardiance 10 mg tablet TAKE 1 TABLET BY MOUTH EVERY DAY IN THE MORNING Jardiance 10 mg tablet TAKE 1 TABLET BY MOUTH EVERY DAY IN THE MORNING No Jardiance 10 mg tablet TAKE 1 TABLET BY MOUTH EVERY DAY IN THE MORNING [facility] loteprednol etabonate 0.5 % eye drops,suspe nsion INSTILL ONE DROP EVERY 4 HOURS INTO BOTH EYES FOR 7 DAYS loteprednol etabonate 0.5 % eye drops,suspe nsion INSTILL ONE DROP EVERY 4 HOURS INTO BOTH EYES FOR 7 DAYS No lotepredno l etabonate 0.5 % eye drops,susp ension INSTILL ONE DROP EVERY 4 HOURS INTO BOTH EYES FOR 7 DAYS [facility] metoprolol tartrate 100 mg tablet TAKE 1 TABLET BY MOUTH TWICE A DAY metoprolol tartrate 100 mg tablet TAKE 1 TABLET BY MOUTH TWICE A DAY No metoprolol tartrate 100 mg tablet TAKE 1 TABLET BY MOUTH TWICE A DAY [facility] Ozempic 0.25 mg or 0.5 mg (2 mg/1.5 mL) subcutaneou s pen injector Inject 0.5 mg every week by subcutaneou s route for 30 days. Ozempic 0.25 mg or 0.5 mg (2 mg/1.5 mL) subcutaneou s pen injector Inject 0.5 mg every week by subcutaneou s route for 30 days. No .5mg Q1W Ozempic 0.25 mg or 0.5 mg (2 mg/1.5 mL) subcutaneo us pen injector Inject 0.5 mg every week by subcutaneo us route for 30 days. [facility] Trulicity 1.5 mg/0.5 mL subcutaneou s pen injector INJECT 1.5 MG EVERY WEEK BY SUBCUTANEOU S ROUTE FOR 30 DAYS. Trulicity 1.5 mg/0.5 mL subcutaneou s pen injector INJECT 1.5 MG EVERY WEEK BY SUBCUTANEOU S ROUTE FOR 30 DAYS. No Trulicity 1.5 mg/0.5 mL subcutaneo us pen injector INJECT 1.5 MG EVERY WEEK BY SUBCUTANEO US ROUTE FOR 30 DAYS. [facility] valsartan 80 mg tablet TAKE 1 TABLET BY MOUTH EVERY DAY FOR 30 DAYS valsartan 80 mg tablet TAKE 1 TABLET BY MOUTH EVERY DAY FOR 30 DAYS No valsartan 80 mg tablet TAKE 1 TABLET BY MOUTH EVERY DAY FOR 30 DAYS [facility] aspirin 81 mg capsule Take two capsule daily aspirin 81 mg capsule Take two capsule daily No aspirin 81 mg capsule Take two capsule daily [facility] doxycycline hyclate 100 mg capsule doxycycline hyclate 100 mg capsule No doxycyclin e hyclate 100 mg capsule [facility] FreeStyle Tomy 14 Day Sensor kit CHANGE EVERY 14 DAYS FreeStyle Tomy 14 Day Sensor kit CHANGE EVERY 14 DAYS No FreeStyle Tomy 14 Day Sensor kit CHANGE EVERY 14 DAYS [facility] Jardiance 10 mg tablet TAKE 1 TABLET BY MOUTH EVERY DAY IN THE MORNING Jardiance 10 mg tablet TAKE 1 TABLET BY MOUTH EVERY DAY IN THE MORNING No Jardiance 10 mg tablet TAKE 1 TABLET BY MOUTH EVERY DAY IN THE MORNING [facility] loteprednol etabonate 0.5 % eye drops,suspe nsion INSTILL ONE DROP EVERY 4 HOURS INTO BOTH EYES FOR 7 DAYS loteprednol etabonate 0.5 % eye drops,suspe nsion INSTILL ONE DROP EVERY 4 HOURS INTO BOTH EYES FOR 7 DAYS No lotepredno l etabonate 0.5 % eye drops,susp ension INSTILL ONE DROP EVERY 4 HOURS INTO BOTH EYES FOR 7 DAYS [facility] metoprolol tartrate 100 mg tablet TAKE 1 TABLET BY MOUTH TWICE A DAY metoprolol tartrate 100 mg tablet TAKE 1 TABLET BY MOUTH TWICE A DAY No metoprolol tartrate 100 mg tablet TAKE 1 TABLET BY MOUTH TWICE A DAY [facility] Ozempic 0.25 mg or 0.5 mg (2 mg/1.5 mL) subcutaneou s pen injector Inject 0.5 mg every week by subcutaneou s route for 30 days. Ozempic 0.25 mg or 0.5 mg (2 mg/1.5 mL) subcutaneou s pen injector Inject 0.5 mg every week by subcutaneou s route for 30 days. No .5mg Q1W Ozempic 0.25 mg or 0.5 mg (2 mg/1.5 mL) subcutaneo us pen injector Inject 0.5 mg every week by subcutaneo us route for 30 days. [facility] Trulicity 1.5 mg/0.5 mL subcutaneou s pen injector INJECT 1.5 MG EVERY WEEK BY SUBCUTANEOU S ROUTE FOR 30 DAYS. Trulicity 1.5 mg/0.5 mL subcutaneou s pen injector INJECT 1.5 MG EVERY WEEK BY SUBCUTANEOU S ROUTE FOR 30 DAYS. No Trulicity 1.5 mg/0.5 mL subcutaneo us pen injector INJECT 1.5 MG EVERY WEEK BY SUBCUTANEO US ROUTE FOR 30 DAYS. [facility] valsartan 80 mg tablet TAKE 1 TABLET BY MOUTH EVERY DAY FOR 30 DAYS valsartan 80 mg tablet TAKE 1 TABLET BY MOUTH EVERY DAY FOR 30 DAYS No valsartan 80 mg tablet TAKE 1 TABLET BY MOUTH EVERY DAY FOR 30 DAYS [facility] aspirin 81 mg capsule Take two capsule daily aspirin 81 mg capsule Take two capsule daily No aspirin 81 mg capsule Take two capsule daily [facility] doxycycline hyclate 100 mg capsule doxycycline hyclate 100 mg capsule No doxycyclin e hyclate 100 mg capsule [facility] FreeStyle Tomy 14 Day Sensor kit CHANGE EVERY 14 DAYS FreeStyle Tomy 14 Day Sensor kit CHANGE EVERY 14 DAYS No FreeStyle Tomy 14 Day Sensor kit CHANGE EVERY 14 DAYS [facility] Jardiance 10 mg tablet TAKE 1 TABLET BY MOUTH EVERY DAY IN THE MORNING Jardiance 10 mg tablet TAKE 1 TABLET BY MOUTH EVERY DAY IN THE MORNING No Jardiance 10 mg tablet TAKE 1 TABLET BY MOUTH EVERY DAY IN THE MORNING [facility] loteprednol etabonate 0.5 % eye drops,suspe nsion INSTILL ONE DROP EVERY 4 HOURS INTO BOTH EYES FOR 7 DAYS loteprednol etabonate 0.5 % eye drops,suspe nsion INSTILL ONE DROP EVERY 4 HOURS INTO BOTH EYES FOR 7 DAYS No lotepredno l etabonate 0.5 % eye drops,susp ension INSTILL ONE DROP EVERY 4 HOURS INTO BOTH EYES FOR 7 DAYS [facility] metoprolol tartrate 100 mg tablet TAKE 1 TABLET BY MOUTH TWICE A DAY metoprolol tartrate 100 mg tablet TAKE 1 TABLET BY MOUTH TWICE A DAY No metoprolol tartrate 100 mg tablet TAKE 1 TABLET BY MOUTH TWICE A DAY [facility] Ozempic 0.25 mg or 0.5 mg (2 mg/1.5 mL) subcutaneou s pen injector Inject 0.5 mg every week by subcutaneou s route for 30 days. Ozempic 0.25 mg or 0.5 mg (2 mg/1.5 mL) subcutaneou s pen injector Inject 0.5 mg every week by subcutaneou s route for 30 days. No .5mg Q1W Ozempic 0.25 mg or 0.5 mg (2 mg/1.5 mL) subcutaneo us pen injector Inject 0.5 mg every week by subcutaneo us route for 30 days. [facility] Trulicity 1.5 mg/0.5 mL subcutaneou s pen injector INJECT 1.5 MG EVERY WEEK BY SUBCUTANEOU S ROUTE FOR 30 DAYS. Trulicity 1.5 mg/0.5 mL subcutaneou s pen injector INJECT 1.5 MG EVERY WEEK BY SUBCUTANEOU S ROUTE FOR 30 DAYS. No Trulicity 1.5 mg/0.5 mL subcutaneo us pen injector INJECT 1.5 MG EVERY WEEK BY SUBCUTANEO US ROUTE FOR 30 DAYS. [facility] valsartan 80 mg tablet TAKE 1 TABLET BY MOUTH EVERY DAY FOR 30 DAYS valsartan 80 mg tablet TAKE 1 TABLET BY MOUTH EVERY DAY FOR 30 DAYS No valsartan 80 mg tablet TAKE 1 TABLET BY MOUTH EVERY DAY FOR 30 DAYS [facility] aspirin 81 mg capsule Take two capsule daily aspirin 81 mg capsule Take two capsule daily No aspirin 81 mg capsule Take two capsule daily [facility] doxycycline hyclate 100 mg capsule doxycycline hyclate 100 mg capsule No doxycyclin e hyclate 100 mg capsule [facility] fluconazole 150 mg tablet Take 1 tablet every day by oral route for 3 days. fluconazole 150 mg tablet Take 1 tablet every day by oral route for 3 days. No 1 Q1D fluconazol e 150 mg tablet Take 1 tablet every day by oral route for 3 days. [facility] FreeStyle Tomy 14 Day Sensor kit CHANGE EVERY 14 DAYS FreeStyle Tomy 14 Day Sensor kit CHANGE EVERY 14 DAYS No FreeStyle Tomy 14 Day Sensor kit CHANGE EVERY 14 DAYS [facility] Jardiance 10 mg tablet Take 1 tablet every day by oral route in the morning for 30 days. Jardiance 10 mg tablet Take 1 tablet every day by oral route in the morning for 30 days. No 1 Q1D Jardiance 10 mg tablet Take 1 tablet every day by oral route in the morning for 30 days. [facility] ketoconazol e 2 % topical cream APPLY TO THE AFFECTED AREA(S) BY TOPICAL ROUTE ONCE DAILY ketoconazol e 2 % topical cream APPLY TO THE AFFECTED AREA(S) BY TOPICAL ROUTE ONCE DAILY No ketoconazo le 2 % topical cream APPLY TO THE AFFECTED AREA(S) BY TOPICAL ROUTE ONCE DAILY [facility] loteprednol etabonate 0.5 % eye drops,suspe nsion INSTILL ONE DROP EVERY 4 HOURS INTO BOTH EYES FOR 7 DAYS loteprednol etabonate 0.5 % eye drops,suspe nsion INSTILL ONE DROP EVERY 4 HOURS INTO BOTH EYES FOR 7 DAYS No lotepredno l etabonate 0.5 % eye drops,susp ension INSTILL ONE DROP EVERY 4 HOURS INTO BOTH EYES FOR 7 DAYS [facility] metoprolol tartrate 100 mg tablet TAKE 1 TABLET BY MOUTH TWICE A DAY metoprolol tartrate 100 mg tablet TAKE 1 TABLET BY MOUTH TWICE A DAY No metoprolol tartrate 100 mg tablet TAKE 1 TABLET BY MOUTH TWICE A DAY [facility] Ozempic 0.25 mg or 0.5 mg (2 mg/1.5 mL) subcutaneou s pen injector Inject 0.5 mg every week by subcutaneou s route for 30 days. Ozempic 0.25 mg or 0.5 mg (2 mg/1.5 mL) subcutaneou s pen injector Inject 0.5 mg every week by subcutaneou s route for 30 days. No .5mg Q1W Ozempic 0.25 mg or 0.5 mg (2 mg/1.5 mL) subcutaneo us pen injector Inject 0.5 mg every week by subcutaneo us route for 30 days. [facility] Ozempic 0.25 mg or 0.5 mg (2 mg/3 mL) subcutaneou s pen injector INJECT 0.5 MG SUBCUTANEOU SLY EVERY WEEK Ozempic 0.25 mg or 0.5 mg (2 mg/3 mL) subcutaneou s pen injector INJECT 0.5 MG SUBCUTANEOU SLY EVERY WEEK No Ozempic 0.25 mg or 0.5 mg (2 mg/3 mL) subcutaneo us pen injector INJECT 0.5 MG SUBCUTANEO USLY EVERY WEEK [facility] valsartan 80 mg tablet TAKE 1 TABLET BY MOUTH EVERY DAY FOR 30 DAYS valsartan 80 mg tablet TAKE 1 TABLET BY MOUTH EVERY DAY FOR 30 DAYS No valsartan 80 mg tablet TAKE 1 TABLET BY MOUTH EVERY DAY FOR 30 DAYS [facility] aspirin 81 mg capsule Take two capsule daily aspirin 81 mg capsule Take two capsule daily No aspirin 81 mg capsule Take two capsule daily [facility] fluconazole 150 mg tablet Take 1 tablet every day by oral route for 3 days. fluconazole 150 mg tablet Take 1 tablet every day by oral route for 3 days. No 1 Q1D fluconazol e 150 mg tablet Take 1 tablet every day by oral route for 3 days. [facility] FreeStyle Tomy 14 Day Sensor kit CHANGE EVERY 14 DAYS FreeStyle Tomy 14 Day Sensor kit CHANGE EVERY 14 DAYS No FreeStyle Tomy 14 Day Sensor kit CHANGE EVERY 14 DAYS [facility] Jardiance 10 mg tablet Take 1 tablet every day by oral route in the morning for 30 days. Jardiance 10 mg tablet Take 1 tablet every day by oral route in the morning for 30 days. No 1 Q1D Jardiance 10 mg tablet Take 1 tablet every day by oral route in the morning for 30 days. [facility] ketoconazol e 2 % topical cream APPLY TO THE AFFECTED AREA(S) BY TOPICAL ROUTE ONCE DAILY ketoconazol e 2 % topical cream APPLY TO THE AFFECTED AREA(S) BY TOPICAL ROUTE ONCE DAILY No ketoconazo le 2 % topical cream APPLY TO THE AFFECTED AREA(S) BY TOPICAL ROUTE ONCE DAILY [facility] loteprednol etabonate 0.5 % eye drops,suspe nsion INSTILL ONE DROP EVERY 4 HOURS INTO BOTH EYES FOR 7 DAYS loteprednol etabonate 0.5 % eye drops,suspe nsion INSTILL ONE DROP EVERY 4 HOURS INTO BOTH EYES FOR 7 DAYS No lotepredno l etabonate 0.5 % eye drops,susp ension INSTILL ONE DROP EVERY 4 HOURS INTO BOTH EYES FOR 7 DAYS [facility] metoprolol tartrate 100 mg tablet TAKE 1 TABLET BY MOUTH TWICE A DAY metoprolol tartrate 100 mg tablet TAKE 1 TABLET BY MOUTH TWICE A DAY No metoprolol tartrate 100 mg tablet TAKE 1 TABLET BY MOUTH TWICE A DAY [facility] Ozempic 0.25 mg or 0.5 mg (2 mg/1.5 mL) subcutaneou s pen injector Inject 0.5 mg every week by subcutaneou s route for 30 days. Ozempic 0.25 mg or 0.5 mg (2 mg/1.5 mL) subcutaneou s pen injector Inject 0.5 mg every week by subcutaneou s route for 30 days. No .5mg Q1W Ozempic 0.25 mg or 0.5 mg (2 mg/1.5 mL) subcutaneo us pen injector Inject 0.5 mg every week by subcutaneo us route for 30 days. [facility] Ozempic 0.25 mg or 0.5 mg (2 mg/3 mL) subcutaneou s pen injector INJECT 0.5 MG SUBCUTANEOU SLY EVERY WEEK FOR 30 DAYS. Ozempic 0.25 mg or 0.5 mg (2 mg/3 mL) subcutaneou s pen injector INJECT 0.5 MG SUBCUTANEOU SLY EVERY WEEK FOR 30 DAYS. No Ozempic 0.25 mg or 0.5 mg (2 mg/3 mL) subcutaneo us pen injector INJECT 0.5 MG SUBCUTANEO USLY EVERY WEEK FOR 30 DAYS. [facility] e valsartan 80 mg tablet TAKE 1 TABLET BY MOUTH EVERY DAY FOR 30 DAYS valsartan 80 mg tablet TAKE 1 TABLET BY MOUTH EVERY DAY FOR 30 DAYS No valsartan 80 mg tablet TAKE 1 TABLET BY MOUTH EVERY DAY FOR 30 DAYS [facility] e Immunizations Ordered Immunization Name Filled Immunization Name Date Status Comments Source COVID-19, mRNA, LNP-S, PF, 30 mcg/0.3 mL dose ([employer]) - COVID-19, mRNA, LNP-S, PF, 30 mcg/0.3 mL dose (Pfizer-BioNTech) - 2020-12-03 00:00:00 Completed [facility] COVID-19, mRNA, LNP-S, PF, 30 mcg/0.3 mL dose (Pfizer-[employer]) - COVID-19, mRNA, LNP-S, PF, 30 mcg/0.3 mL dose (Pfizer-BioNT[employer]) - 2020-12-03 00:00:00 Completed [facility] COVID-19, mRNA, LNP-S, PF, 30 mcg/0.3 mL dose (Pfizer-[employer]) - COVID-19, mRNA, LNP-S, PF, 30 mcg/0.3 mL dose (Pfizer-BioNTech) - 2020-12-03 00:00:00 Completed [facility] COVID-19, mRNA, LNP-S, PF, 30 mcg/0.3 mL dose (Pfizer-[employer]) - COVID-19, mRNA, LNP-S, PF, 30 mcg/0.3 mL dose (Pfizer-BioNTech) - 2020-12-03 00:00:00 Completed [facility] Non-US Vaccine COVID-19 IV (COVAXIN) Non-US Vaccine COVID-19 IV (COVAXIN) 2020-11-13 00:00:00 Completed [facility] Non-US Vaccine COVID-19 IV (COVAXIN) Non-US Vaccine COVID-19 IV (COVAXIN) 2020-11-13 00:00:00 Completed [facility] Non-US Vaccine COVID-19 IV (COVAXIN) Non-US Vaccine COVID-19 IV (COVAXIN) 2020-11-13 00:00:00 Completed [facility] Non-US Vaccine COVID-19 IV (COVAXIN) Non-US Vaccine COVID-19 IV (COVAXIN) 2020-11-13 00:00:00 Completed [facility] Non-US Vaccine COVID-19 IV (COVAXIN) Non-US Vaccine COVID-19 IV (COVAXIN) 2020-11-13 00:00:00 Completed [facility] Non-US Vaccine COVID-19 IV (COVAXIN) Non-US Vaccine COVID-19 IV (COVAXIN) 2020-11-13 00:00:00 Completed [facility] Non-US Vaccine COVID-19 IV (COVAXIN) Non-US Vaccine COVID-19 IV (COVAXIN) 2020-11-13 00:00:00 Completed [facility] Non-US Vaccine COVID-19 IV (COVAXIN) Non-US Vaccine COVID-19 IV (COVAXIN) 2020-05-03 00:00:00 Completed [facility] Non-US Vaccine COVID-19 IV (COVAXIN) Non-US Vaccine COVID-19 IV (COVAXIN) 2020-05-03 00:00:00 Completed [facility] Non-US Vaccine COVID-19 IV (COVAXIN) Non-US Vaccine COVID-19 IV (COVAXIN) 2020-05-03 00:00:00 Completed [facility] COVID-19, mRNA, LNP-S, PF, 30 mcg/0.3 mL dose ([employer]) - ML COVID-19, mRNA, LNP-S, PF, 30 mcg/0.3 mL dose ([employer]) - ML 2020-05-03 00:00:00 Completed [facility] Non-US Vaccine COVID-19 IV (COVAXIN) Non-US Vaccine COVID-19 IV (COVAXIN) 2020-05-03 00:00:00 Completed [facility] COVID-19, mRNA, LNP-S, PF, 30 mcg/0.3 mL dose (Pfizer-BioNTech) - COVID-19, mRNA, LNP-S, PF, 30 mcg/0.3 mL dose (Pfizer-BioNTech) - 2020-05-03 00:00:00 Completed [facility] Non-US Vaccine COVID-19 IV (COVAXIN) Non-US Vaccine COVID-19 IV (COVAXIN) 2020-05-03 00:00:00 Completed [facility] COVID-19, mRNA, LNP-S, PF, 30 mcg/0.3 mL dose (Pfizer-[employer]) - COVID-19, mRNA, LNP-S, PF, 30 mcg/0.3 mL dose (Pfizer-BioNT[employer]) - 2020-05-03 00:00:00 Completed [facility] Non-US Vaccine COVID-19 IV (COVAXIN) Non-US Vaccine COVID-19 IV (COVAXIN) 2020-05-03 00:00:00 Completed [facility] COVID-19, mRNA, LNP-S, PF, 30 mcg/0.3 mL dose (Pfizer-[employer]) - COVID-19, mRNA, LNP-S, PF, 30 mcg/0.3 mL dose (Pfizer-Bio[employer]) - 2020-05-03 00:00:00 Completed [facility] Non-US Vaccine COVID-19 IV (COVAXIN) Non-US Vaccine COVID-19 IV (COVAXIN) 2020-05-03 00:00:00 Completed [facility] Non-US Vaccine COVID-19 IV (COVAXIN) Non-US Vaccine COVID-19 IV (COVAXIN) 2020-04-12 00:00:00 Completed [facility] Non-US Vaccine COVID-19 IV (COVAXIN) Non-US Vaccine COVID-19 IV (COVAXIN) 2020-04-12 00:00:00 Completed [facility] Non-US Vaccine COVID-19 IV (COVAXIN) Non-US Vaccine COVID-19 IV (COVAXIN) 2020-04-12 00:00:00 Completed [facility] COVID-19, mRNA, LNP-S, PF, 30 mcg/0.3 mL dose (Pfizer-BioNT[employer]) - ML COVID-19, mRNA, LNP-S, PF, 30 mcg/0.3 mL dose (Pfizer-BioNTech) - 2020-04-12 00:00:00 Completed [facility] Non-US Vaccine COVID-19 IV (COVAXIN) Non-US Vaccine COVID-19 IV (COVAXIN) 2020-04-12 00:00:00 Completed [facility] COVID-19, mRNA, LNP-S, PF, 30 mcg/0.3 mL dose (Pf[employer]) - COVID-19, mRNA, LNP-S, PF, 30 mcg/0.3 mL dose (Pfizer-Bio[employer]) - 2020-04-12 00:00:00 Completed [facility] Non-US Vaccine COVID-19 IV (COVAXIN) Non-US Vaccine COVID-19 IV (COVAXIN) 2020-04-12 00:00:00 Completed [facility] COVID-19, mRNA, LNP-S, PF, 30 mcg/0.3 mL dose (Pf[employer]) - COVID-19, mRNA, LNP-S, PF, 30 mcg/0.3 mL dose (Pfizer-BioNT[employer]) - 2020-04-12 00:00:00 Completed [facility] Non-US Vaccine COVID-19 IV (COVAXIN) Non-US Vaccine COVID-19 IV (COVAXIN) 2020-04-12 00:00:00 Completed [facility] COVID-19, mRNA, LNP-S, PF, 30 mcg/0.3 mL dose (Pf[employer]) - COVID-19, mRNA, LNP-S, PF, 30 mcg/0.3 mL dose (Pfizer-BioNTech) - 2020-04-12 00:00:00 Completed [facility] Non-US Vaccine COVID-19 IV (COVAXIN) Non-US Vaccine COVID-19 IV (COVAXIN) 2020-04-12 00:00:00 Completed [facility] COVID-19, mRNA, LNP-S, PF, 30 mcg/0.3 mL dose (Pfizer-[employer]) - ML COVID-19, mRNA, LNP-S, PF, 30 mcg/0.3 mL dose (Pfizer-BioNTech) - ML Unknown Completed [facility] Non-US Vaccine COVID-19 IV (COVAXIN) Non-US Vaccine COVID-19 IV (COVAXIN) Unknown Completed [facility] COVID-19, mRNA, LNP-S, PF, 30 mcg/0.3 mL dose (Pfizer-Bio[employer]) - ML COVID-19, mRNA, LNP-S, PF, 30 mcg/0.3 mL dose (Pfizer-Bio[employer]) - ML Unknown Completed [facility] Non-US Vaccine COVID-19 IV (COVAXIN) Non-US Vaccine COVID-19 IV (COVAXIN) Unknown Completed [facility] COVID-19, mRNA, LNP-S, PF, 30 mcg/0.3 mL dose (Pfizer-BioNTech) - ML COVID-19, mRNA, LNP-S, PF, 30 mcg/0.3 mL dose (Pfizer-BioNTech) - ML Unknown Completed [facility] Non-US Vaccine COVID-19 IV (COVAXIN) Non-US Vaccine COVID-19 IV (COVAXIN) Unknown Completed [facility] Vital Signs Vital Name Observation Time Observation Value Comments S ource BP Diastolic 2023-01-02 00:00:00 72 mm[Hg] [facility] Height 2023-01-02 00:00:00 66 [in_i] [facility] BMI (Body Mass Index) 2023-01-02 00:00:00 25.7 kg/m2 [facility] BP Systolic 2023-01-02 00:00:00 115 mm[Hg] [facility] Body Weight 2023-01-02 00:00:00 159 [lb_av] [facility] BP Diastolic 2022-10-02 00:00:00 84 mm[Hg] [facility] Height 2022-10-02 00:00:00 66 [in_i] [facility] BMI (Body Mass Index) 2022-10-02 00:00:00 26 kg/m2 [facility] BP Systolic 2022-10-02 00:00:00 143 mm[Hg] [facility] Body Weight 2022-10-02 00:00:00 161 [lb_av] [facility] BP Diastolic 2022-07-02 00:00:00 87 mm[Hg] [facility] Height 2022-07-02 00:00:00 66 [in_i] [facility] BMI (Body Mass Index) 2022-07-02 00:00:00 26.3 kg/m2 [facility] ly Practice BP Systolic 2022-07-02 00:00:00 154 mm[Hg] [facility] Body Weight 2022-07-02 00:00:00 162.8 [lb_av[facility] Diastolic 2022-03-11 00:00:00 82 mm[Hg] [facility] Height 2022-03-11 00:00:00 66 [in_i] [facility] BMI (Body Mass Index) 2022-03-11 00:00:00 26.5 kg/m2 [facility] Practice BP Systolic 2022-03-11 00:00:00 143 mm[Hg] [facility] Body Weight 2022-03-11 00:00:00 164 [lb_av] [facility] BP Diastolic 2021-12-09 00:00:00 84 mm[Hg] [facility] Height 2021-12-09 00:00:00 66 [in_i] [facility] BMI (Body Mass Index) 2021-12-09 00:00:00 27.3 kg/m2 [facility] Practice BP Systolic 2021-12-09 00:00:00 165 mm[Hg] [facility] Body Weight 2021-12-09 00:00:00 169 [lb_av] [facility] BP Diastolic 2021-09-12 00:00:00 81 mm[Hg] [facility] Height 2021-09-12 00:00:00 66 [in_i] [facility] BMI (Body Mass Index) 2021-09-12 00:00:00 27.6 kg/m2 [facility] Practice BP Systolic 2021-09-12 00:00:00 135 mm[Hg] [facility] Body Weight 2021-09-12 00:00:00 171 [lb_av] [facility] BP Diastolic 2021-06-07 00:00:00 88 mm[Hg] [facility] Height 2021-06-07 00:00:00 66 [in_i] [facility] BMI (Body Mass Index) 2021-06-07 00:00:00 26.6 kg/m2 [facility] BP Systolic 2021-06-07 00:00:00 157 mm[Hg] [facility] Body Weight 2021-06-07 00:00:00 165 [lb_av] [facility] BP Diastolic 2021-04-12 00:00:00 91 mm[Hg] [facility] Height 2021-04-12 00:00:00 66 [in_i] [facility] BMI (Body Mass Index) 2021-04-12 00:00:00 27.1 kg/m2 [facility] BP Systolic 2021-04-12 00:00:00 160 mm[Hg] [facility] Body Weight 2021-04-12 00:00:00 168 [lb_av] [facility] BP Diastolic 2021-03-15 00:00:00 94 mm[Hg] [facility] Height 2021-03-15 00:00:00 66 [in_i] [facility] BMI (Body Mass Index) 2021-03-15 00:00:00 28.1 kg/m2 [facility] BP Systolic 2021-03-15 00:00:00 182 mm[Hg] [facility] Body Weight 2021-03-15 00:00:00 174 [lb_av] [facility] Practice Procedures Procedure Date / Time Performed Performing Clinicia n Source home sleep study 2022-03-11 00:00:00 [facility] home sleep study 2021-09-12 00:00:00 [facility] home sleep study 2021-06-07 00:00:00 [facility] home sleep study 2021-04-12 00:00:00 [facility] XR CERVICAL SPINE 2-3 VIEWS 2020-08-02 19:51:02 [facility] XR THORACIC SPINE 3 VIEWS 2020-08-02 19:51:02 Sina Morales [facility] 2020-04-09 00:00:00 [facility] Post Op Promis 29 Survey 2020-03-08 00:00:00 [facility] 2020-02-24 00:00:00 [facility] Hernia Repair [facility] Section [facility] Plan of Care Planned Activity Planned Date Details Comments Source Diagnostic Test Pending 2023-01-02 00:00:00 glucose, fingerstick, blood [code = glucose, fingerstick, blood] [facility] Diagnostic Test Pending 2023-01-02 00:00:00 hemoglobin A1C, fingerstick [code = hemoglobin A1C, fingerstick] [facility] Future Appointment 2023-04-04 00:00:00 Eleazar Coronado, [id number]; [address], [place] [phone] [facility] Future Appointment 2023-03-19 14:30:00 Eleazar Coronado [id number]; [address], [place] [phone] [facility] Encounters Start Date/Time End Date/Time Encounter Type Admission Type Attending Clinicians Care Facility Care Department Encounter ID Source 2021-07-17 15:11:16 Outpatient [facility] [id number] [facility] 2021-01-29 15:04:09 Outpatient SINA MORALES [facility] [id number] [facility] 2021-01-29 15:03:16 Outpatient [facility] [id number] [facility] 2021-01-29 15:03:16 Outpatient [facility] [id number] [facility] 2020-08-02 15:34:14 Outpatient SINA MORALES [facility] [id number] [facility] 2020-08-02 14:29:13 Outpatient [facility] [id number] [facility] 2020-07-14 03:06:58 Outpatient SINA MORALES [facility] [id number] [facility] 2023-02-21 00:00:00 2023-02-21 00:00:00 Outpatient Cliff_T_HO U_MD VFP VFP [id number] [facility] e 2023-01-07 00:00:00 2023-01-07 00:00:00 Outpatient Cliff_T_HO U_MD VFP VFP [id number] [facility] 2023-01-02 00:00:00 2023-01-02 00:00:00 Outpatient Daniel_T_HO U_MD VFP VFP [id number] [facility] e 2023-01-02 00:00:00 2023-01-02 00:00:00 Outpatient Daniel_T_HO U_MD VFP VFP [id number] [facility] e 2023-01-02 00:00:00 2023-01-02 00:00:00 Eleazar Coronado MD: [id number] [facility], [address], [place] [address] , Ph. VFP [place] - [facility] - [place] - VM_HOU_Avilad [facility] [id number] [facility] e 2022-12-31 00:00:00 2022-12-31 00:00:00 Outpatient Daniel_T_HO U_MD VFP VFP [id number] [facility] e 2022-12-28 00:00:00 2022-12-28 00:00:00 Outpatient Daniel_T_HO U_MD VFP VFP [id number] [facility] e 2022-11-23 00:00:00 2022-11-23 00:00:00 Outpatient Daniel_T_HO U_MD VFP VFP [id number] [facility] e 2022-11-23 00:00:00 2022-11-23 00:00:00 Outpatient Daniel_T_HO U_MD VFP VFP [id number] [facility] Pract[facility] e 2022-10-02 00:00:00 2022-10-02 00:00:00 Outpatient Daniel_T_HO U_MD VFP VFP [id number] [facility] Pract[facility] e 2022-10-02 00:00:00 2022-10-02 00:00:00 Outpatient Daniel_T_HO U_MD VFP VFP [id number] [facility] e 2022-10-02 00:00:00 2022-10-02 00:00:00 Eleazar Coronado MD: [id number], [address], [place] [address] , Ph. VFP [facility] - [place] VM_[place] [id number] [facility] 2022-07-31 00:00:00 2022-07-31 00:00:00 Outpatient Daniel_T VFP VFP [id number] [facility] 2022-07-02 00:00:00 2022-07-02 00:00:00 Outpatient Daniel_T VFP VFP [id number] [facility] 2022-07-02 00:00:00 2022-07-02 00:00:00 Outpatient Daniel_T VFP VFP [id number] [facility] 2022-07-02 00:00:00 2022-07-02 00:00:00 Eleazar Coronado MD: [id number], [address], [place] [address] , Ph. VFP [facility] - [place] VM_HOU_Avil[place] [id number] [facility] 2022-06-29 00:00:00 2022-06-29 00:00:00 Outpatient Daniel_T VFP VFP [id number] [facility] 2022-06-18 00:00:00 2022-06-18 00:00:00 Outpatient Daniel_T VFP VFP [id number] [facility] 2022-05-14 00:00:00 2022-05-14 00:00:00 Outpatient Daniel_T VFP VFP [id number] [facility] 2022-03-11 00:00:00 2022-03-11 00:00:00 Outpatient Daniel_T VFP VFP [id number] [facility] 2022-03-11 00:00:00 2022-03-11 00:00:00 Outpatient Daniel_T VFP VFP [id number] [facility] 2022-03-11 00:00:00 2022-03-11 00:00:00 Outpatient Daniel_T VFP VFP [id number] [facility] 2022-03-11 00:00:00 2022-03-11 00:00:00 Eleazar Coronado MD: [id number], [address], [place] [address] , Ph. VFP [place] - [facility] - [place] - VM_HOU_[place] [id number] [facility] 2022-03-09 00:00:00 2022-03-09 00:00:00 Outpatient Daniel_T VFP VFP [id number] [facility] 2022-03-07 00:00:00 2022-03-07 00:00:00 Outpatient Daniel_T VFP VFP [id number] [facility] 2021-12-09 00:00:00 2021-12-09 00:00:00 Outpatient Daniel_T VFP VFP [id number] [facility] 2021-12-09 00:00:00 2021-12-09 00:00:00 Eleazar Coronado MD: [id number], [address], [place] [address] , Ph. VFP [place] [facility] [place] VM_HOU_[place] [id number] [facility] 2021-12-05 00:00:00 2021-12-05 00:00:00 Outpatient Daniel_T VFP VFP [id number] [facility] 2021-12-04 00:00:00 2021-12-04 00:00:00 Outpatient Daniel_T VFP VFP [id number] [facility] 2021 11:27:00 2021 11:27:00 Outpatient Daniel_T VFP VFP [id number] [facility] 2021-09-12 04:27:00 2021-09-12 04:27:00 Outpatient Daniel_T VFP VFP [id number] [facility] 2021-09-12 00:00:00 2021-09-12 00:00:00 Eleazar Coronado MD: [id number], [facility] [address], [place] [address] , Ph. VFP [place] - [facility] - VM_HOU_[place] [id number] [facility] 2021-09-03 01:42:00 2021-09-03 01:42:00 Outpatient Daniel_T VFP VFP [id number] [facility] 2021-09-03 01:42:00 2021-09-03 01:42:00 Outpatient Daniel_T VFP VFP [id number] [facility] 2021-07-31 04:11:00 2021-07-31 04:11:00 Outpatient Daniel_T VFP VFP [id number] [facility] 2021-06-13 05:32:00 2021-06-13 05:32:00 Outpatient Daniel_T VFP VFP [id number] [facility] 2021-06-07 03:34:00 2021-06-07 03:34:00 Outpatient Daniel_T VFP VFP [id number] [facility] 2021-06-07 00:00:00 2021-06-07 00:00:00 Eleazar Coronado MD: [id number] [address], [facility] [address], [place] [address] , Ph. VFP [place] - [facility] - VM_HOU_[place] [id number] [facility] 2021-05-21 03:41:00 2021-05-21 03:41:00 Outpatient Daniel_T VFP VFP [id number] [facility] 2021-04-15 06:44:00 2021-04-15 06:44:00 Outpatient Daniel_T VFP VFP [id number] [facility] 2021-04-12 03:46:00 2021-04-12 03:46:00 Outpatient Daniel_T VFP VFP [id number] [facility] 2021-04-12 00:00:00 2021-04-12 00:00:00 Eleazar Coronado MD: [id number], [address], [place] [address] , Ph. VFP [place] [facility]_HOU_[place] [id number] [facility] 2021-04-08 05:38:00 2021-04-08 05:38:00 Outpatient Daniel_T VFP VFP [id number] [facility] 2021-03-22 09:30:00 2021-03-22 09:30:00 Outpatient Daniel_T VFP VFP [id number] [facility] 2021-03-15 12:13:00 2021-03-15 12:13:00 Outpatient Daniel_T VFP VFP [id number] [facility] 2021-03-15 00:00:00 2021-03-15 00:00:00 Eleazar Coronado MD: [id number], [address], [place] [address] , Ph. VFP [place] - [facility] - VM_HOU_[place] [id number] [facility] 2021-03-11 03:32:00 2021-03-11 03:32:00 Outpatient Daniel_T VFP VFP [id number] [facility] 2021-02-06 10:35:00 2021-02-06 10:35:00 Outpatient Daniel_T VFP VFP [id number] [facility] 2020-08-02 14:02:53 2020-08-02 15:32:57 Office Visit Sina Morales [facility] [address] [id number] [facility] 2020-04-03 12:30:00 2020-04-03 12:30:00 Appointmen t; SINA MORALES M.D. LADOR, RAN, M.D. [facility] [phone] [facility] 2020-02-24 12:00:00 2020-02-24 12:00:00 SINA Basilio M.D. LADOR, RAN, M.D. [facility] [phone] [facility] Results Test Description Test Time Test Comments Results Result Co mments Source [facility] PracticeGlucose [Mass/volume] in Capillary [id number] 11:15:59* Test Item Value Reference Range Interpretation Comme nts Blood Glucose: mg/dl (test c ode = Blood Glucose: mg/dl) 184 [facility] PracticeHemoglobin A1c measurement device [id number] 11:13:36* Test Item Value Reference Range Interpretation Comme nts Hemoglobin A1c/Hemoglobin.to mary in Blood (test code = 4548-4) 7.4 % 4.0-6.4 [facility] Family PracticeGlucose [Mass/volume] in Capillary [id number] 11:03:28* Test Item Value Reference Range Interpretation Comme nts Blood Glucose: mg/dl (test c ode = Blood Glucose: mg/dl) 185 [facility] PracticeHemoglobin A1c measurement device [id number] 11:27:44* Test Item Value Reference Range Interpretation Comme [facility] Hemoglobin A1c/Hemoglobin.to mary in Blood (test code = 4548-4) 7.2 % 4.0-5.6 [facility] [id number] 11:27:44* Test Item Value Reference Range Interpretation Comme nts Hemoglobin A1c/Hemoglobin.to mary in Blood (test code = 4548-4) 7.2 % 4.0-5.6 [facility] PracticeHemoglobin A1c measurement device [id number] 11:27:44* Test Item Value Reference Range Interpretation Comme nts Hemoglobin A1c/Hemoglobin.to mary in Blood (test code = 4548-4) 7.2 % 4.0-5.6 [facility] PracticeGlucose [Mass/volume] in Capillary [id number] 11:22:26* Test Item Value Reference Range Interpretation Comme nts Blood Glucose: mg/dl (test c ode = Blood Glucose: mg/dl) 142 [facility] [Mass/volume] in Capillary [id number] 11:22:26* Test Item Value Reference Range Interpretation Comme nts Blood Glucose: mg/dl (test c ode = Blood Glucose: mg/dl) 142 [facility] - [facility] PracticeGlucose [Mass/volume] in Capillary [id number] 11:22:26* Test Item Value Reference Range Interpretation Comme nts Blood Glucose: mg/dl (test c ode = Blood Glucose: mg/dl) 142 [facility] PracticeHemoglobin A1c measurement device [id number] 15:25:56* Test Item Value Reference Range Interpretation Comme nts Hemoglobin A1c/Hemoglobin.to mary in Blood (test code = 4548-4) 7.5 % 5.7-6.4 [facility] PracticeGlucose [Mass/volume] in Capillary [id number] 15:22:08* Test Item Value Reference Range Interpretation Comme nts Blood Glucose: mg/dl (test c ode = Blood Glucose: mg/dl) 156 [facility] [id number] 15:29:41* Test Item Value Reference Range Interpretation Comme nts Hemoglobin A1c/Hemoglobin.to mary in Blood (test code = 4548-4) 7.2 % 5.7-6.4 [facility] PracticeGlucose [Mass/volume] in Capillary [id number] 15:27:23* Test Item Value Reference Range Interpretation Comme nts Blood Glucose: mg/dl (test c ode = Blood Glucose: mg/dl) 124 [facility]em[facility] A[facility] measurement device [id number] 14:09:08* Test Item Value Reference Range Interpretation Comme nts Hemoglobin A1c/Hemoglobin.to mary in Blood (test code = 4548-4) 7.8 % 5.7-6.4 [facility] PracticeGlucose [Mass/volume] in Capillary [id number] 14:08:57* Test Item Value Reference Range Interpretation Comme nts Blood Glucose: mg/dl (test c ode = Blood Glucose: mg/dl) 191 [facility]Hem[facility] A[facility] measurement device [id number] 14:01:14* Test Item Value Reference Range Interpretation Comme nts Hemoglobin A1C Fingerstick: (test code = Hemoglobin A1C Fingerstick:) 7.4 [facility] [id number] 14:01:14* Test Item Value Reference Range Interpretation Comme nts Hemoglobin A1C Fingerstick: (test code = Hemoglobin A1C Fingerstick:) 7.4 [facility] PracticeGlucose [Mass/volume] in Capillary [id number] 13:59:15* Test Item Value Reference Range Interpretation Comme nts Blood Glucose: mg/dl (test c ode = Blood Glucose: mg/dl) 132 [facility] PracticeGlucose [Mass/volume] in Capillary [id number] 13:59:15* Test Item Value Reference Range Interpretation Comme nts Blood Glucose: mg/dl (test c ode = Blood Glucose: mg/dl) 132 [facility]em[facility] A[facility]c measurement device [id number] 09:58:19* Test Item Value Reference Range Interpretation Comme nts Hemoglobin A1C Fingerstick: (test code = Hemoglobin A1C Fingerstick:) 8.4 [facility] PracticeHemoglobin A1c measurement device [id number] 09:58:19* Test Item Value Reference Range Interpretation Comme nts Hemoglobin A1C Fingerstick: (test code = Hemoglobin A1C Fingerstick:) 8.4 [facility] PracticeGlucose [Mass/volume] in Capillary [id number] 09:58:12* Test Item Value Reference Range Interpretation Comme nts Blood Glucose: mg/dl (test c ode = Blood Glucose: mg/dl) 292 [facility] PracticeGlucose [Mass/volume] in Capillary [id number] 09:58:12* Test Item Value Reference Range Interpretation Comme nts Blood Glucose: mg/dl (test c ode = Blood Glucose: mg/dl) 292 [facility] CenterXR thoracic spine 3 [id number] 20:32:56X-rays performed to the thoracic spine in AP and lateral views which were reviewed by myself and compared to previous imaging show normal alignment of the thoracic spine and normal position of all screws and hardware.[facility] 2 or 3 [id number] 20:32:38Extrapulmonary in the cervical and thoracic spine including AP, lateral and open-mouth views which were reviewed by myself and compared to previous imaging show normal position of all hardware and normal alignment of the cervical thoracic spine.[facility][U] XRAY SPINE CERVICAL 2 OR 3 [id number] [id number] 12:55:00Images acquired, not reported on this accession number.[facility][U] XRAY SPINE THORACIC 2 VWS [id number] 12:55:00Images acquired, not reported on this accession number.[facility][U] XRAY SPINE THORACIC 2 VWS [id number] 12:04:00Images acquired, not reported on this accession number.[facility][U] XRAY SPINE CERVICAL 2 OR 3 VWS [id number] 12:04:00Images acquired, not reported on this accession number.[facility]
--- NOTE | 2023-03-06 18:33 | ER ---
Nurse's Notes [facility] Name: Feli Rae Age: 82 yrs Sex: Female : 1940 Arrival Date: 03/06/2023 Time: 16:01 Bed 12 Private MD: Diagnosis: Displaced fracture fifth metacarpal right hand Presentation: 03/06 16:13 Chief complaint: Right 5th finger got caught in heavy glass door last night, felt and hb heard a pop in finger. Bruising and swelling noted to right hand. Coronavirus screen: At this time, the client does not indicate any symptoms associated with coronavirus-19. Ebola Screen: No symptoms or risks identified at this time. Initial Sepsis Screen: Does the patient meet any 2 criteria? No. Patient's initial sepsis screen is negative. Does the patient have a suspected source of infection? No. Patient's initial sepsis screen is negative. Risk Assessment: Do you want to hurt yourself or someone else? Patient reports no desire to harm self or others. Onset of symptoms was March 05, 2023. 16:13 Method Of Arrival: Ambulatory hb 16:13 Acuity: RAFAEL 4 hb Triage Assessment: 16:17 General: Appears in no apparent distress. Behavior is calm, cooperative. Pain: Pain hb currently is 2 out of 10 on a pain scale. Neuro: Level of Consciousness is awake, alert, obeys commands, Oriented to person, place, time, situation. Cardiovascular: Patient's skin is warm and dry. Respiratory: Respiratory effort is even, unlabored, Respiratory pattern is regular, symmetrical. Historical: - Allergies: 16:14 Codeine; hb 16:14 PENICILLINS; hb 16:14 Sulfa (Sulfonamide Antibiotics); hb - Home Meds: 16:14 Metoprolol Tartrate Oral [Active]; Mounjaro subcutaneous [Active]; Jardiance oral hb [Active]; - PMHx: 16:14 Diabetes - NIDDM; Hypertension; Hypertension; hb - PSHx: 16:14 section; Hernia Repair; Hand - Right; Hysterectomy; hb - Immunization history:: Adult Immunizations up to date. - Social history:: Smoking status: Patient denies any tobacco usage or history of. Screenin:45 Abuse screen: Denies threats or abuse. Nutritional screening: No deficits noted. vc1 Tuberculosis screening: No symptoms or risk factors identified. Assessment: 19:46 General: Appears in no apparent distress. comfortable, Behavior is calm, cooperative, vc1 appropriate for age. Pain: Complains of pain in right hand. Neuro: Level of Consciousness is awake, alert, obeys commands, Oriented to person, place, time, situation, Appropriate for age. Cardiovascular: No deficits noted. Respiratory: Airway is patent Respiratory effort is even, unlabored, Respiratory pattern is regular, symmetrical. GI: No deficits noted. No signs and/or symptoms were reported involving the gastrointestinal system. : No deficits noted. No signs and/or symptoms were reported regarding the genitourinary system. EENT: No deficits noted. No signs and/or symptoms were reported regarding the EENT system. Vital Signs: 16:13 BP 133 / 88; Pulse 89; Resp 16; Temp 97.2; Pulse Ox 98% on R/A; Weight 70.31 kg; Height hb 5 ft. 6 in. ; Pain 2/10; 16:13 Body Mass Index 25.02 (70.31 kg, 167.64 cm) hb 16:13 Pain Scale: Adult hb ED Course: 16:09 Patient arrived in ED. ts1 16:14 Triage completed. hb 16:15 Lowell Olivas MD is Attending Physician. ec2 16:16 Arm band placed on. hb 18:30 Melisa Carlisle FNP-C is [facility]. kb 19:45 Katie Haley RN is Primary Nurse. vc1 19:45 No provider procedures requiring assistance completed. Patient did not have IV access vc1 during this emergency room visit. 19:46 Provided Education on: splint care. vc1 Administered Medications: No medications were administered Medication: 19:45 VIS not applicable for this client. vc1 Outcome: 18:33 Discharge ordered by . kb 19:45 Discharged to home ambulatory, with significant other, vc1 19:45 Condition: good 19:45 Discharge instructions given to patient, Instructed on discharge instructions, follow up and referral plans. Demonstrated understanding of instructions, follow-up care, splint care, 19:47 Patient left the ED. vc1 Signatures: Melisa Carlisle FNP-C FNP-Ckb Baxter, Heather, RN RN Katie Haley RN RN vc1 Alonzo, Jennifer, PAS PAS ts1 Olivas, Lowell, MD MD ec2
--- NOTE | 2023-03-06 18:33 | EDPHYS ---
Physician Documentation [facility] Name: Feli Rae Age: 82 yrs Sex: Female : 1940 Arrival Date: 03/06/2023 Time: 16:01 Bed 12 Private MD: ED Physician Lowell Olivas HPI: 03/06 16:28 This 82 yrs old Female presents to ER via Ambulatory with complaints of ec2 Finger Injury, Hand Injury. 16:28 Patient arrives today for evaluation of right hand injury. Patient states that she had ec2 close a door and subsequently caught her hand. Patient was initially complaining of finger pain and subsequently bandaged her fingers together however states she actually does not have finger pain and instead has hand pain. Patient reports no skin break and no bleeding. Patient reports no other injuries or falls.. Historical: - Allergies: 16:14 Codeine; hb 16:14 PENICILLINS; hb 16:14 Sulfa (Sulfonamide Antibiotics); hb - Home Meds: 16:14 Metoprolol Tartrate Oral [Active]; Mounjaro subcutaneous [Active]; Jardiance oral hb [Active]; - PMHx: 16:14 Diabetes - NIDDM; Hypertension; Hypertension; hb - PSHx: 16:14 section; Hernia Repair; Hand - Right; Hysterectomy; hb - Immunization history:: Adult Immunizations up to date. - Social history:: Smoking status: Patient denies any tobacco usage or history of. ROS: 16:28 Constitutional: as per hpi ec2 Exam: 16:28 Constitutional: GEN: NAD Head: atraumatic Eyes: EOMI Ears: External ears are ec2 normal. CV: regular rate LUNGS: no respiratory distress ABD: non-distended SKIN: no evidence of rashes MSK: Ecchymosis and TTP to the third fourth and fifth metacarpals. No wounds appreciated. Distally intact, no injury to the nailbeds, fingers are nontender. NEURO: moves all extremities equally Vital Signs: 16:13 BP 133 / 88; Pulse 89; Resp 16; Temp 97.2; Pulse Ox 98% on R/A; Weight 70.31 kg; Height hb 5 ft. 6 in. ; Pain 2/10; 16:13 Body Mass Index 25.02 (70.31 kg, 167.64 cm) hb 16:13 Pain Scale: Adult hb MDM: 16:28 Data reviewed: vital signs. ED course: Patient arrives today for evaluation of a hand ec2 injury. Examination remarkable for MSK findings as noted above. Will obtain an x-ray of the right hand to evaluate fo for bony fracture, considering bony fracture, muscular contusion.. 16:34 Patient medically screened. ec2 18:30 Differential diagnosis: fracture, sprain, contusion. Independent interpretation of the kb following test(s) in the Emergency Department X-Ray: My interpretation is displaced fracture fifth metacarpal. Counseling: I had a detailed discussion with the patient and/or guardian regarding the historical points, exam findings, and any diagnostic results supporting the discharge/admit diagnosis, radiology results, the need for outpatient follow up, a orthopedic surgeon, to return to the emergency department if symptoms worsen or persist or if there are any questions or concerns that arise at home. 03/06 18:39 Order name: RAD; Complete Time: 18:39 EDDC 03/06 18:31 Order name: Ulnar Gutter splint; Complete Time: 19:37 kb Administered Medications: No medications were administered Disposition Summary: 03/06/23 18:33 Discharge Ordered Notes: Location: Home kb Condition: Stable kb Diagnosis - Displaced fracture fifth metacarpal right hand kb Followup: kb - With: Emergency Department - When: As needed - Reason: Worsening of condition Followup: kb - With: Private Physician - When: 2 - 3 days - Reason: Recheck today's complaints, Continuance of care, Re-evaluation by your physician Discharge Instructions: - Discharge Summary Sheet kb - Metacarpal Fracture, Dhao-mg-Aliz kb Forms: - Medication Reconciliation Form kb - Thank You Letter kb - Antibiotic Education kb - Prescription Opioid Use kb - Patient Portal Instructions kb - Leadership Thank You Letter kb Addendum: 03/07/2023 21:16 I was immediately available for consultation during this patient's visit. I did not e c2 personally see the patient or guide the patient's care. . Signatures: Dispatcher [employer] Melisa Sherman, JUNI-C JUNI-Hillary Mora RN RN Lowell Saba MD MD ec2 Corrections: (The following items were deleted from the chart) 03/06 19:35 19:12 Hand Right 3 View+[email or web address] ordered. EDMS EDMS
--- NOTE | 2023-03-06 18:39 | RAD REPORT ---
EXAM DESCRIPTION: RAD - Hand Right 3 View - 03/06/2023 5:39 pm CLINICAL HISTORY: swelling COMPARISON: Hand Right 3 View dated 04/20/2022; Hand Right 3 View dated 04/18/2014 TECHNIQUE: Right hand, 3 views. FINDINGS: No fracture is identified. Well corticated deformity at the head of the fifth metacarpal, suggestive of a remote fracture. Lucency at the distal aspect of the triquetrum, may relate to osteop enia, less likely sequelae of trauma. Linear radiodensity adjacent to the base of the fifth metacarpa l, nonspecific, but may relate to sequelae of acute or chronic ligamentous injury. Stable moderate to advanced degenerative changes throughout the interphalangeal joints and at the laura mb base. Focus of sclerosis of the distal radius is stable suggestive of a bone island. There is no dislocation or periosteal reaction noted. No foreign body. Mild soft tissue swelling abou t the dorsum of the foot. IMPRESSION: No evidence of acute fracture. Findings as above.
[2023-03-06 20:55] VITALS: BP 133/88; TEMP 97.2; O2SAT 98
== END ==
LOC: ER 16:01
DX: S62.306A Unspecified fracture of fifth metacarpal bone, right hand, initial encounter for closed fracture (principal); Z88.0 Allergy status to penicillin; Z88.2 Allergy status to sulfonamides; Z88.5 Allergy status to narcotic agent
CPT/HCPCS: 99283

== ENCOUNTER → 2023-05-06 | Emergency (ER) | payer OTHER ==
[~2023-05-06] MED LIST: ONDANSETRON 4 MG/2 ML VIAL ONE
--- OUTSIDE RECORDS SUMMARY | 2023-05-06 21:25 | XMS REPORT | Continuity of Care Document ---
Author Name Unknown Address [address] [facility] th[address] Address [address] [facility] 1 [address] [place] [address] Care Team Providers Care Tape Editor Name Role Phone SINA MORALES Attending Clinician Unavailable Sarah Attending Clinician Unavailable SINA MORALES M.D. Attending Clinician Unavailable Sarah Admitting Clinician Unavailable Payers Payer Name Policy Type Policy Number Effective Date Expirati on Date Source MEDICARE PART A AND B [id number] 2007 00:00:00 [employer] (MEDICARE REPLACEMENT PPO) [id number] 2022 00:00:00 [place]: [employer] [id number] 2007 00:00:00 [employer] [id number] 2017 00:00:00 2022 00:00:00 Problems Condition Name Condition Details Condition Category Status Onset Date Resolution Date Last Treatment Date Treating Clinician Comments Source Closed fracture of multiple ribs Closed Fracture of Multiple Ribs Problem Active 03-19 00:00: 00 [facility] Fracture of phalanx of finger Fracture of Phalanx of Finger Problem Active 03-19 00:00: 00 [facility] Osteopenia with high fracture risk Osteopenia with High Fracture Risk Problem Active 03-19 00:00: 00 [facility] Tinea cruris Tinea Cruris Problem Active 10-02 00:00: 00 [facility] Overweight Overweight Problem Active 10-02 00:00: 00 [facility] Hypercalce pete Hypercalce pete Problem Active 07-14 00:00: 00 [facility] Body mass index 25-29 - overweight Body Mass Index 25-29 - Overweight Problem Active 1- 00:00: 00 [facility] Candidiasi s of vagina Candidiasi s of Vagina Problem Active 2021-03 0-03 00:00: 00 [facility] Hypertensi ve disorder Hypertensi ve Disorder Problem Active 4 00:00: 00 [facility] Senile purpura Senile Purpura Problem Active 4 00:00: 00 [facility] Mixed hyperlipid emia Mixed Hyperlipid emia Problem Active 2-04 00:00: 00 [facility] Secondary polycythem ia Secondary Polycythem ia Problem Active 2- 00:00: 00 [facility] Obstructiv e sleep apnea syndrome Obstructiv e Sleep Apnea Syndrome Problem Active 2-04 00:00: 00 [facility] Foot callus Foot Callus Problem Active 2-04 00:00: 00 [facility] Blister Blister Problem Active 2- 00:00: 00 [facility] Elevated blood-pres sure reading without diagnosis of hypertensi on Elevated Blood-pres sure Reading without Diagnosis of Hypertensi on Problem Active 1- 00:00: 00 [facility] Type 2 diabetes mellitus Type 2 Diabetes Mellitus Problem Active - 00:00: 00 [facility] Hand weakness Hand weakness Problem [...] Start Date Stop Date Source Never Smoker [facility] Unknown if ever smoked [facility] Medications Ordered Medication Name Filled Medication Name Start Date Stop Date Current Medication? Ordering Clinician Indication Dosage Frequency Signature (SIG) Comments Components Source aspirin 81 mg capsule Take two capsule daily aspirin 81 mg capsule Take two capsule daily No aspirin 81 mg capsule Take two capsule daily [facility] cetirizine 10 mg tablet TAKE 1 TABLET BY MOUTH EVERY DAY NEEDED FOR CONGESTION cetirizine 10 mg tablet TAKE 1 TABLET BY MOUTH EVERY DAY NEEDED FOR CONGESTION No cetirizine 10 mg tablet TAKE 1 TABLET BY MOUTH EVERY DAY NEEDED FOR CONGESTION [facility] Jardiance 10 mg tablet Take 1 tablet every day by oral route in the morning for 30 days. Jardiance 10 mg tablet Take 1 tablet every day by oral route in the morning for 30 days. No 1 Q1D Jardiance 10 mg tablet Take 1 tablet every day by oral route in the morning for [address] [facility] metoprolol tartrate 100 mg tablet TAKE 1 TABLET BY MOUTH TWICE A DAY metoprolol tartrate 100 mg tablet TAKE 1 TABLET BY MOUTH TWICE A DAY No metoprolol tartrate 100 mg tablet TAKE 1 TABLET BY MOUTH TWICE A DAY [facility] mupirocin 2 % topical ointment APPLY TO AFFECTED AREA 3 TIMES A DAY mupirocin 2 % topical ointment APPLY TO AFFECTED AREA 3 TIMES A DAY No mupirocin 2 % topical ointment APPLY TO AFFECTED AREA [address] [facility] OneTouch Delica Lancets 33 gauge 3 TIMES A DAY OneTouch Delica Lancets 33 gauge 3 TIMES A DAY No OneTouch Delica Lancets 33 gauge [address] [facility] OneTouch Verio test strips [...] 4 TIMES A DAY FOR [address] [facility] Trulicity 1.5 mg/0.5 mL [...] two capsule daily [facility] fluconazole 150 mg tablet Take 1 tablet every day by oral route for 3 days. fluconazole 150 mg tablet Take 1 tablet every day by oral route for 3 days. No 1 Q1D fluconazol e 150 mg tablet Take 1 tablet every day by oral route for [address] [facility] FreeStyle Tomy 2 Sensor kit USE DIRECTED DAILY BUT CHANGE EVERY 14 DAYS. FreeStyle Tomy 2 Sensor kit USE DIRECTED DAILY BUT CHANGE EVERY 14 DAYS. No FreeStyle Tomy 2 Sensor kit USE DIRECTED DAILY BUT CHANGE EVERY 14 DAYS. [facility] Jardiance 10 mg tablet TAKE 1 TABLET BY MOUTH EVERY DAY IN THE MORNING Jardiance 10 mg tablet TAKE 1 TABLET BY MOUTH EVERY DAY IN THE MORNING No Jardiance 10 mg tablet TAKE 1 TABLET BY MOUTH EVERY DAY IN THE MORNING [facility] metoprolol tartrate 100 mg tablet TAKE 1 TABLET BY MOUTH TWICE A DAY metoprolol tartrate 100 mg tablet TAKE 1 TABLET BY MOUTH TWICE A DAY No metoprolol tartrate 100 mg tablet TAKE 1 TABLET BY MOUTH TWICE A DAY [facility] OneTouch Delica Lancets 33 gauge 3 TIMES A DAY OneTouch Delica Lancets 33 gauge 3 TIMES A DAY No OneTouch Delica Lancets 33 gauge [address] [facility] OneTouch Verio test strips Take 2 strips every day by miscell. route for 90 days. OneTouch Verio test strips Take 2 strips every day by miscell. route for 90 days. No 2strip( s) Q1D OneTouch Verio test strips Take 2 strips every day by miscell. route for [address] [facility] Trulicity 1.5 mg/0.5 mL [...] BY SUBCUTANEO US ROUTE FOR [address] [facility] valsartan 80 mg tablet TAKE 1 TABLET BY MOUTH EVERY DAY FOR 30 DAYS valsartan 80 mg tablet TAKE 1 TABLET BY MOUTH EVERY DAY FOR 30 DAYS No valsartan 80 mg tablet TAKE 1 TABLET BY MOUTH EVERY DAY FOR [address] [facility] aspirin 81 mg capsule Take two capsule daily aspirin 81 mg capsule Take two capsule daily No aspirin 81 mg capsule Take two capsule daily [facility] FreeStyle Tomy 14 Day Sensor kit USE DIRECTED DAILY BUT CHANGE EVERY 14 DAYS. FreeStyle Tomy 14 Day Sensor kit USE DIRECTED DAILY BUT CHANGE EVERY 14 DAYS. No FreeStyle Tomy 14 Day Sensor kit USE DIRECTED DAILY BUT CHANGE EVERY [address] [facility] Jardiance 10 mg tablet Take 1 tablet every day by oral route in the morning for 30 days. Jardiance 10 mg tablet Take 1 tablet every day by oral route in the morning for 30 days. No 1 Q1D Jardiance 10 mg tablet Take 1 tablet every day by oral route in the morning for [address] [facility] loteprednol etabonate 0.5 % eye drops,suspe nsion INSTILL ONE DROP EVERY 4 HOURS INTO BOTH EYES FOR 7 DAYS loteprednol etabonate 0.5 % eye drops,suspe nsion INSTILL ONE DROP EVERY 4 HOURS INTO BOTH EYES FOR 7 DAYS No lotepredno l etabonate 0.5 % eye drops,susp ension INSTILL ONE DROP EVERY 4 HOURS INTO BOTH EYES FOR [address] [facility] metoprolol tartrate 100 mg tablet TAKE 1 TABLET BY MOUTH TWICE A DAY metoprolol tartrate 100 mg tablet TAKE 1 TABLET BY MOUTH TWICE A DAY No metoprolol tartrate 100 mg tablet TAKE 1 TABLET BY MOUTH TWICE A DAY [facility] OneTouch Delica Lancets 33 gauge 3 TIMES A DAY OneTouch Delica Lancets 33 gauge 3 TIMES A DAY No OneTouch Delica Lancets 33 gauge [address] [facility] OneTouch Verio test strips [...] BY MOUTH EVERY DAY FOR [address] [facility] aspirin 81 mg capsule [...] Day Sensor kit CHANGE EVERY [address] [facility] Jardiance 10 mg tablet TAKE 1 TABLET BY MOUTH EVERY DAY IN THE MORNING Jardiance 10 mg tablet TAKE 1 TABLET BY MOUTH EVERY DAY IN THE MORNING No Jardiance 10 mg tablet TAKE 1 TABLET BY MOUTH EVERY DAY IN THE MORNING [facility] loteprednol etabonate 0.5 % eye drops,suspe nsion INSTILL ONE DROP EVERY 4 HOURS INTO BOTH EYES FOR 7 DAYS loteprednol etabonate 0.5 % eye drops,suspe nsion INSTILL ONE DROP EVERY 4 HOURS INTO BOTH EYES FOR 7 DAYS No lotepredno l etabonate 0.5 % eye drops,susp ension INSTILL ONE DROP EVERY 4 HOURS INTO BOTH EYES FOR [address] [facility] metoprolol tartrate 100 mg tablet TAKE 1 TABLET BY MOUTH TWICE A DAY metoprolol tartrate 100 mg tablet TAKE 1 TABLET BY MOUTH TWICE A DAY No metoprolol tartrate 100 mg tablet TAKE 1 TABLET BY MOUTH TWICE A DAY [facility] Ozempic 0.25 mg or [...] by subcutaneo us route for [address] [facility] Trulicity 1.5 mg/0.5 mL [...] BY SUBCUTANEO US ROUTE FOR [address] [facility] valsartan 80 mg tablet TAKE 1 TABLET BY MOUTH EVERY DAY FOR 30 DAYS valsartan 80 mg tablet TAKE 1 TABLET BY MOUTH EVERY DAY FOR 30 DAYS No valsartan 80 mg tablet TAKE 1 TABLET BY MOUTH EVERY DAY FOR [address] [facility] aspirin 81 mg capsule Take two capsule daily aspirin 81 mg capsule Take two capsule daily No aspirin 81 mg capsule Take two capsule daily [facility] doxycycline hyclate 100 mg capsule doxycycline hyclate 100 mg capsule No doxycyclin e hyclate [address] [facility] FreeStyle Tomy 14 Day Sensor kit CHANGE EVERY 14 DAYS FreeStyle Tomy 14 Day Sensor kit CHANGE EVERY 14 DAYS No FreeStyle Tomy 14 Day Sensor kit CHANGE EVERY [address] [facility] Jardiance 10 mg tablet TAKE 1 TABLET BY MOUTH EVERY DAY IN THE MORNING Jardiance 10 mg tablet TAKE 1 TABLET BY MOUTH EVERY DAY IN THE MORNING No Jardiance 10 mg tablet TAKE 1 TABLET BY MOUTH EVERY DAY IN THE MORNING [facility] loteprednol etabonate 0.5 % eye drops,suspe nsion INSTILL ONE DROP EVERY 4 HOURS INTO BOTH EYES FOR 7 DAYS loteprednol etabonate 0.5 % eye drops,suspe nsion INSTILL ONE DROP EVERY 4 HOURS INTO BOTH EYES FOR 7 DAYS No lotepredno l etabonate 0.5 % eye drops,susp ension INSTILL ONE DROP EVERY 4 HOURS INTO BOTH EYES FOR [address] [facility] metoprolol tartrate 100 mg tablet TAKE 1 TABLET BY MOUTH TWICE A DAY metoprolol tartrate 100 mg tablet TAKE 1 TABLET BY MOUTH TWICE A DAY No metoprolol tartrate 100 mg tablet TAKE 1 TABLET BY MOUTH TWICE A DAY [facility] Ozempic 0.25 mg or [...] by subcutaneo us route for [address] [facility] Trulicity 1.5 mg/0.5 mL [...] BY SUBCUTANEO US ROUTE FOR [address] [facility] valsartan 80 mg tablet TAKE 1 TABLET BY MOUTH EVERY DAY FOR 30 DAYS valsartan 80 mg tablet TAKE 1 TABLET BY MOUTH EVERY DAY FOR 30 DAYS No valsartan 80 mg tablet TAKE 1 TABLET BY MOUTH EVERY DAY FOR [address] [facility] aspirin 81 mg capsule Take two capsule daily aspirin 81 mg capsule Take two capsule daily No aspirin 81 mg capsule Take two capsule daily [facility] doxycycline hyclate 100 mg capsule doxycycline hyclate 100 mg capsule No doxycyclin e hyclate [address] [facility] FreeStyle Tomy 14 Day Sensor kit CHANGE EVERY 14 DAYS FreeStyle Tomy 14 Day Sensor kit CHANGE EVERY 14 DAYS No FreeStyle Tomy 14 Day Sensor kit CHANGE EVERY [address] [facility] Jardiance 10 mg tablet TAKE 1 TABLET BY MOUTH EVERY DAY IN THE MORNING Jardiance 10 mg tablet TAKE 1 TABLET BY MOUTH EVERY DAY IN THE MORNING No Jardiance 10 mg tablet TAKE 1 TABLET BY MOUTH EVERY DAY IN THE MORNING [facility] loteprednol etabonate 0.5 % eye drops,suspe nsion INSTILL ONE DROP EVERY 4 HOURS INTO BOTH EYES FOR 7 DAYS loteprednol etabonate 0.5 % eye drops,suspe nsion INSTILL ONE DROP EVERY 4 HOURS INTO BOTH EYES FOR 7 DAYS No lotepredno l etabonate 0.5 % eye drops,susp ension INSTILL ONE DROP EVERY 4 HOURS INTO BOTH EYES FOR [address] [facility] metoprolol tartrate 100 mg tablet TAKE 1 TABLET BY MOUTH TWICE A DAY metoprolol tartrate 100 mg tablet TAKE 1 TABLET BY MOUTH TWICE A DAY No metoprolol tartrate 100 mg tablet TAKE 1 TABLET BY MOUTH TWICE A DAY [facility] Ozempic 0.25 mg or [...] for 30 days. [facility] Trulicity 1.5 [...] 100 mg capsule [facility] fluconazole 150 mg tablet Take 1 tablet every day by oral route for 3 days. fluconazole 150 mg tablet Take 1 tablet every day by oral route for 3 days. No 1 Q1D fluconazol e 150 mg tablet Take 1 tablet every day by oral route for 3 days. [facility] FreeStyle Tomy 14 Day Sensor kit CHANGE EVERY 14 DAYS FreeStyle Tomy 14 Day Sensor kit CHANGE EVERY 14 DAYS No FreeStyle Tomy 14 Day Sensor kit CHANGE EVERY 14 DAYS [facility] Jardiance 10 mg tablet [...] for 30 days. [facility] ketoconazol e 2 % topical cream APPLY TO THE AFFECTED AREA(S) BY TOPICAL ROUTE ONCE DAILY ketoconazol e 2 % topical cream APPLY TO THE AFFECTED AREA(S) BY TOPICAL ROUTE ONCE DAILY No ketoconazo le 2 % topical cream APPLY TO THE AFFECTED AREA(S) BY TOPICAL ROUTE ONCE DAILY [facility] loteprednol etabonate 0.5 % eye drops,suspe nsion INSTILL ONE DROP EVERY 4 HOURS INTO BOTH EYES FOR 7 DAYS loteprednol etabonate 0.5 % eye drops,suspe nsion INSTILL ONE DROP EVERY 4 HOURS INTO BOTH EYES FOR 7 DAYS No lotepredno l etabonate 0.5 % eye drops,susp ension INSTILL ONE DROP EVERY 4 HOURS INTO BOTH EYES FOR [address] [facility] metoprolol tartrate 100 mg [...] by subcutaneo us route for [address]. [facility] Ozempic 0.25 mg or [...] INJECT 0.5 MG SUBCUTANEO USLY EVERY WEEK [facility] valsartan 80 mg tablet TAKE 1 TABLET BY MOUTH EVERY DAY FOR 30 DAYS valsartan 80 mg tablet TAKE 1 TABLET BY MOUTH EVERY DAY FOR 30 DAYS No valsartan 80 mg tablet TAKE 1 TABLET BY MOUTH EVERY DAY FOR [address] [facility] aspirin 81 mg capsule Take two capsule daily aspirin 81 mg capsule Take two capsule daily No aspirin 81 mg capsule Take two capsule daily [facility] fluconazole 150 mg tablet Take 1 tablet every day by oral route for 3 days. fluconazole 150 mg tablet Take 1 tablet every day by oral route for 3 days. No 1 Q1D fluconazol e 150 mg tablet Take 1 tablet every day by oral route for 3 days. [facility] FreeStyle Tomy 14 Day Sensor kit CHANGE EVERY 14 DAYS FreeStyle Tomy 14 Day Sensor kit CHANGE EVERY 14 DAYS No FreeStyle Tomy 14 Day Sensor kit CHANGE EVERY 14 DAYS [facility] Jardiance 10 mg tablet Take 1 tablet every day by oral route in the morning for 30 days. Jardiance 10 mg tablet Take 1 tablet every day by oral route in the morning for 30 days. No 1 Q1D Jardiance 10 mg tablet Take 1 tablet every day by oral route in the morning for [address] [facility] ketoconazol e 2 % topical cream APPLY TO THE AFFECTED AREA(S) BY TOPICAL ROUTE ONCE DAILY ketoconazol e 2 % topical cream APPLY TO THE AFFECTED AREA(S) BY TOPICAL ROUTE ONCE DAILY No ketoconazo le 2 % topical cream APPLY TO THE AFFECTED AREA(S) BY TOPICAL ROUTE ONCE DAILY [facility] loteprednol etabonate 0.5 % eye drops,suspe nsion INSTILL ONE DROP EVERY 4 HOURS INTO BOTH EYES FOR 7 DAYS loteprednol etabonate 0.5 % eye drops,suspe nsion INSTILL ONE DROP EVERY 4 HOURS INTO BOTH EYES FOR 7 DAYS No lotepredno l etabonate 0.5 % eye drops,susp ension INSTILL ONE DROP EVERY 4 HOURS INTO BOTH EYES FOR [address] [facility] metoprolol tartrate 100 mg tablet TAKE 1 TABLET BY MOUTH TWICE A DAY metoprolol tartrate 100 mg tablet TAKE 1 TABLET BY MOUTH TWICE A DAY No metoprolol tartrate 100 mg tablet TAKE 1 TABLET BY MOUTH TWICE A DAY [facility] Ozempic 0.25 mg or 0.5 [...] SUBCUTANEO USLY EVERY WEEK FOR 30 DAYS. [facility] [...] two capsule daily [facility] fluconazole 150 mg tablet Take 1 tablet every day by oral route for 3 days. fluconazole 150 mg tablet Take 1 tablet every day by oral route for 3 days. No 1 Q1D fluconazol e 150 mg tablet Take 1 tablet every day by oral route for 3 days. [facility] FreeStyle Tomy 14 Day Sensor kit CHANGE EVERY 14 DAYS FreeStyle Tomy 14 Day Sensor kit CHANGE EVERY 14 DAYS No FreeStyle Tomy 14 Day Sensor kit CHANGE EVERY 14 DAYS [facility] Jardiance 10 mg tablet [...] for 30 days. [facility] ketoconazol e 2 % topical cream APPLY TO AFFECTED AREA EVERY DAY ketoconazol e 2 % topical cream APPLY TO AFFECTED AREA EVERY DAY No ketoconazo le 2 % topical cream APPLY TO AFFECTED AREA EVERY DAY [facility] loteprednol etabonate 0.5 % eye drops,suspe nsion INSTILL ONE DROP EVERY 4 HOURS INTO BOTH EYES FOR 7 DAYS loteprednol etabonate 0.5 % eye drops,suspe nsion INSTILL ONE DROP EVERY 4 HOURS INTO BOTH EYES FOR 7 DAYS No lotepredno l etabonate 0.5 % eye drops,susp ension INSTILL ONE DROP EVERY 4 HOURS INTO BOTH EYES FOR [address] [facility] metoprolol tartrate 100 mg tablet TAKE 1 TABLET BY MOUTH TWICE A DAY metoprolol tartrate 100 mg tablet TAKE 1 TABLET BY MOUTH TWICE A DAY No metoprolol tartrate 100 mg tablet TAKE 1 TABLET BY MOUTH TWICE A DAY [facility] Mounjaro 5 mg/0.5 mL subcutaneou s pen injector Inject 5 mg every week by subcutaneou s route for 28 days. Mounjaro 5 mg/0.5 mL subcutaneou s pen injector Inject 5 mg every week by subcutaneou s route for 28 days. No 5mg Q1W Mounjaro 5 mg/0.5 mL subcutaneo us pen injector Inject 5 mg every week by subcutaneo us route for 28 days. [facility] Immunizations Ordered Immunization Name Filled Immunization Name Date Status Comments Source COVID-19, mRNA, LNP-S, PF, 30 mcg/0.3 mL dose (Pfizer-BioNTech) - COVID-19, mRNA, LNP-S, PF, 30 mcg/0.3 mL dose (Pfizer-BioNTech) - 2020-12-03 00:00:[address] [facility] COVID-19, mRNA, LNP-S, PF, 30 mcg/0.3 mL dose (Pfizer-BioNTech) - COVID-19, mRNA, LNP-S, PF, 30 mcg/0.3 mL dose (Pfizer-BioNTech) - 2020-12-03 00:00:[address] [facility] COVID-19, mRNA, LNP-S, PF, 30 mcg/0.3 mL dose ([employer]) - COVID-19, mRNA, LNP-S, PF, 30 mcg/0.3 mL dose ([employer]) - ML 2020-12-03 00:00:[address] [facility] COVID-19, mRNA, LNP-S, PF, 30 mcg/0.3 mL dose ([employer]) - ML COVID-19, mRNA, LNP-S, PF, 30 mcg/0.3 mL dose ([employer]) - 2020-12-03 00:00:[address] [facility] Non-US Vaccine COVID-19 IV (COVAXIN) Non-US Vaccine COVID-19 IV (COVAXIN) 2020-11-13 00:00:[address] [facility] Non-US Vaccine COVID-19 IV (COVAXIN) Non-US Vaccine COVID-19 IV (COVAXIN) 2020-11-13 00:00:[address] [facility] Non-US Vaccine COVID-19 IV (COVAXIN) Non-US Vaccine COVID-19 IV (COVAXIN) 2020-11-13 00:00:[address] [facility] Non-US Vaccine COVID-19 IV (COVAXIN) Non-US Vaccine COVID-19 IV (COVAXIN) 2020-11-13 00:00:[address] [facility] Non-US Vaccine COVID-19 IV (COVAXIN) Non-US Vaccine COVID-19 IV (COVAXIN) 2020-11-13 00:00:[address] [facility] Non-US Vaccine COVID-19 IV (COVAXIN) Non-US Vaccine COVID-19 IV (COVAXIN) 2020-11-13 00:00:[address] [facility] Non-US Vaccine COVID-19 IV (COVAXIN) Non-US Vaccine COVID-19 IV (COVAXIN) 2020-11-13 00:00:[address] [facility] Non-US Vaccine COVID-19 IV (COVAXIN) Non-US Vaccine COVID-19 IV (COVAXIN) 2020-05-03 00:00:[address] [facility] Non-US Vaccine COVID-19 IV (COVAXIN) Non-US Vaccine COVID-19 IV (COVAXIN) 2020-05-03 00:00:[address] [facility] Non-US Vaccine COVID-19 IV (COVAXIN) Non-US Vaccine COVID-19 IV (COVAXIN) 2020-05-03 00:00:[address] [facility] COVID-19, mRNA, LNP-S, PF, 30 mcg/0.3 mL dose (Pf[employer]-Bio[employer]) - ML COVID-19, mRNA, LNP-S, PF, 30 mcg/0.3 mL dose (Pf[employer]) - ML 2020-05-03 00:00:[address] [facility] Non-US Vaccine COVID-19 IV (COVAXIN) Non-US Vaccine COVID-19 IV (COVAXIN) 2020-05-03 00:00:[address] [facility] COVID-19, mRNA, LNP-S, PF, 30 mcg/0.3 mL dose (Pf[employer]) - COVID-19, mRNA, LNP-S, PF, 30 mcg/0.3 mL dose (Pfizer-[employer]) - 2020-05-03 00:00:[address] [facility] Non-US Vaccine COVID-19 IV (COVAXIN) Non-US Vaccine COVID-19 IV (COVAXIN) 2020-05-03 00:00:[address] [facility] COVID-19, mRNA, LNP-S, PF, 30 mcg/0.3 mL dose (Pf[employer]) - COVID-19, mRNA, LNP-S, PF, 30 mcg/0.3 mL dose (Pf[employer]) - 2020-05-03 00:00:[address] [facility] Non-US Vaccine COVID-19 IV (COVAXIN) Non-US Vaccine COVID-19 IV (COVAXIN) 2020-05-03 00:00:[address] [facility] COVID-19, mRNA, LNP-S, PF, 30 mcg/0.3 mL dose ([employer]) - ML COVID-19, mRNA, LNP-S, PF, 30 mcg/0.3 mL dose (Pf[employer]) - 2020-05-03 00:00:[address] [facility] Non-US Vaccine COVID-19 IV (COVAXIN) Non-US Vaccine COVID-19 IV (COVAXIN) 2020-05-03 00:00:[address] [facility] Non-US Vaccine COVID-19 IV (COVAXIN) Non-US Vaccine COVID-19 IV (COVAXIN) 2020-04-12 00:00:[address] [facility] Non-US Vaccine COVID-19 IV (COVAXIN) Non-US Vaccine COVID-19 IV (COVAXIN) 2020-04-12 00:00:[address] [facility] Non-US Vaccine COVID-19 IV (COVAXIN) Non-US Vaccine COVID-19 IV (COVAXIN) 2020-04-12 00:00:[address] [facility] COVID-19, mRNA, LNP-S, PF, 30 mcg/0.3 mL dose (Pf[employer]) - ML COVID-19, mRNA, LNP-S, PF, 30 mcg/0.3 mL dose (Pfizer-Bio[employer]) - ML 2020-04-12 00:00:[address] [facility] Non-US Vaccine COVID-19 IV (COVAXIN) Non-US Vaccine COVID-19 IV (COVAXIN) 2020-04-12 00:00:[address] [facility] COVID-19, mRNA, LNP-S, PF, 30 mcg/0.3 mL dose ([employer]) - ML COVID-19, mRNA, LNP-S, PF, 30 mcg/0.3 mL dose (Pf[employer]) - ML 2020-04-12 00:00:[address] [facility] Non-US Vaccine COVID-19 IV (COVAXIN) Non-US Vaccine COVID-19 IV (COVAXIN) 2020-04-12 00:00:[address] [facility] COVID-19, mRNA, LNP-S, PF, 30 mcg/0.3 mL dose ([employer]) - ML COVID-19, mRNA, LNP-S, PF, 30 mcg/0.3 mL dose (Pfizer[employer]) - ML 2020-04-12 00:00:[address] [facility] Non-US Vaccine COVID-19 IV (COVAXIN) Non-US Vaccine COVID-19 IV (COVAXIN) 2020-04-12 00:00:[address] [facility] COVID-19, mRNA, LNP-S, PF, 30 mcg/0.3 mL dose (Pf[employer]) - ML COVID-19, mRNA, LNP-S, PF, 30 mcg/0.3 mL dose (Pf[employer]) - ML 2020-04-12 00:00:[address] [facility] Non-US Vaccine COVID-19 IV (COVAXIN) Non-US Vaccine COVID-19 IV (COVAXIN) 2020-04-12 00:00:[address] [facility] COVID-19, mRNA, LNP-S, PF, 30 mcg/0.3 mL dose ([employer]) - ML COVID-19, mRNA, LNP-S, PF, 30 mcg/0.3 mL dose (Pfizer-[employer]) - ML Unknown Completed [facility] Non-US Vaccine COVID-19 IV (COVAXIN) Non-US Vaccine COVID-19 IV (COVAXIN) Unknown Completed [facility] COVID-19, mRNA, LNP-S, PF, 30 mcg/0.3 mL dose (Pfizer-BioNTech) - ML COVID-19, mRNA, LNP-S, PF, 30 mcg/0.3 mL dose (Pfizer-BioNTech) - ML Unknown Completed [facility] Non-US Vaccine COVID-19 IV (COVAXIN) Non-US Vaccine COVID-19 IV (COVAXIN) Unknown Completed [facility] COVID-19, mRNA, LNP-S, PF, 30 mcg/0.3 mL dose (Pfizer-BioNTech) - ML COVID-19, mRNA, LNP-S, PF, 30 mcg/0.3 mL dose (Pfizer-BioNTech) - ML Unknown Completed [facility] Non-US Vaccine COVID-19 IV (COVAXIN) Non-US Vaccine COVID-19 IV (COVAXIN) Unknown Completed [facility] COVID-19, mRNA, LNP-S, PF, 30 mcg/0.3 mL dose (Pfizer-BioNTech) - ML COVID-19, mRNA, LNP-S, PF, 30 mcg/0.3 mL dose (Pfizer-BioNTech) - ML Unknown Completed [facility] Non-US Vaccine COVID-19 IV (COVAXIN) Non-US Vaccine COVID-19 IV (COVAXIN) Unknown Completed [facility] COVID-19, mRNA, LNP-S, PF, 30 mcg/0.3 mL dose (Pfizer-BioNTech) - ML COVID-19, mRNA, LNP-S, PF, 30 mcg/0.3 mL dose (Pfizer-BioNTech) - ML Unknown Completed [facility] Non-US Vaccine COVID-19 IV (COVAXIN) Non-US Vaccine COVID-19 IV (COVAXIN) Unknown Completed [facility] COVID-19, mRNA, LNP-S, PF, 30 mcg/0.3 mL dose (Pfizer-BioNTech) - ML COVID-19, mRNA, LNP-S, PF, 30 mcg/0.3 mL dose (Pfizer-BioNTech) - ML Unknown Completed [facility] Non-US Vaccine COVID-19 IV (COVAXIN) Non-US Vaccine COVID-19 IV (COVAXIN) Unknown Completed [facility] Vital Signs Vital Name Observation Time Observation Value Comments S ource Height 2023-03-19 00:00:00 66 [in_i] [facility] BMI (Body Mass Index) 2023-03-19 00:00:00 25 kg/m2 [facility] Body Weight 2023-03-19 00:00:00 155 [lb_av] [facility] BP Systolic 2023-03-19 00:00:00 120 mm[Hg] [facility] BP Diastolic 2023-03-19 00:00:00 78 mm[Hg] [facility] BP Diastolic 2023-01-02 00:00:00 72 mm[Hg] [facility] Height 2023-01-02 00:00:00 66 [in_i] [facility] BMI (Body Mass Index) 2023-01-02 00:00:00 25.7 kg/m2 [facility] BP Systolic 2023-01-02 00:00:00 115 mm[Hg] [facility] Body Weight 2023-01-02 00:00:00 159 [lb_av] [facility] BP Diastolic 2022-10-02 00:00:00 84 mm[Hg] [facility] Height 2022-10-02 00:00:00 66 [in_i] [facility] BMI (Body Mass Index) 2022-10-02 00:00:00 26 kg/m2 [facility] BP Systolic 2022-10-02 00:00:00 143 mm[Hg] [facility] Weight 2022-10-02 00:00:00 161 [lb_av] [facility] BP Diastolic 2022-07-02 00:00:00 87 mm[Hg] [facility] Height 2022-07-02 00:00:00 66 [in_i] [facility] BMI (Body Mass Index) 2022-07-02 00:00:00 26.3 kg/m2 [facility] BP Systolic 2022-07-02 00:00:00 154 mm[Hg] [facility] Body Weight 2022-07-02 00:00:00 162.8 [lb_av[facility] Diastolic 2022-03-11 00:00:00 82 mm[Hg] [facility] Height 2022-03-11 00:00:00 66 [in_i] [facility] BMI (Body Mass Index) 2022-03-11 00:00:00 26.5 kg/m2 [facility] BP Systolic 2022-03-11 00:00:00 143 mm[Hg] [facility] Body Weight 2022-03-11 00:00:00 164 [lb_av] [facility] Diastolic 2021-12-09 00:00:00 84 mm[Hg] [facility] Height 2021-12-09 00:00:00 66 [in_i] [facility] BMI (Body Mass Index) 2021-12-09 00:00:00 27.3 kg/m2 [facility] BP Systolic 2021-12-09 00:00:00 165 mm[Hg] [facility] Body Weight 2021-12-09 00:00:00 169 [lb_av] [facility] BP Diastolic 2021-09-12 00:00:00 81 mm[Hg] [facility] Height 2021-09-12 00:00:00 66 [in_i] [facility] BMI (Body Mass Index) 2021-09-12 00:00:00 27.6 kg/m2 [facility] BP Systolic 2021-09-12 00:00:00 135 mm[Hg] [facility] Body Weight 2021-09-12 00:00:00 171 [lb_av] [facility] BP Diastolic 2021-06-07 00:00:00 88 mm[Hg] [facility] Height 2021-06-07 00:00:00 66 [in_i] [facility] BMI (Body Mass Index) 2021-06-07 00:00:00 26.6 kg/m2 [facility] BP Systolic 2021-06-07 00:00:00 157 mm[Hg] [facility] Body Weight 2021-06-07 00:00:00 165 [lb_av] [facility] BP Diastolic 2021-04-12 00:00:00 91 mm[Hg] [facility] Height 2021-04-12 00:00:00 66 [in_i] [facility] BMI (Body Mass Index) 2021-04-12 00:00:00 27.1 kg/m2 [facility] BP Systolic 2021-04-12 00:00:00 160 mm[Hg] [facility] Body Weight 2021-04-12 00:00:00 168 [lb_av] [facility] BP Diastolic 2021-03-15 00:00:00 94 mm[Hg] [facility] Height 2021-03-15 00:00:00 66 [in_i] [facility] BMI (Body Mass Index) 2021-03-15 00:00:00 28.1 kg/m2 [facility] BP Systolic 2021-03-15 00:00:00 182 mm[Hg] [facility] Body Weight 2021-03-15 00:00:00 174 [lb_av] [facility] Procedures Procedure Date / Time Performed Performing Clinicia n Source home sleep study 2022-03-11 00:00:00 [facility] home sleep study 2021-09-12 00:00:00 [facility] home sleep study 2021-06-07 00:00:00 [facility] home sleep study 2021-04-12 00:00:00 [facility] XR CERVICAL SPINE 2-3 VIEWS 2020-08-02 19:51:02 Sina Morales [facility] XR THORACIC SPINE 3 VIEWS 2020-08-02 19:51:02 Sina Morales [facility] 2020-04-09 00:00:00 [facility] Post Op Promis 29 Survey 2020-03-08 00:00:00 [facility] 2020-02-24 00:00:00 [facility] Hernia Repair [facility] Section [facility] Plan of Care Planned Activity Planned Date Details Comments Source Diagnostic Test Pending 2023-03-19 00:00:00 glucose, fingerstick, blood [code = glucose, fingerstick, blood] [facility] Diagnostic Test Pending 2023-03-19 00:00:00 hemoglobin A1C, fingerstick [code = hemoglobin A1C, fingerstick] [facility] Diagnostic Test Pending 2023-03-19 00:00:00 parathyroid hormone (PTH)-related peptide, serum or plasma [code = parathyroid hormone (PTH)-related peptide, serum or plasma] [facility] Diagnostic Test Pending 2023-03-19 00:00:00 calcium, ionized, quant, serum or plasma [code = calcium, ionized, quant, serum or plasma] [facility] Diagnostic Test Pending 2023-03-19 00:00:00 CBC w/ auto diff [code = CBC w/ auto diff] [facility] Diagnostic Test Pending 2023-03-19 00:00:00 CMP, serum or plasma [code = CMP, serum or plasma] [facility] Diagnostic Test Pending 2023-03-19 00:00:00 TSH, serum or plasma [code = TSH, serum or plasma] [facility] Diagnostic Test Pending 2023-03-19 00:00:00 T4, free, serum [code = T4, free, serum] [facility] Diagnostic Test Pending 2023-03-19 00:00:00 lipid panel, serum [code = lipid panel, serum] [facility] Diagnostic Test Pending 2023-03-19 00:00:00 microalbumin/creatini ne, mass ratio, urine [code = microalbumin/creatini ne, mass ratio, urine] [facility] Future Appointment 2023-06-18 14:30:00 Eleazar Coronado, [id number] [facility]; [address], [place] [address] [facility] Future Appointment 2023-06-18 00:00:00 Eleazar Coronado, [address]; [address], [place] [address] [facility] Encounters Start Date/Time End Date/Time Encounter Type Admission Type Attending Clinicians Care Facility Care Department Encounter ID Source 2021-07-17 15:11:16 Outpatient [facility] [id number] [facility] 2021-01-29 15:04:09 Outpatient SINA MORALES [facility] [id number] [facility] 2021-01-29 15:03:16 Outpatient [facility] [id number] [facility] 2021-01-29 15:03:16 Outpatient [facility] [id number] [facility] 2020-08-02 15:34:14 Outpatient SINA MORALES [facility] [id number] [facility] 2020-08-02 14:29:13 Outpatient [facility] [id number] [facility] 2020-07-14 03:06:58 Outpatient SINA MORALES [facility] [id number] [facility] 2023-04-01 00:00:00 2023-04-01 00:00:00 Outpatient Daniel_T_HO U_MD VFP VFP [id number] [facility] 2023-03-19 00:00:00 2023-03-19 00:00:00 Outpatient Daniel_T_HO U_MD VFP VFP [id number] [facility] e 2023-03-19 00:00:00 2023-03-19 00:00:00 Eleazar Coronado MD: [id number], [address], [place] [address] , Ph. VFP [place] - [facility] - [place] - VM_HOU_[place] [id number] [facility] e 2023-02-21 00:00:00 2023-02-21 00:00:00 Outpatient Daniel_T_HO U_MD VFP VFP [id number] [facility] e 2023-01-07 00:00:00 2023-01-07 00:00:00 Outpatient Daniel_T_HO U_MD VFP VFP [id number] [facility] e 2023-01-02 00:00:00 2023-01-02 00:00:00 Outpatient Daniel_T_HO U_MD VFP VFP [id number] [facility] 2023-01-02 00:00:00 2023-01-02 00:00:00 Outpatient Daniel_T_HO U_MD VFP VFP [id number] [facility] 2023-01-02 00:00:00 2023-01-02 00:00:00 Eleazar Coronado MD: [id number], [address], [place] [address] , Ph. VFP [place] - [facility] - [place] - VM_HOU_[facility] [id number] [facility] 2022-12-31 00:00:00 2022-12-31 00:00:00 Outpatient Daniel_T_HO U_MD VFP VFP [id number] [facility] 2022-12-28 00:00:00 2022-12-28 00:00:00 Outpatient Daniel_T_HO U_MD VFP VFP [id number] [facility] 2022-11-23 00:00:00 2022-11-23 00:00:00 Outpatient Daniel_T_HO U_MD VFP VFP [id number] [facility] 2022-11-23 00:00:00 2022-11-23 00:00:00 Outpatient Daniel_T_HO U_MD VFP VFP [id number] [facility] 2022-10-02 00:00:00 2022-10-02 00:00:00 Outpatient Daniel_T_HO U_MD VFP VFP [id number] [facility] 2022-10-02 00:00:00 2022-10-02 00:00:00 Outpatient Daniel_T_HO U_MD VFP VFP [id number] [facility] 2022-10-02 00:00:00 2022-10-02 00:00:00 Eleazar Coronado MD: [id number], [address], [place] [address] , Ph. VFP [facility] - [place] - VM_[place] [id number] [facility] 2022-07-31 00:00:00 2022-07-31 00:00:00 Outpatient Daniel_T VFP VFP [id number] [facility] 2022-07-02 00:00:00 2022-07-02 00:00:00 Outpatient Daniel_T VFP VFP [id number] [facility] 2022-07-02 00:00:00 2022-07-02 00:00:00 Outpatient Daniel_T VFP VFP [id number] [facility] 2022-07-02 00:00:00 2022-07-02 00:00:00 Eleazar Coronado MD: [id number] [facility], [address], [place] [address] , Ph. VFP [facility] - [place] - VM_[place] [id number] [facility] 2022-06-29 00:00:00 2022-06-29 00:00:00 Outpatient Daniel_T VFP VFP [id number] [facility] 2022-06-18 00:00:00 2022-06-18 00:00:00 Outpatient Daniel_T VFP VFP [id number] [facility] 2022-05-14 00:00:00 2022-05-14 00:00:00 Outpatient Daniel_T VFP VFP [id number] [facility] 2022-03-11 00:00:00 2022-03-11 00:00:00 Outpatient Daniel_T VFP VFP [id number] [facility] 2022-03-11 00:00:00 2022-03-11 00:00:00 Outpatient Daniel_T VFP VFP [id number] [facility] 2022-03-11 00:00:00 2022-03-11 00:00:00 Outpatient Daniel_T VFP VFP [id number] [facility] 2022-03-11 00:00:00 2022-03-11 00:00:00 Eleazar Coronado MD: [id number], [address], [place] [address] , Ph. VFP [place] - [facility] - [place] - VM_DEMARUCalebd [place] [id number] [facility] 2022-03-09 00:00:00 2022-03-09 00:00:00 Outpatient Daniel_T VFP VFP [id number] [facility] 2022-03-07 00:00:00 2022-03-07 00:00:00 Outpatient Daniel_T VFP VFP [id number] [facility] 2021-12-09 00:00:00 2021-12-09 00:00:00 Outpatient Daniel_T VFP VFP [id number] [facility] 2021-12-09 00:00:00 2021-12-09 00:00:00 Eleazar Coronado MD: [id number], [address], [place] [address] , Ph. [place] [facility] - [place] VM_DEMARUCalebd [place] [id number] [facility] 2021-12-05 00:00:00 2021-12-05 00:00:00 Outpatient Daniel_T VFP VFP [id number] [facility] 2021-12-04 00:00:00 2021-12-04 00:00:00 Outpatient Daniel_T VFP VFP [id number] [facility] 2021 11:27:00 2021 11:27:00 Outpatient Daniel_T VFP VFP [id number] [facility] 2021-09-12 04:27:00 2021-09-12 04:27:00 Outpatient Daniel_T VFP VFP [id number] [facility] 2021-09-12 00:00:00 2021-09-12 00:00:00 Eleazar Coronado MD: [id number], [address], [place] [address] , Ph. VFP [place] - [facility] - VM_HOU_[place] [id number] [facility] 2021-09-03 01:42:00 2021-09-03 01:42:00 Outpatient Daniel_T VFP VFP [id number] [facility] 2021-09-03 01:42:00 2021-09-03 01:42:00 Outpatient Daniel_T VFP VFP [id number] [facility] 2021-07-31 04:11:00 2021-07-31 04:11:00 Outpatient Daniel_T VFP VFP [id number] [facility] 2021-06-13 05:32:00 2021-06-13 05:32:00 Outpatient Daniel_T VFP VFP [id number] [facility] 2021-06-07 03:34:00 2021-06-07 03:34:00 Outpatient Daniel_T VFP VFP [id number] [facility] 2021-06-07 00:00:00 2021-06-07 00:00:00 Eleazar Coronado MD: [id number], [facility] [address], [place] [address] , Ph. VFP [place] - [facility] - VM_HOU_[place] [id number] [facility] 2021-05-21 03:41:00 2021-05-21 03:41:00 Outpatient Daniel_T VFP VFP [id number] [facility] 2021-04-15 06:44:00 2021-04-15 06:44:00 Outpatient Daniel_T VFP VFP [id number] [facility] 2021-04-12 03:46:00 2021-04-12 03:46:00 Outpatient Daniel_T VFP VFP [id number] [facility] 2021-04-12 00:00:00 2021-04-12 00:00:00 Eleazar Coronado MD: [id number], [address], [place] [address] , Ph. VFP [place] - [facility] - VM_HOU_[place] [id number] [facility] 2021-04-08 05:38:00 2021-04-08 05:38:00 Outpatient Daniel_T VFP VFP [id number] [facility] 2021-03-22 09:30:00 2021-03-22 09:30:00 Outpatient Daniel_T VFP VFP [id number] [facility] 2021-03-15 12:13:00 2021-03-15 12:13:00 Outpatient Daniel_T VFP VFP [id number] [facility] 2021-03-15 00:00:00 2021-03-15 00:00:00 Eleazar Coronado MD: [address], [address], [place] [address] , Ph. VFP [place] - [facility] - VM_HOU_[place] [id number] [facility] 2021-03-11 03:32:00 2021-03-11 03:32:00 Outpatient Daniel_T VFP VFP [id number] [facility] 2021-02-06 10:35:00 2021-02-06 10:35:00 Outpatient Daniel_T VFP VFP [id number] [facility] 2020-08-02 14:02:53 2020-08-02 15:32:57 Office Visit Sina Morales [facility] [address] [facility] [id number] [facility] 2020-04-03 12:30:00 2020-04-03 12:30:00 Appointmen t; SINA MORALES M.D. LADOR, RAN, M.D. [facility] [id number] [facility] 2020-02-24 12:00:00 2020-02-24 12:00:00 SINA Basilio M.D. LADOR, RAN, M.D. [facility] [id number] [facility] Results Test Description Test Time Test Comments Results Result Co mments Source [facility] [Mass/volume] in Capillary [id number] 14:40:14* Test Item Value Reference Range Interpretation Comme nts Blood Glucose: mg/dl (test c ode = Blood Glucose: mg/dl) 116 [facility] PracticeHemoglobin A1c measurement device [id number] 11:24:17* Test Item Value Reference Range Interpretation Comme nts Hemoglobin A1c/Hemoglobin.to mary in Blood (test code = 4548-4) 7.5 % 4.0-6.4 [facility] PracticeGl[facility] [Mass/volume] in Capillary [id number] 11:15:59* Test Item Value Reference Range Interpretation Comme nts Blood Glucose: mg/dl (test c ode = Blood Glucose: mg/dl) 184 [facility] PracticeHemoglobin A1c measurement device [id number] 11:13:36* Test Item Value Reference Range Interpretation Comme nts Hemoglobin A1c/Hemoglobin.to mary in Blood (test code = 4548-4) 7.4 % 4.0-6.4 [facility] PracticeGlucose [Mass/volume] in Capillary [id number] 11:03:28* Test Item Value Reference Range Interpretation Comme nts Blood Glucose: mg/dl (test c ode = Blood Glucose: mg/dl) 185 [facility] PracticeHemoglobin A1c measurement device [id number] 11:27:44* Test Item Value Reference Range Interpretation Comme nts Hemoglobin A1c/Hemoglobin.to mary in Blood (test code = 4548-4) 7.2 % 4.0-5.6 [facility] PracticeHemoglobin A1c measurement device [id number] 11:27:44* Test Item Value Reference Range Interpretation Comme nts Hemoglobin A1c/Hemoglobin.to mary in Blood (test code = 4548-4) 7.2 % 4.0-5.6 [facility] PracticeHemoglobin A1c measurement device [id number] 11:27:44* Test Item Value Reference Range Interpretation Comme nts Hemoglobin A1c/Hemoglobin.to mary in Blood (test code = 4548-4) 7.2 % 4.0-5.6 [facility]Gl[facility] [Mass/volume] in Capillary [id number] 11:22:26* Test Item Value Reference Range Interpretation Comme nts Blood Glucose: mg/dl (test c ode = Blood Glucose: mg/dl) 142 [facility] PracticeGlucose [Mass/volume] in Capillary [id number] 11:22:26* Test Item Value Reference Range Interpretation Comme nts Blood Glucose: mg/dl (test c ode = Blood Glucose: mg/dl) 142 [facility] PracticeGlucose [Mass/volume] in Capillary [id number] 11:22:26* Test Item Value Reference Range Interpretation Comme nts Blood Glucose: mg/dl (test c ode = Blood Glucose: mg/dl) 142 [facility] [id number] 15:25:56* Test Item Value Reference Range Interpretation Comme nts Hemoglobin A1c/Hemoglobin.to mary in Blood (test code = 4548-4) 7.5 % 5.7-6.4 [facility] PracticeGlucose [Mass/volume] in Capillary [id number] 15:22:08* Test Item Value Reference Range Interpretation Comme nts Blood Glucose: mg/dl (test c ode = Blood Glucose: mg/dl) 156 [facility] PracticeHemoglobin A1c measurement device [id number] 15:29:41* Test Item Value Reference Range Interpretation Comme nts Hemoglobin A1c/Hemoglobin.to mary in Blood (test code = 4548-4) 7.2 % 5.7-6.4 [facility] PracticeGlucose [Mass/volume] in Capillary [id number] 15:27:23* Test Item Value Reference Range Interpretation Comme nts Blood Glucose: mg/dl (test c ode = Blood Glucose: mg/dl) 124 [facility] PracticeHemoglobin A1c measurement device [id number] 14:09:08* Test Item Value Reference Range Interpretation Comme nts Hemoglobin A1c/Hemoglobin.to mary in Blood (test code = 4548-4) 7.8 % 5.7-6.4 [facility] [Mass/volume] in Capillary [id number] 14:08:57* Test Item Value Reference Range Interpretation Comme nts Blood Glucose: mg/dl (test c ode = Blood Glucose: mg/dl) 191 [facility] [id number] 14:01:14* Test Item Value Reference Range Interpretation Comme nts Hemoglobin A1C Fingerstick: (test code = Hemoglobin A1C Fingerstick:) 7.4 [facility] PracticeHemoglobin A1c measurement device [id number] 14:01:14* Test Item Value Reference Range Interpretation Comme nts Hemoglobin A1C Fingerstick: (test code = Hemoglobin A1C Fingerstick:) 7.4 [facility] PracticeGlucose [Mass/volume] in Capillary [id number] 13:59:15* Test Item Value Reference Range Interpretation Comme nts Blood Glucose: mg/dl (test c ode = Blood Glucose: mg/dl) 132 [facility] PracticeGlucose [Mass/volume] in Capillary [id number] 13:59:15* Test Item Value Reference Range Interpretation Comme nts Blood Glucose: mg/dl (test c ode = Blood Glucose: mg/dl) 132 [facility] PracticeHemoglobin A1c measurement device [id number] 09:58:19* Test Item Value Reference Range Interpretation Comme nts Hemoglobin A1C Fingerstick: (test code = Hemoglobin A1C Fingerstick:) 8.4 [facility] PracticeHemoglobin A1c measurement device [id number] 09:58:19* Test Item Value Reference Range Interpretation Comme nts Hemoglobin A1C Fingerstick: (test code = Hemoglobin A1C Fingerstick:) 8.4 [facility] PracticeGlucose [Mass/volume] in Capillary [id number] 09:58:12* Test Item Value Reference Range Interpretation Comme nts Blood Glucose: mg/dl (test c ode = Blood Glucose: mg/dl) 292 [facility] PracticeGlucose [Mass/volume] in Capillary [id number] 09:58:12* Test Item Value Reference Range Interpretation Comme nts Blood Glucose: mg/dl (test c ode = Blood Glucose: mg/dl) 292 [facility] PracticeXR thoracic spine 3 [id number] 20:32:56X-rays performed to the thoracic spine in AP and lateral views which were reviewed by myself and compared to previous imaging show normal alignment of the thoracic spine and normal position of all screws and hardware[facility] 2 or 3 [id number] 20:32:38Extrapulmonary in the cervical and thoracic spine including AP, lateral and open-mouth views which were reviewed by myself and compared to previous imaging show normal position of all hardware and normal alignment of the cervical thoracic spine.[facility][U] XRAY SPINE CERVICAL 2 OR 3 VWS [id number] 12:55:00Images acquired, not reported on this accession number.[facility][U] XRAY SPINE THORACIC 2 VWS [id number] 12:55:00Images acquired, not reported on this accession number.[facility][U] XRAY SPINE THORACIC 2 VWS [id number] 12:04:00Images acquired, not reported on this accession number.[facility][U] XRAY SPINE CERVICAL 2 OR 3 VWS [id number] 12:04:00Images acquired, not reported on this accession number[facility]
[2023-05-06 21:42] LABS: Absolute Lymphocytes (CBC) 0.5 K/uL (0.7-4.9); Hematocrit 44.7 % (36.0-45.0); Lymphocytes % 4.1 % (15.3-44.8); MCV 88.2 fL (80-100); Platelets 290 thou/uL (152-406); RBC Red Blood Cell Count 5.07 M/uL (3.86-4.86)
[2023-05-06 22:03] LABS: Albumin 3.4 g/dL (3.4-5.0); Bilirubin Total 0.6 mg/dL (0.2-1.0); Potassium 3.5 mEq/L (3.5-5.1); Protein, Total 7.4 g/dL (6.4-8.2)
--- NOTE | 2023-05-06 23:54 | EDPHYS ---
Physician Documentation [facility] Name: Feli Rae Age: 82 yrs Sex: Female : 1940 Arrival Date: 05/06/2023 Time: 21:20 Bed 5 Private MD: ED Physician Jona Sanford HPI: 05/06 21:24 This 82 yrs old Female presents to ER via EMS with complaints of sp4 Nausea/Vomiting/Diarrhea. 23:47 Is a very pleasant 82-year-old female who presents with EMS for acute onset nausea sp4 vomiting and diarrhea after eating shrimp earlier in the day. Patient developed profuse vomiting and watery diarrhea after consuming shrimp. She denied any abdominal pain. EMS administered Zofran IV 4 mg started patient on 1 L of fluids. . Historical: - Allergies: 21:23 Codeine; bp 21:23 PENICILLINS; bp 21:23 Sulfa (Sulfonamide Antibiotics); bp - Home Meds: 21:23 Mounjaro subcutaneous [Active]; Metoprolol Tartrate Oral [Active]; Jardiance oral bp [Active]; - PMHx: 21:23 Diabetes - NIDDM; Hypertension; Hypertension; bp - PSHx: 21:23 section; Hand - Right; hernia repair; hysterectomy; bp - Immunization history:: Adult Immunizations up to date. - Social history:: Smoking status: Patient denies any tobacco usage or history of. - Family history:: not pertinent. ROS: 23:47 Constitutional: Negative for fever, chills, and weight loss, positive nausea vomiting sp4 and diarrhea 23:47 All other systems are negative, Exam: 23:47 Constitutional: This is a well developed, well nourished patient who is awake, alert, sp4 and in no acute distress. Head/Face: Normocephalic, atraumatic. Eyes: Pupils equal round and reactive to light, extra-ocular motions intact. Lids and lashes normal. Conjunctiva and sclera are not injected. Cornea within normal limits. Periorbital areas with no swelling, redness, or edema. ENT: Nares patent. No nasal discharge, no septal abnormalities noted. Tympanic membranes are normal and external auditory canals are clear. Oropharynx with no redness, swelling, or masses, exudates, or evidence of obstruction, uvula midline. Mucous membranes moist. Neck: Trachea midline, no thyromegaly or masses palpated, and no cervical lymphadenopathy. Supple, full range of motion without nuchal rigidity, or vertebral point tenderness. Chest/axilla: Normal chest wall appearance and motion. Nontender with no deformity. No lesions are appreciated. Cardiovascular: Regular rate and rhythm with a normal S1 and S2. No gallops, murmurs, or rubs. Normal PMI, no JVD. No pulse deficits. Respiratory: Lungs have equal breath sounds bilaterally, clear to auscultation and percussion. No rales, rhonchi or wheezes noted. No increased work of breathing, no retractions or nasal flaring. Abdomen/GI: Soft, with normal bowel sounds. No distension or tympany. No guarding or rebound. No evidence of tenderness throughout. Back: No spinal tenderness. No costovertebral tenderness. Skin: Warm, dry with normal turgor. Normal color with no rashes, no lesions, and no evidence of cellulitis. MS/ Extremity: Pulses equal, no cyanosis. Neurovascular intact. Full, normal range of motion. Neuro: Awake and alert, GCS 15, oriented to person, place, time, and situation. Cranial nerves II-XII grossly intact. Motor strength 5/5 in all extremities. Sensory grossly intact. Psych: Awake, alert, with orientation to person, place and time. Behavior, mood, and affect are within normal limits Vital Signs: 21:21 BP 170 / 80; Pulse 100; Resp 16; Temp 98.1; Pulse Ox 96% ; Weight 67.13 kg; Height 5 bp ft. 6 in. ; 21:21 Body Mass Index 23.89 (67.13 kg, 167.64 cm) bp Bridgett Coma Score: 23:47 Eye Response: spontaneous(4). Motor Response: obeys commands(6). Verbal Response: sp4 oriented(5). Total: 15. MDM: 22:53 Patient medically screened. sp4 23:47 Differential diagnosis: gastritis, pancreatitis, viral gastroenteritis, sp4 gastroenteritis. Data reviewed: vital signs, nurses notes, EMS record, lab test result(s). Consideration of Admission/Observation Escalation of care including admission/observation considered. ED course: Resolved after IV hydration and additional dose of IV Zofran.. Will recommend clear liquid diet we will also recommend Zofran as needed for nausea. Antidiarrheals are not indicated for this age group. . 05/06 21:21 Order name: CBC with Diff; Complete Time: 23:35 sp4 05/06 21:21 Order name: CMP; Complete Time: 23:35 sp4 05/06 21:21 Order name: Lipase; Complete Time: 23:35 sp4 05/06 21:21 Order name: IV Saline Lock; Complete Time: 21:25 sp4 05/06 21:21 Order name: Labs collected and sent; Complete Time: 21:38 sp4 Administered Medications: 21:37 Drug: Ondansetron IVP 4 mg IVP once; over 2 minutes Route: IVP; Site: right antecubital;bp Disposition Summary: 05/06/23 23:53 Discharge Ordered Notes: Location: Home sp4 Problem: new sp4 Symptoms: have improved sp4 Condition: Stable sp4 Diagnosis - Acute food poisoning, acute gastroenteritis sp4 Followup: sp4 - With: Private Physician - When: 7 - 10 days - Reason: Recheck today's complaints Followup: sp4 - With: Abril Oneill MD - When: 7 - 10 days - Reason: Recheck today's complaints Discharge Instructions: - Discharge Summary Sheet sp4 - Clear Liquid Diet, Adult, [id number] sp4 - Food Poisoning, [id number] sp4 Forms: - Patient Portal Instructions sp4 Prescriptions: - ondansetron 4 mg Oral Tablet,disintegrating - take 1 tablet ORAL route every 8 hours for 5 days PRN nausea; 30 tablet; sp4 Refills: 0, Product Selection Permitted Signatures: Dispatcher [employer] Yung Saucedo, KALIE RN Jona Foster MD MD sp4
--- NOTE | 2023-05-06 23:54 | ER ---
Nurse's Notes [facility] Name: Feli Rae Age: 82 yrs Sex: Female : 1940 Arrival Date: 05/06/2023 Time: 21:20 Bed 5 Private MD: Diagnosis: Acute food poisoning, acute gastroenteritis Presentation: 05/06 21:21 Chief complaint: EMS states: NAUSEA, VOMITING AND DIARRHEA 2 HR AFTER EATING SHRIMP. bp Coronavirus screen: At this time, the client does not indicate any symptoms associated with coronavirus-19. Ebola Screen: No symptoms or risks identified at this time. Initial Sepsis Screen: Does the patient meet any 2 criteria? No. Patient's initial sepsis screen is negative. Does the patient have a suspected source of infection? No. Patient's initial sepsis screen is negative. Risk Assessment: Do you want to hurt yourself or someone else? Patient reports no desire to harm self or others. Onset of symptoms was May 06, 2023 at 16:00. Care prior to arrival: Medication(s) given: Normal saline infusion, 500 mL, zofran 4 mg, IV initiated. 20 GA, in the right antecubital area, Glucose check: 183. 21:21 Method Of Arrival: EMS: [facility] bp 21:21 Acuity: RAFAEL 3 bp Triage Assessment: 21:23 General: Appears in no apparent distress. Behavior is calm, cooperative, appropriate bp for age. Pain: Complains of pain in abdomen. GI: Reports cramping, diarrhea, nausea, vomiting. Historical: - Allergies: 21:23 Codeine; bp 21:23 PENICILLINS; bp 21:23 Sulfa (Sulfonamide Antibiotics); bp - Home Meds: 21:23 Mounjaro subcutaneous [Active]; Metoprolol Tartrate Oral [Active]; Jardiance oral bp [Active]; - PMHx: 21:23 Diabetes - NIDDM; Hypertension; Hypertension; bp - PSHx: 21:23 section; Hand - Right; hernia repair; hysterectomy; bp - Immunization history:: Adult Immunizations up to date. - Social history:: Smoking status: Patient denies any tobacco usage or history of. - Family history:: not pertinent. Screenin:24 [facility] ED Fall Risk Assessment (Adult) History of falling in the last 3 months, bp including since admission No falls in past 3 months (0 pts). Abuse screen: Denies threats or abuse. Denies injuries from another. Nutritional screening: No deficits noted. Tuberculosis screening: No symptoms or risk factors identified. Assessment: 21:24 General: SEE TRIAGE NOTE. GI: Abdomen is non-distended. bp Vital Signs: 21:21 BP 170 / 80; Pulse 100; Resp 16; Temp 98.1; Pulse Ox 96% ; Weight 67.13 kg; Height 5 bp ft. 6 in. ; 21:21 Body Mass Index 23.89 (67.13 kg, 167.64 cm) bp Bridgett Coma Score: 23:47 Eye Response: spontaneous(4). Motor Response: obeys commands(6). Verbal Response: sp4 oriented(5). Total: 15. ED Course: 21:21 Patient arrived in ED. bp 21:21 Jona Sanford MD is Attending Physician. sp4 21:23 Triage completed. bp 21:23 Arm band placed on. bp 21:24 Patient has correct armband on for positive identification. bp 21:24 Maintain EMS IV. Dressing intact. Good blood return noted. Site clean \T\ dry. Gauge \T\ bp site: 20 GA R AC. 21:37 Yung Ferguson, KALIE is Primary Nurse. bp 23:52 Abril Oneill MD is Referral Physician. sp4 00:19 No provider procedures requiring assistance completed. IV discontinued, intact, vc1 bleeding controlled, No redness/swelling at site. Pressure dressing applied. Administered Medications: 05/06 21:37 Drug: Ondansetron IVP 4 mg IVP once; over 2 minutes Route: IVP; Site: right antecubital;bp Medication: 21:24 VIS not applicable for this client. bp Outcome: 23:53 Discharge ordered by . sp4 00:19 Discharged to home via wheelchair, with friend, vc1 Condition: good Discharge instructions given to patient, Instructed on discharge instructions, follow up and referral plans. medication usage, Demonstrated understanding of instructions, follow-up care, medications, Prescriptions given X 1, 00:19 Patient left the ED. vc1 Signatures: Yung Ferguson RN RN bp Katie Haley RN RN vc1 Jona Sanford MD MD sp4
[2023-05-07 01:19] VITALS: BP 170/80; TEMP 98.1; O2SAT 96
== END ==
LOC: ER 21:20
DX: A05.9 Bacterial foodborne intoxication, unspecified (principal); E11.9 Type 2 diabetes mellitus without complications; I10 Essential (primary) hypertension; Z88.0 Allergy status to penicillin; Z88.2 Allergy status to sulfonamides; Z88.5 Allergy status to narcotic agent
CPT/HCPCS: 85025; 36415; 83690; 80053; J2405